=== PATIENT | female | born 1945 | race Caucasian/White ===

== ENCOUNTER 2023-01-14 14:18 | Emergency (ER) | payer MEDICARE, SELFPAY ==
[2023-01-14 14:32] VITALS: BP 134/74; PULSE 81; RESP 18; TEMP 36.4; O2SAT 96; BMI 26.6
--- NOTE | 2023-01-14 14:46 | CRLHL7_ITS ---
For Patients: As a result of the Century Cures Act, medical imaging exams and procedure reports are released immediately into your electronic medical record. You may view this report before your referring provider. If you have questions, please contact your health care provider. Indication: Chest pain Technique: Chest 1 view Comparison: Chest x-ray 05/15/2022 Findings/Impression: Cardiovascular and mediastinum: Normal heart size with mild aortic tortuosity. Lungs and pleural space: No pleural effusion or pneumothorax. No focal pulmonary consolidation. Bones and soft tissues: No acute findings. Dictated by Harjeet Lozada MD @ 01/14/2023 3:18:50 PM (Electronically Signed)
[2023-01-14 15:13] LABS: Basophils Absolute Auto 0.03 K/uL (0.00-0.30); Basophils Percent Auto 0.4 % (0.0-3.0); Eosinophils Absolute Auto 0.07 K/uL (0.00-0.50); Hematocrit 40.8 % (33.0-51.0); Hemoglobin* 13.4 gm/dL (12.0-16.0); Immature Granulocytes Abs Auto 0.07 K/uL (0.00-0.30); Lymphocytes Absolute Auto 2.05 K/uL (0.90-2.90); Lymphocytes Percent Auto 28.1 % (20-44); Mean Corpuscular HGB Conc 33 gm/dL (32-36); Mean Corpuscular Hemoglobin 30 pg (26-34); Mean Corpuscular Volume 90 fL (80-100); Monocytes Percent Auto 6.3 % (0.0-11.0); Neutrophils Absolute Auto 4.62 K/uL (1.7-7.0); Neutrophils Percent Auto 63.2 % (42.0-72.0); Platelet Count* 246 K/uL (140-440); RDW Coefficient of Variation % 13.2 % (11.5-15.5); Red Blood Count 4.53 m/uL (4.00-5.20)
[2023-01-14 15:20] LABS: Slide Review Reflex No
[2023-01-14 15:25] LABS: Chloride* 108 mmol/L (96-114)
[2023-01-14 15:26] LABS: Potassium* 3.8 mmol/L (3.6-5.1); Sodium* 137 mmol/L (135-149)
[2023-01-14 15:28] LABS: Creatinine* 0.8 mg/dL (0.5-1.5); Est. Creatinine Clearance* 50.02; Estimated Glomerular Filt Rate 76 ml/min
[2023-01-14 15:29] LABS: Blood Urea Nitrogen* 18 mg/dL (7-30); Calcium* 9.2 mg/dL (8.4-10.6); Carbon Dioxide* 22 mmol/L (20-32); Glucose* 101 mg/dL (60-115)
[2023-01-14 15:42] LABS: NT Pro B Type NatriureticPept* 4330 pg/mL; Troponin I* 0.47 ng/mL (0.01-0.04)
--- NOTE | 2023-01-14 15:59 | ED_ITS ---
HPI - Chest Pain General Chief Complaint: Chest Pain Stated Complaint: Shoulder/head/teeth pain--heart attack concern Time Seen by Provider: 01/14/23 14:28 History of Present Illness HPI narrative: Patient is a 77-year-old woman who developed chest pain with radiation to her jaw 2 days ago wall walking in the heat. Patient went home and rested and felt better. Today she developed shortness of breath with minimal chest pain upon ambulating in her house. She has had shortness of breath with activity as well. She has had no nausea no vomiting no fevers no chills no change in her bowel or bladder. Patient has history of takotsubo cardiomyopathy after stressful event states she has been under stress currently. She states she has been compliant with her medications which include atorvastatin losartan for a cardiovascular reasons. No other complaints patient otherwise feels like she has been in her usual state of health. Related Data Home Medications Medication Instructions Recorded Confirmed albuterol sulfate 90 mcg/actuation inhalation 05/15/22 05/15/22 aerosol inhaler atorvastatin 40 mg tablet 40 mg PO 05/15/22 05/15/22 levothyroxine 100 mcg tablet 100 mcg PO 05/15/22 05/15/22 losartan 50 mg tablet 50 mg PO 05/15/22 05/15/22 mometasone-formoterol HFA 200 inhalation 05/15/22 05/15/22 mcg-5 mcg/actuation aerosol inhaler (Dulera) pantoprazole 20 mg tablet,delayed mg PO 05/15/22 05/15/22 release Allergies Allergy/AdvReac Type Severity Reaction Status Date / Time Penicillins Allergy Verified 01/14/23 14:36 Sulfa (Sulfonamide Allergy Verified 01/14/23 14:36 Antibiotics) Review of Systems Status of ROS Reports: 10 or more systems reviewed and unremarkable except as noted in History and below [facility] Medical History (Updated 01/14/23 @ 16:19 by Dallas Edward MD) Hyperlipidemia ?E78.5 - Hyperlipidemia, unspecified (ICD-10) Hypertension ?I10 - Essential (primary) hypertension (ICD-10) Takotsubo cardiomyopathy ?I51.81 - Takotsubo syndrome (ICD-10) Flu ?J11.1 - Influenza due to unidentified influenza virus with other respiratory manifestations (ICD-10) Wheeze ?R06.2 - Wheezing (ICD-10) Cough ?R05.9 - Cough, unspecified (ICD-10) Social History Smoking Status: Never smoker Non-prescribed substance use: denies use Exam Narrative Exam Narrative: EXAM GENERAL: Patient appears comfortable and well. EYES: No scleral icterus. ENT: Tympanic membranes and oropharynx normal. THYROID: no thyroid nodules or thyromegaly. LYMPH: No supraclavicular or cervical lymphadenopathy. SKIN: Visible skin seen during exam normal or with benign process only. EXT: No dependent lower extremity pedal edema. HEART: Regular rate and rhythm with no murmurs, rubs, or gallops. LUNGS: Clear to auscultation bilaterally with no crackles or wheezes. ABD: Soft, non tender, non distended. PSYCH: Good eye contact, speech is not pressured. Const Vital Signs, click to edit/add: Vital Signs - 24 hr 01/14/23 14:32 01/14/23 16:05 01/14/23 16:06 Temperature 97.6 F Pulse Rate 74 73 Pulse Rate [Right Pulse Oximeter] 81 Respiratory Rate 18 Blood Pressure 144/87 H 144/87 H Blood Pressure [Right Upper Arm] 134/74 Pulse Oximetry 96 91 97 Oxygen Delivery Method Room Air Course Course Hospital Course: Patient seen examined. EKG troponin electrolytes blood count proBNP chest x-ray pending. Vital Signs Vital signs: Initial Vital Signs Temperature 97.6 F 01/14/23 14:32 Temperature Source Temporal Artery Scan 01/14/23 14:32 Pulse Rate 81 01/14/23 14:32 Respiratory Rate 18 01/14/23 14:32 Blood Pressure 134/74 01/14/23 14:32 Blood Pressure Mean 94 01/14/23 14:32 Blood Pressure Position Sitting 01/14/23 14:32 Pulse Oximetry 96 01/14/23 14:32 Oxygen Delivery Method Room Air 01/14/23 14:32 Vital Signs Temperature 97.6 F 01/14/23 14:32 Pulse Rate 81 01/14/23 14:32 Respiratory Rate 18 01/14/23 14:32 Blood Pressure 134/74 01/14/23 14:32 Pulse Oximetry 96 01/14/23 14:32 Oxygen Delivery Method Room Air 01/14/23 14:32 Temperature 97.6 F 01/14/23 14:32 Pulse Rate 73 01/14/23 16:06 Respiratory Rate 18 01/14/23 14:32 Blood Pressure 144/87 H 01/14/23 16:06 Pulse Oximetry 97 01/14/23 16:06 Oxygen Delivery Method Room Air 01/14/23 14:32 MDM - Chest Pain MDM Narrative Medical decision making narrative: Patient is 77-year-old woman with history of takotsubo cardiomyopathy approximately 7-8 years ago who presents with chest pain occurring 48 hours ago with a mild recurrence earlier today. EKG upon my review shows lateral and inferior flipped T-waves. Her troponin does come back at 0.47. At this time I did speak with Cardiology and they do recommend aspirin 325 as well as metoprolol 25 mg orally. They do accept the patient is a transfer with a less than 4 hour delay. She will remain on telemetry. Monitor for return of symptoms. Patient is known to the [facility] due to her history of takotsubo cardiomyopathy. Differential Diagnosis Differential diagnosis: Likely fracture of rib, pneumothorax, stable angina, unstable angina pectoris, atypical chest pain, st elevation myocardial infarction, costochondritis and chest pain Lab Data Labs: Lab Results 01/14/23 Range/Units 15:05 WBC 7.30 (4.50-11.00) K/uL RBC 4.53 (4.00-5.20) m/uL Hgb 13.4 (12.0-16.0) gm/dL Hct 40.8 (33.0-51.0) % MCV 90 (80-100) fL MCH 30 (26-34) pg MCHC 33 (32-36) gm/dL RDW Coeff of Rosa 13.2 (11.5-15.5) % Plt Count 246 (140-440) K/uL Neut % (Auto) 63.2 (42.0-72.0) % Lymph % (Auto) 28.1 (20-44) % O'Brien % (Auto) 6.3 (0.0-11.0) % Eos % (Auto) 1.0 (0.0-7.0) % Baso % (Auto) 0.4 (0.0-3.0) % Neut # (Auto) 4.62 (1.7-7.0) K/uL Lymph # (Auto) 2.05 (0.90-2.90) K/uL O'Brien # (Auto) 0.50 (0.00-0.90) K/UL Eos # (Auto) 0.07 (0.00-0.50) K/uL Baso # (Auto) 0.03 (0.00-0.30) K/uL Abs Immat Gran (auto) 0.07 (0.00-0.30) K/uL Imm/Tot Granulo (auto) 1.0 % Sodium 137 (135-149) mmol/L Potassium 3.8 (3.6-5.1) mmol/L Chloride 108 (96-114) mmol/L Carbon Dioxide 22 (20-32) mmol/L BUN 18 (7-30) mg/dL Creatinine 0.8 (0.5-1.5) mg/dL Estimated Creat Clear 50.02 Estimated GFR 76 ml/min Glucose 101 (60-115) mg/dL Calcium 9.2 (8.4-10.6) mg/dL Troponin I 0.47 H* (0.01-0.04) ng/mL NT-Pro-B Natriuret Pep 4330 pg/mL Discharge Plan Discharge Clinical Impression: Non-ST elevated myocardial infarction (non-STEMI) Patient Disposition: Xfer [facility] Discharge Location: [facility] Condition: Stable Instructions: High Troponin Levels (ED) Activity Level: Other Discharge Diet: Other Prescriptions: No Action losartan 50 mg tablet 50 mg PO Patient Comments: TAKE ONE TABLET BY MOUTH ONE TIME DAILY levothyroxine 100 mcg tablet 100 mcg PO Patient Comments: TAKE ONE TABLET BY MOUTH ONE TIME DAILY atorvastatin 40 mg tablet 40 mg PO Patient Comments: TAKE ONE TABLET BY MOUTH ONE TIME DAILY AT BEDTIME pantoprazole 20 mg tablet,delayed release (DR/EC) PO Patient Comments: TAKE ONE TABLET BY MOUTH ONE TIME DAILY Dulera 200-5 mcg/actuation HFA aerosol inhaler inhalation Patient Comments: INHALE TWO PUFFS BY MOUTH TWICE DAILY albuterol sulfate 90 mcg/actuation HFA aerosol inhaler inhalation Patient Comments: Inhale 1-2 Puffs by mouth every 4 hours if needed for Shortness of Breath or Wheezing Follow Up/Referrals: Niall Long MD [Primary Care Provider] - Stand Alone Forms: P[employer] Info Instructions
[2023-01-14 16:05] VITALS: BP 144/87; PULSE 74; O2SAT 91
[2023-01-14 16:06] VITALS: BP 144/87; PULSE 73; O2SAT 97
[2023-01-14] MEDS: ASPIRIN 81 MG TAB.CHEW 324 MG PO (16:42)
[2023-01-14] MEDS: METOPROLOL TARTRATE 25 MG TABLET PO (16:42)
--- NOTE | 2023-01-14 17:17 | ED.NURSE ---
report given to Andres at [facility]
[2023-01-14 17:22] VITALS: PULSE 66; O2SAT 97
[2023-01-14 17:23] VITALS: BP 152/89; PULSE 68; O2SAT 96
[2023-01-14 17:36] VITALS: BP 152/89; PULSE 67; RESP 16
== END 2023-01-14 17:39 | disposition short-term general hospital (02) ==
PROVIDERS: Emergency Provider Internal Medicine; PCP Family Medicine
DX: I21.4 Non-ST elevation (NSTEMI) myocardial infarction (principal)
CPT/HCPCS: 36415; 71045; 80048; 83880; 84484; 85025; 93005; 99284; 99285; A9270

== ENCOUNTER 2023-01-14 17:33 | Outpatient (CLI) | payer MEDICARE, SELFPAY | END 2023-01-14 17:34 | disposition home or self-care (01) | LOC: AMB 01-19 10:35 | PROVIDERS: PCP Family Medicine; Visit Provider Emergency Medicine Emergency Medical Services | DX: I21.4 Non-ST elevation (NSTEMI) myocardial infarction (principal) | CPT/HCPCS: A0425; A0427 ==

== ENCOUNTER 2023-01-17 18:05 | Inpatient (IN) | payer MEDICARE, SELFPAY ==
[2023-01-17] VITALS (14 sets, daily range): BP systolic 118–173; BP diastolic 61–88; PULSE 59–75; RESP 18–20; TEMP 36.2–36.7; O2SAT 95–98; BMI 27.0; BMI 27.5
--- NOTE | 2023-01-17 18:23 | CRLHL7_ITS ---
For Patients: As a result of the Century Cures Act, medical imaging exams and procedure reports are released immediately into your electronic medical record. You may view this report before your referring provider. If you have questions, please contact your health care provider. INDICATION: Chest pain TECHNIQUE: Chest 2 views COMPARISON: 05/15/2022, 01/14/2023 FINDINGS: Lung volumes are mildly increased. Cardiomegaly. Tortuosity of the aorta. Mild areas of scarring. No infiltrate. No effusion. No edema or pneumothorax. No fracture. IMPRESSION: No acute findings. Dictated by Juan C Reyes MD @ 01/17/2023 8:05:21 PM (Electronically Signed)
--- NOTE | 2023-01-17 18:30 | ED.CHESTPAIN ---
HPI - Chest Pain General Date Seen: 01/17/23 Chief Complaint: Chest Pain Stated Complaint: chest feels off, heart attack on Wednesday Time Seen by Provider: 01/17/23 18:05 Source: patient and family Mode of arrival: ambulatory Limitations: no limitations History of Present Illness HPI narrative: This very nice 77-year-old female presents with chest pain, she says she just feels feels just is sick, he says he was recently at [facility] on Wednesday. Injury was diagnosed with an NSTEMI, ended up having Takosabu cardiomyopathy, she tells me she had a CT angiogram that was entirely negative, and also negative angiogram in 2019. She feels hot with some chills, she does not have any chest pain, just feeling across her chest. His she denies any pleuritic issues associated with this week, think leg swelling, coughing, wheezing, syncope, palpitations, associated with this. She is in with her , admits that she thinks her anxiety is going to best of her. She is taking her medications as directed, MD complaint: chest discomfort Pertinent past history: other (takotsubo cardiomyopathy) Prior episodes: Yes Onset: during rest Pain location: substernal and parasternal Pain radiation: none Severity: moderate Quality: heaviness Relieving factors: other (Acetaminophen) Exacerbating factors: nothing Treatment prior to arrival: other ( acetaminophen) Risk Factors Thoracic aortic dissection risk factors: none Related Data On Oral Contraceptives: No Home Medications Medication Instructions Recorded Confirmed albuterol sulfate 90 mcg/actuation inhalation 05/15/22 05/15/22 aerosol inhaler atorvastatin 40 mg tablet 40 mg PO 05/15/22 05/15/22 levothyroxine 100 mcg tablet 100 mcg PO 05/15/22 05/15/22 losartan 50 mg tablet 50 mg PO 05/15/22 05/15/22 mometasone-formoterol HFA 200 inhalation 05/15/22 05/15/22 mcg-5 mcg/actuation aerosol inhaler (Dulera) pantoprazole 20 mg tablet,delayed mg PO 05/15/22 05/15/22 release Allergies Allergy/AdvReac Type Severity Reaction Status Date / Time Penicillins Allergy Verified 01/14/23 14:36 Sulfa (Sulfonamide Allergy Verified 01/14/23 14:36 Antibiotics) Review of Systems Status of ROS Reports: 10 or more systems reviewed and unremarkable except as noted in History and below [facility] Medical History Hyperlipidemia ?E78.5 - Hyperlipidemia, unspecified (ICD-10) Hypertension ?I10 - Essential (primary) hypertension (ICD-10) Takotsubo cardiomyopathy ?I51.81 - Takotsubo syndrome (ICD-10) Flu ?J11.1 - Influenza due to unidentified influenza virus with other respiratory manifestations (ICD-10) Wheeze ?R06.2 - Wheezing (ICD-10) Cough ?R05.9 - Cough, unspecified (ICD-10) Social History Smoking Status: Never smoker Non-prescribed substance use: denies use Exam Narrative Exam Narrative: Patient is seen and stabilization room 2, she is teary, she is otherwise nontoxic, with vital signs as listed. Pupils are equal round reactive to light, there is no scleral icterus redness, carotid upstrokes are equal, JVP is flat, her chest is good air entry bilateral with no wheezing crackles noted there is no pleuritic pain, or splinting. Heart sounds no clicks murmurs or gallops, and no rubs are noted. Abdomen is soft and obese there is no guarding, no organomegaly, she moves all extremities independently well, with absence of pitting edema. Symmetrical strength bilaterally, both excellent distal and proximal. Skin reveals no petechiae rashes Const Vital Signs, click to edit/add: Vital Signs - 24 hr 01/17/23 18:13 01/17/23 18:27 01/17/23 18:30 Temperature 98.1 F Pulse Rate 67 70 Pulse Rate [Pulse Oximeter] 75 Respiratory Rate 20 Blood Pressure Blood Pressure [Right Upper Arm] 173/88 H Pulse Oximetry 97 96 97 Oxygen Delivery Method Room Air 01/17/23 18:32 01/17/23 18:45 01/17/23 18:47 Temperature Pulse Rate 68 71 70 Pulse Rate [Pulse Oximeter] Respiratory Rate 18 18 Blood Pressure 143/80 H 135/78 Blood Pressure [Right Upper Arm] Pulse Oximetry 96 96 96 Oxygen Delivery Method Room Air Room Air 01/17/23 19:00 01/17/23 19:02 01/17/23 19:15 Temperature Pulse Rate 67 67 62 Pulse Rate [Pulse Oximeter] Respiratory Rate Blood Pressure 137/78 Blood Pressure [Right Upper Arm] Pulse Oximetry 96 96 97 Oxygen Delivery Method 01/17/23 19:30 01/17/23 19:32 01/17/23 19:45 Temperature Pulse Rate 59 L 62 61 Pulse Rate [Pulse Oximeter] Respiratory Rate Blood Pressure 138/74 Blood Pressure [Right Upper Arm] Pulse Oximetry 96 96 95 Oxygen Delivery Method Documenting provider has reviewed patient's vital signs: yes Course Reevaluation(s) Time of Reevaluation #1: 19:32 Reevaluation #1: Patient reports feeling better, less if not no pain at all. Her troponin came back at 0.16 this is less than the 0.27 elevation, I was able to read through the [employer] literature, she had a non occlusive CT angiogram done. It showed less than 50% occlusion of the LAD. They recommended medical management, and pain control at this time. I will talk to the manager financial services after the 2nd troponin EKG is done. But I would anticipate being able to send this nice lady home. She was reassured by this conversation. Time of Reevaluation #2: 21:40 Reevaluation #2: I spoke to the manager financial services Dr.Nick garcia he recommended watching Jill overnight, given her low slight the arise. I asked him when we should call him back, he did really give me a firm answer on this, but if we worried about with ongoing chest pain elevated troponins, then fall back would be appropriate. Beta-corinna and pain control is suggested, and also treatment for anxiety. I spoke to our hospitalist about admission and she accepted her Vital Signs Vital signs: Initial Vital Signs Temperature 98.1 F 01/17/23 18:13 Temperature Source Temporal Artery Scan 01/17/23 18:13 Pulse Rate 75 01/17/23 18:13 Pulse Rhythm Regular 01/17/23 18:13 Respiratory Rate 20 01/17/23 18:13 Blood Pressure 173/88 H 01/17/23 18:13 Blood Pressure Mean 116 H 01/17/23 18:13 Blood Pressure Position Supine 01/17/23 18:13 Pulse Oximetry 97 01/17/23 18:13 Oxygen Delivery Method Room Air 01/17/23 18:13 Vital Signs Temperature 98.1 F 01/17/23 18:13 Pulse Rate 75 01/17/23 18:13 Respiratory Rate 20 01/17/23 18:13 Blood Pressure 173/88 H 01/17/23 18:13 Pulse Oximetry 97 01/17/23 18:13 Oxygen Delivery Method Room Air 01/17/23 18:13 Temperature 98.1 F 01/17/23 18:13 Pulse Rate 61 01/17/23 19:45 Respiratory Rate 18 01/17/23 18:47 Blood Pressure 138/74 01/17/23 19:32 Pulse Oximetry 95 01/17/23 19:45 Oxygen Delivery Method Room Air 01/17/23 18:47 MDM - Chest Pain MDM Narrative Medical decision making narrative: During the evaluation of this patient I considered multiple differential diagnosis is. The life-threatening differential diagnosis include coronary disease/GA, pulmonary embolism, pneumothorax, pneumonia, and aortic dissection. Other differential diagnosis included but were not limited to pericarditis, myocarditis, chest wall pain, GERD, esophageal rupture, rib fracture contusion, pleurisy, as well as other etiologies. Medical Records Data Attestation: I reviewed the patient's medical records. Lab Data Attestation: I reviewed the patient's lab results. Labs: Lab Results 01/17/23 01/17/23 01/17/23 Range/Units 18:35 18:55 20:26 WBC 7.51 (4.50-11.00) K/uL RBC 4.57 (4.00-5.20) m/uL Hgb 13.5 (12.0-16.0) gm/dL Hct 41.0 (33.0-51.0) % MCV 90 (80-100) fL MCH 30 (26-34) pg MCHC 33 (32-36) gm/dL RDW Coeff of Rosa 13.3 (11.5-15.5) % Plt Count 258 (140-440) K/uL Neut % (Auto) 68.2 (42.0-72.0) % Lymph % (Auto) 25.2 (20-44) % Dickinson % (Auto) 5.3 (0.0-11.0) % Eos % (Auto) 0.8 (0.0-7.0) % Baso % (Auto) 0.4 (0.0-3.0) % Neut # (Auto) 5.12 (1.7-7.0) K/uL Lymph # (Auto) 1.89 (0.90-2.90) K/uL Dickinson # (Auto) 0.40 (0.00-0.90) K/UL Eos # (Auto) 0.06 (0.00-0.50) K/uL Baso # (Auto) 0.03 (0.00-0.30) K/uL Abs Immat Gran (auto) 0.01 (0.00-0.30) K/uL Imm/Tot Granulo (auto) 0.1 % INR 0.96 (0.91-1.10) APTT 30 (23-33) Seconds D-Dimer Quant (PE/DVT) 0.49 (0.00-0.50) ug/ml Sodium 138 (135-149) mmol/L Potassium 3.6 (3.6-5.1) mmol/L Chloride 110 (96-114) mmol/L Carbon Dioxide 22 (20-32) mmol/L BUN 14 (7-30) mg/dL Creatinine 0.8 (0.5-1.5) mg/dL Estimated Creat Clear 50.02 Estimated GFR 76 ml/min Glucose 113 (60-115) mg/dL Calcium 9.3 (8.4-10.6) mg/dL NT-Pro-B Natriuret Pep 2070 pg/mL SARS-CoV-2 (PCR) Negative SARS-CoV-2 (Negative) Influenza Type A (PCR) Negative PCR FLU A (Negative) Influenza Type B (PCR) Negative PCR FLU B (Negative) RSV (PCR) Negative PCR RSV (Negative) POC Troponin I 0.16 H 0.21 H (0.01-0.04) ng/ml Imaging Data Chest x-ray: Attestation: I have reviewed the pertinent imaging results. My impression: No acute chest Radiologist's impression: Patient: [facility] Facility: [facility] Site . Site : 1945 Study: XRay Chest 2V-01/17/2023 6:46:25 PM Ordering Physician: Seper Seamus Final Report: INDICATION: Chest pain TECHNIQUE: Chest 2 views COMPARISON: 05/15/2022, 01/14/2023 FINDINGS: Lung volumes are mildly increased. Cardiomegaly. Tortuosity of the aorta. Mild areas of scarring. No infiltrate. No effusion. No edema or pneumothorax. No fracture. IMPRESSION: No acute findings. Dictated by Juan C Reyes MD @ 01/17/2023 8:05:21 PM (Electronic Signature) ECG Data Attestation: I personally reviewed and interpreted this ECG as follows: Prior ECG tracings: available for review Interpretation: EKG shows normal sinus rhythm, no acute changes noted. Discharge Plan Discharge Clinical Impression: Elevated troponin I level, Takotsubo syndrome, Chest pain Patient Disposition: Admitted As Observation
[2023-01-17 18:47] LABS: Basophils Absolute Auto 0.03 K/uL (0.00-0.30); Basophils Percent Auto 0.4 % (0.0-3.0); Eosinophils Absolute Auto 0.06 K/uL (0.00-0.50); Eosinophils Percent Auto 0.8 % (0.0-7.0); Hemoglobin* 13.5 gm/dL (12.0-16.0); Immature Granulocytes Abs Auto 0.01 K/uL (0.00-0.30); Immature Granulocytes Pct Auto 0.1 %; Lymphocytes Absolute Auto 1.89 K/uL (0.90-2.90); Lymphocytes Percent Auto 25.2 % (20-44); Mean Corpuscular HGB Conc 33 gm/dL (32-36); Mean Corpuscular Hemoglobin 30 pg (26-34); Mean Corpuscular Volume 90 fL (80-100); Monocytes Percent Auto 5.3 % (0.0-11.0); Neutrophils Absolute Auto 5.12 K/uL (1.7-7.0); Neutrophils Percent Auto 68.2 % (42.0-72.0); Platelet Count* 258 K/uL (140-440); RDW Coefficient of Variation % 13.3 % (11.5-15.5); Red Blood Count 4.57 m/uL (4.00-5.20); White Blood Count* 7.51 K/uL (4.50-11.00)
[2023-01-17] MEDS: ASPIRIN 81 MG TAB.CHEW 324 MG PO (18:50)
[2023-01-17 18:51] LABS: Slide Review Reflex No
[2023-01-17] MEDS: LORazepam 0.5 MG TABLET PO (18:51)
[2023-01-17] MEDS: 0.9 % SODIUM CHLORIDE 1000 ml 1,000 ML IV (18:51)
[2023-01-17 18:59] LABS: Chloride* 110 mmol/L (96-114); Sodium* 138 mmol/L (135-149)
[2023-01-17 19:00] LABS: Potassium* 3.6 mmol/L (3.6-5.1)
[2023-01-17 19:02] LABS: Carbon Dioxide* 22 mmol/L (20-32); Creatinine* 0.8 mg/dL (0.5-1.5); Est. Creatinine Clearance* 50.02; Estimated Glomerular Filt Rate 76 ml/min
[2023-01-17 19:03] LABS: Blood Urea Nitrogen* 14 mg/dL (7-30); Calcium* 9.3 mg/dL (8.4-10.6); Glucose* 113 mg/dL (60-115); INR 0.96 (0.91-1.10); Prothrombin Time 13.4 Seconds
[2023-01-17 19:04] LABS: Partial Thromboplastin Time* 30 Seconds (23-33)
[2023-01-17 19:06] LABS: D Dimer Quantitative* 0.49 ug/ml (0.00-0.50)
[2023-01-17 19:13] LABS: NT Pro B Type NatriureticPept* 2070 pg/mL
[2023-01-17 19:38] LABS: PCR FLU A Negative PCR FLU A (Negative); PCR FLU B Negative PCR FLU B (Negative); PCR RSV Negative PCR RSV (Negative)
[2023-01-17 19:40] LABS: SARS PCR* Negative SARS-CoV-2 (Negative)
[2023-01-17 19:44] LABS: Troponin, Point-of-Care* 0.16 ng/ml (0.01-0.04)
[2023-01-17 20:46] LABS: Troponin, Point-of-Care* 0.21 ng/ml (0.01-0.04)
--- NOTE | 2023-01-17 22:25 | P.IMHP_ITS ---
Hospitalist- H&P: HPI History of Present Illness Time Seen by Provider: 22:20 Date Seen: 01/18/23 Chief complaint: chest pains, heart attack on Wednesday Narrative: Carissa Bradley is a 77 year old female with a h/o her second takotsubo's heart attack this past week for which she was at [place], discharged Wednesday. She has been resting in bed quite a bit since getting home from hospital and had a slight frontal headache this morning. Around 2 or 3:00 p.m. she laid down for a nap and then noticed a pulsating pain in her back and lower ribcage. She felt like she was having heart attack all over again. She denies any shortness of breath, but did notice palpitations and felt like her heart was flipping around. She had to go up the stairs and noticed that her heart lb every time she exerted herself even a little bit, so she had to take it step by step very slowly. She felt sick and this made her anxious. She got Ativan in the emergency department and is now feeling back to her baseline. 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 It was hot and stressful. She notes that there has also been quite a bit of stress with her sister lately was in a mental health facility at present and has been calling Carissa several times a day to ask why she is there and what is going on. It has been very bothersome to Carissa and she finally had to block her sister. She was similar with her father and this is bringing up a lot of emotions from that time as well. She was sent to [place] [facility] for what was thought to be an NSTEMI, but turned out to be a takotsubo on ECHO and she had a reduced EF around 35%, whereas it had been 55-60% earlier this year. She was started on baby aspirin and metoprolol and her losartan dose was decreased. Review of Systems Status of ROS: Reports: 10 or more systems reviewed and unremarkable except as noted in History and below [facility] Medical History (Updated 01/18/23 @ 00:53 by Harmony Jose MD) Non-ST elevated myocardial infarction (non-STEMI) (~01/14/23) ?I21.4 - Non-ST elevation (NSTEMI) myocardial infarction (ICD-10) Hypothyroidism ?E03.9 - Hypothyroidism, unspecified (ICD-10) GERD (gastroesophageal reflux disease) ?K21.9 - Gastro-esophageal reflux disease without esophagitis (ICD-10) Asthma ?J45.909 - Unspecified asthma, uncomplicated (ICD-10) Hyperlipidemia ?E78.5 - Hyperlipidemia, unspecified (ICD-10) Hypertension ?I10 - Essential (primary) hypertension (ICD-10) Takotsubo cardiomyopathy (~2019) ?I51.81 - Takotsubo syndrome (ICD-10) Surgical History (Updated 01/17/23 @ 22:04 by Harmony Jose MD) Hx of colonoscopy ?Z98.890 - Other specified postprocedural states (ICD-10) Family History (Updated 01/17/23 @ 22:04 by Harmony Jose MD) Sister Alzheimer's dementia Breast cancer Aunt Breast cancer Family/Other Breast cancer Mother Cardiovascular disease Father COPD (chronic obstructive pulmonary disease) Social History (Updated 01/17/23 @ 23:55 by Harmony Jose MD) Narrative: . Lives in a house with her . Denies tobacco, EtOH, recreational drug use. What is your current living situation?: I presently have a place to live Problems where you live: no known problems Problems where you live details: NA In the past 12 months, utilities in danger of being shut off: no In the past 12 mos, have been you worried that your food would run out before you had money to buy more?: never true In the past 12 mos, the food you bought just didn't last and you didn't have money to buy more?: never true Smoking Status: Never smoker How often do you have a drink containing alcohol: never AUDIT-C Alcohol total score: 0 Non-prescribed substance use: denies use Caffeine: Yes (coffee) How often does anyone, including family, friends and others, physically hurt you : never How often does anyone, including family, friends and others, insult or talk down to you: never How often does anyone, including family, friends and others, threaten you with harm: never How often does anyone, including family, friends and others, scream or curse at you: never service: No Meds Home Medications and Allergies Home Medications Medication Instructions Recorded Confirmed Type albuterol sulfate 90 mcg/actuation 2 inh inhalation Q4H PRN 05/15/22 01/17/23 History aerosol inhaler atorvastatin 40 mg tablet 40 mg PO HS 05/15/22 01/17/23 History levothyroxine 100 mcg tablet 100 mcg PO DAILY 05/15/22 01/17/23 History losartan 50 mg tablet 25 mg PO DAILY 05/15/22 01/17/23 History mometasone-formoterol HFA 200 1 puff inhalation DAILY 05/15/22 01/17/23 History mcg-5 mcg/actuation aerosol inhaler (Dulera) pantoprazole 20 mg tablet,delayed 20 mg PO DAILY 05/15/22 01/17/23 History release aspirin 81 mg capsule 81 mg PO DAILY 01/17/23 01/17/23 History metoprolol succinate 25 mg 25 mg PO DAILY 01/17/23 01/17/23 History tablet,extended release 24 hr Allergies Allergy/AdvReac Type Severity Reaction Status Date / Time Penicillins Allergy Verified 01/14/23 14:36 Sulfa (Sulfonamide Allergy Verified 01/14/23 14:36 Antibiotics) Exam Narrative: Exam Narrative: General: No acute distress. Awake alert oriented x3. HEENT: Normocephalic atraumatic, pupils equally round and reactive to light and accommodation. Oropharynx clear. Mucous membranes are moist. No cervical lymphadenopathy, thyromegaly or carotid bruits. No JVD. Cardiovascular: Regular rate and rhythm. No murmurs, gallops, or rubs. Chest: No increased work of breathing. Clear to auscultation bilaterally. No crackles or wheezes. Abdomen: Bowel sounds present. Soft, nondistended, nontender. No hepatosplenomegaly or masses. Extremities: No edema, no cyanosis or clubbing. Skin: No jaundice, no pallor, no rashes. Const: Vital Signs, click to edit/add: Vital Signs - 24 hr 01/17/23 18:13 01/17/23 18:27 01/17/23 18:30 Temperature 98.1 F Pulse Rate 67 70 Pulse Rate [Pulse Oximeter] 75 Respiratory Rate 20 Blood Pressure Blood Pressure [Le ft Arm] Blood Pressure [Ri ght Upper Arm] 173/88 H Pulse Oximetry 97 96 97 Oxygen Delivery Me thod Room Air 01/17/23 18:32 08/06/23 18:45 01/17/23 18:47 Temperature Pulse Rate 68 71 70 Pulse Rate [Pulse Oximeter] Respiratory Rate 18 18 Blood Pressure 143/80 H 135/78 Blood Pressure [Le ft Arm] Blood Pressure [Ri ght Upper Arm] Pulse Oximetry 96 96 96 Oxygen Delivery Me thod Room Air Room Air 01/17/23 19:00 01/17/23 19:02 01/17/23 19:15 Temperature Pulse Rate 67 67 62 Pulse Rate [Pulse Oximeter] Respiratory Rate Blood Pressure 137/78 Blood Pressure [Le ft Arm] Blood Pressure [Ri ght Upper Arm] Pulse Oximetry 96 96 97 Oxygen Delivery Me thod 01/17/23 19:30 01/17/23 19:32 01/17/23 19:45 Temperature Pulse Rate 59 L 62 61 Pulse Rate [Pulse Oximeter] Respiratory Rate Blood Pressure 138/74 Blood Pressure [Le ft Arm] Blood Pressure [Ri ght Upper Arm] Pulse Oximetry 96 96 95 Oxygen Delivery Me thod 01/17/23 21:58 Temperature 97.2 F L Pulse Rate Pulse Rate [Pulse Oximeter] 62 Respiratory Rate 18 Blood Pressure Blood Pressure [Le ft Arm] 118/71 Blood Pressure [Ri ght Upper Arm] Pulse Oximetry 98 Oxygen Delivery Me thod Room Air Hospitalist - H&P: Result Labs Labs: Short CBC 01/17/23 Range/Units 18:35 WBC 7.51 (4.50-11.00) K/uL Hgb 13.5 (12.0-16.0) gm/dL Hct 41.0 (33.0-51.0) % Plt Count 258 (140-440) K/uL [facility] 01/17/23 18:35 Sodium 138 Potassium 3.6 Chloride 110 Carbon Dioxide 22 BUN 14 Creatinine 0.8 Glucose 113 Calcium 9.3 01/17/2023 EKG: Normal sinus rhythm, 61 beats per minute. Normal EKG. 01/17/2023 EKG: Normal sinus rhythm, 76 beats per minute. Normal EKG. Ordering Physician: Seamus Escobedo M.D. Date of Service: 01/17/23 Procedure(s): XR chest 2V Accession Number(s): [id number] cc: Seamus Escobedo M.D.; Niall Long M.D.~ For Patients: As a result of the Century Cures Act, medical imaging exams and procedure reports are released immediately into your electronic medical record. You may view this report before your referring provider. If you have questions, please contact your health care provider. INDICATION: Chest pain TECHNIQUE: Chest 2 views COMPARISON: 05/15/2022, 01/14/2023 FINDINGS: Lung volumes are mildly increased. Cardiomegaly. Tortuosity of the aorta. Mild areas of scarring. No infiltrate. No effusion. No edema or pneumothorax. No fracture. IMPRESSION: No acute findings. Dictated by Juan C Reyes MD @ 01/17/2023 8:05:21 PM (Electronically Signed) Assessment and Plan Assessment and plan (1) Non-ST elevated myocardial infarction (non-STEMI): Problem comment: - Per [facility] record: Presented to [facility] on 01/14/23 with bilateral jaw/neck/shoulder/chest pain. First appreciated pain on Wednesday afternoon while working in her garden. Improved with rest & cooling down inside, so she did not seek medical care. Symptoms returned when working in her yard again. Pain similar to when she had cardiac issues with Takotsubo cardiomyopathy a few years ago. Also appreciates increased SOB for the past 2-3 days with using stairs at home. In the OSH ED, vital signs were normal. Labs remarkable for troponin 0.47, pro-BNP 4330. BMP & CBC wnl. EKG with reported lateral & inferior inverted T waves. Case discussed with Dr. Taylor of Cardiology who recommended ASA load, metoprolol 25mg, & transfer to [facility] for further workup/mgmt. Upon admission, Cardiology evaluated, ECHO showed new cardiomyopathy EF 35-40%-favor stress/Takotsubo (EF 55-60% on ECHO 08/17/22). CT angiogram showed non-obstructive CAD, no flow limiting disease. She was started on metoprolol XL 25mg qday and will have close follow up with cardiology in clinic. - CP today with rising troponin. Dr. Escobedo in ER discussed with food and drug inspector operator weapon locating radar at [place] [facility] who recommended admission, follow trop and give lorazepam. She had good results with lorazepam given in the emergency department. Check another troponin this evening and if it is trending downward, recheck in the morning. Keep on telemetry overnight. Check an EKG in the morning as well. Call Pierre if there are any EKG changes or if she is not improving. Status: Acute (2) Takotsubo syndrome: Problem comment: - 2019 and 01/14/2023 Status: Acute (3) Chest pain: Status: Acute (4) Elevated troponin I level: Status: Acute (5) Hypothyroidism: Problem comment: - check TSH and continue levothyroxine Status: Chronic Plan Discussed anxiety. I recommended that she see her primary care provider to discuss starting an SSRI for anxiety as well as to establish with a counselor to talk about the stress she is currently under because of her sister. She may need some p.r.n. lorazepam for home to bridge her until she can see her primary or start an SSRI. We also talked about recognizing heightened emotional situations, meditation and breathing exercises.
--- NOTE | 2023-01-17 23:04 | PC.NURSE ---
Admit 2144- Patient arrives to floor on stretcher, is ambulatory and steady. She denies chest pain, pain, or other feelings of illness. She is up ad zain, states understanding to call for help if she is lightheaded, weak, or dizzy.
[2023-01-17 23:11] LABS: Troponin I* 0.19 ng/mL (0.01-0.04)
[2023-01-18 03:00] VITALS: BP 112/67; PULSE 64; RESP 16; TEMP 36.4; O2SAT 97
[2023-01-18 06:43] LABS: Troponin I* 0.11 ng/mL (0.01-0.04)
--- NOTE | 2023-01-18 06:48 | PC.NURSE ---
Shift note: No c/o chest pain/tightness/heaviness, no nausea, no lightheadedness or dizziness, NSR per telemetry. Pt is independent in the room
[2023-01-18 07:00] VITALS: BP 134/74; PULSE 64; PULSE 68; RESP 16; TEMP 36.6; O2SAT 96
--- NOTE | 2023-01-18 09:19 | NUTR.NU ---
RDN with nutrition screen for low fat/low cholesterol diet. Heart healthy diet education provided. Discussed following a Mediterranean-style diet using the plate method that includes ? plate non-starchy vegetables and fruit, ? plate whole grains/starch, ? plate healthy protein (fish, poultry, legumes, nuts/seeds), and healthy fats. Discussed limiting saturated fat and sodium intake. Handouts provided to support discussion. RDN contact information provided and encouraged patient to call with questions. RDN to follow up as needed.
[2023-01-18] MEDS: LOSARTAN POTASSIUM 50 MG TABLET 25 MG PO (09:58)
[2023-01-18] MEDS: ASPIRIN 81 MG TAB.CHEW PO (09:58)
[2023-01-18] MEDS: OMEPRAZOLE 20 MG CAPSULE DR PO (09:59)
[2023-01-18] MEDS: LEVOTHYROXINE 100 MCG TABLET PO (09:59)
[2023-01-18] MEDS: METOPROLOL SUCCINATE (XL) 25 MG TAB PO (09:59)
[2023-01-18] MEDS: LORazepam 0.5 MG TABLET PO (10:10)
--- NOTE | 2023-01-18 12:25 | PC.NURSE ---
Dr. Clark in the room to visit with the patient. Pt was pleased with her conversation and stated that she felt comfortable discharging to home. All discharge instructions were given to patient. All forms were signed. All belongings were sent. Pt escorted to front entrance via dental office assistant.
--- NOTE | 2023-01-19 16:06 | PM.DS1 ---
DS: Providers Provider Date Seen: 01/19/23 Date of admission: 01/17/23 22:05 Primary care physician: Niall Long MD Admitting Clinician: Harmony Jose MD Attending Physician on discharge: Iliana Clark MD [facility] Date of Discharge: 01/18/23 DS: Diagnosis Discharge Diagnosis (1) Non-ST elevated myocardial infarction (non-STEMI): Status: Acute Problem details: -had just seen cards with admission last week. new chest pain with anxiety. patient presented with slightly elevated troponin. this down trended overnight and her meds were continued as outlined below. she was d/c with small amount of ativan. Her vitals were stable thoroughout. Her pain resolved with one dose of ativan in our ED on the day of admission. cards was consulted from [place] they were supportive of our admission and no need to transfer unless something changed. Per [facility] record: Presented to [facility] on 01/14/23 with bilateral jaw/neck/shoulder/chest pain. First appreciated pain on Wednesday afternoon while working in her garden. Improved with rest & cooling down inside, so she did not seek medical care. Symptoms returned when working in her yard again. Pain similar to when she had cardiac issues with Takotsubo cardiomyopathy a few years ago. Also appreciates increased SOB for the past 2-3 days with using stairs at home. In the OSH ED, vital signs were normal. Labs remarkable for troponin 0.47, pro-BNP 4330. BMP & CBC wnl. EKG with reported lateral & inferior inverted T waves. Case discussed with Dr. Taylor of Cardiology who recommended ASA load, metoprolol 25mg, & transfer to [facility] for further workup/mgmt. Upon admission, Cardiology evaluated, ECHO showed new cardiomyopathy EF 35-40%-favor stress/Takotsubo (EF 55-60% on ECHO 08/17/22). CT angiogram showed non-obstructive CAD, no flow limiting disease. She was started on metoprolol XL 25mg qday and will have close follow up with cardiology in clinic. (2) Takotsubo syndrome: Status: Acute Problem details: - 2018 and 01/14/2023 and 01/17/23 (3) Hypothyroidism: Status: Chronic Problem details: - check TSH and continue levothyroxine DS: Summary Hospital Course Hospital Course: HOSPITALIST DISCHARGE SUMMARY ATTENDING PHYSICIAN: Iliana Clark MD FINAL DIAGNOSIS: Takotsubo cardiomyopathy Non ST-elevation MT Anxiety HOSPITAL FOLLOWUP ISSUES: 1. Cardiology outpatient cardiology to follow decreased EF and symptoms previously arranged 2. Counseling for ongoing anxiety REFERRALS WHILE ADMITTED: Phone discussion with Cardiology REFERRALS AFTER DISCHARGE: Psychotherapy BRIEF HOSPITAL COURSE: Patient is a 77-year-old who presented with chest pain in a mildly elevated troponin. This is in light of a previous presentation and transfer to [facility] earlier in the week. Ultimately she was diagnosed with Takotsubo cardiomyopathy. Further details of that hospital stay were reviewed and are in the [facility] care record. On her subsequent presentation which was only 2 days after her discharge from [facility], she felt anxious and similar chest pain as she had had the week prior. She was treated with Ativan initially in the ED which resolved all of her symptoms. When her troponin was mildly elevated we discussed the case with [facility]. They felt comfortable continuing her medications and observing her on telemetry. She had no more chest pain and was able to ambulate without any shortness of breath or chest pain on the morning after admission. She was discharged in stable condition. SUBSTANTIVE NOTATIONS ON IMAGING, LAB, MICROBIOLOGY/PATHOLOGY STUDIES: See record DISCHARGE MEDICATIONS: See Reconciled list - SIGNIFICANT CHANGES: Ativan 0.25-0.5 mg b.i.d. p.r.n. REVIEW OF SYSTEMS No new chest pain or dyspnea Pain controlled No voiding difficulties Tolerating diet challenge PHYSICAL EXAM: CONSTITUTIONAL: Alert. cooperative. Insightful. VITAL SIGNS: see record. HEENT: Normocephalic, atraumatic. PERRL, EOMI, conjunctivae pink, no scleral icterus. Ears and nose externally normal. Pharynx normal. NECK: No JVD. No carotid bruit, no thyromegaly, no adenopathy. CHEST: Clear to auscultation bilaterally. HEART: S1 and S2 normal. Edema none ABDOMEN: Soft, nontender. Normal bowel sounds. MUSCULOSKELETAL: No gross joint deformity or swelling. NEURO: Cranial nerves intact. Grossly intact. No asymmetric findings. SKIN: No rashes, petechiae, concerning changes PSYCHIATRIC: Mood euthymic. DISPOSITION: Home with spouse Time spent on discharge 37 minutes. Status at Discharge Functional status at discharge: independent ambulation Overall status at discharge: patient is progressing back to baseline Time Spent with Patient Time attestation: Total time spent providing and/or coordinating discharge services: Time spent: Greater than 30 minutes Discharge Plan Discharge Disposition: Home, Self-Care Date of Admission: 01/17/23 22:05 Primary Care Provider: Niall Long Condition: Improved Anticipated Discharge Date/Time: 01/18/23 10:19 Discharge Medications: New lorazepam 0.5 mg Tablet 0.5 - 1 mg PO Q6H PRN (Reason: Anxiety) Qty: 30 0RF Continued losartan 50 mg tablet 25 mg PO DAILY levothyroxine 100 mcg tablet 100 mcg PO DAILY atorvastatin 40 mg tablet 40 mg PO HS pantoprazole 20 mg tablet,delayed release (DR/EC) 20 mg PO DAILY Dulera 200-5 mcg/actuation HFA aerosol inhaler 2 puff inhalation BID Patient Comments: albuterol sulfate 90 mcg/actuation HFA aerosol inhaler 2 inh inhalation Q4H PRN metoprolol succinate 25 mg tablet extended release 24 hr 25 mg PO DAILY aspirin 81 mg capsule 81 mg PO DAILY multivitamin [Daily Multi-Vitamin] Tablet 1 tab PO DAILY cyanocobalamin (vitamin B-12) 500 mcg tablet 500 mcg PO DAILY cholecalciferol (vitamin D3) 25 mcg (1,000 unit) capsule 25 mcg PO DAILY vitamin B complex [B Complex-Vitamin B12] Tablet 1 tab PO DAILY Discharge Orders: Discharge Order (Routine); Ordered 01/18/23 Ordered By: Iliana Clark Patient Education: Lorazepam (By mouth) Additional Instructions: 1. I agree with seeking out counseling for stress management and PTSD diagnosis. Consider: [facility] Prashant Gabriel DNP, APRN, [email or web address] [email or web address] [facility] [id number] 2. Use of lorazepam: 1 to 2 times a week, half to full tab as needed. Caution as we discussed. Activity Level: Activity as Tolerated Discharge Diet: Regular Follow Up Appointments: Prashant Gabriel [Other] (Please fax discharge summary and face sheet to Prashant Gabriel at [facility]. We will be having Prashant reach out to the patient to set up an outpatient/consult. 1-2 weeks We recommend an appt in the next: week month [facility] Prashant Gabriel DNP, APRN, [email or web address] [facility] [id number] ) Vidal Talley MD [Referring] - 01/25/23 11:45 am ([facility] ([address]) follow-up.) Niall Long MD [Primary Care Provider] - 01/25/23 (Dr. Long not available.) Forms: [employer] Info Instructions
== END 2023-01-18 10:58 | disposition home or self-care (01) | DRG 281 ==
LOC: ED 18:59 → MEDSURG 21:31
PROVIDERS: Admitting Provider Family Medicine; Emergency Provider Family Medicine; PCP Family Medicine; Visit Provider Family Medicine
DX: I21.4 Non-ST elevation (NSTEMI) myocardial infarction (principal); I51.81 Takotsubo syndrome; R07.9 Chest pain, unspecified; E03.9 Hypothyroidism, unspecified; F41.9 Anxiety disorder, unspecified; I10 Essential (primary) hypertension; E78.5 Hyperlipidemia, unspecified
CPT/HCPCS: 36415; 71046; 80048; 83880; 84443; 84484; 85025; 85379; 85610; 85730; 87631; 93005; 94761; 99285; A9270; J7030

== ENCOUNTER 2023-03-24 08:01 | Day surgery (SDC) | payer MEDICARE, SELFPAY ==
[2023-03-24] MEDS: TETRACAINE 0.5% OPHTH 1 DROP EYE-LEFT ×2 (08:15→08:20)
[2023-03-24] MEDS: KETOROLAC OPHTH 0.5% 1 DROP EYE-LEFT ×2 (08:15→08:20)
[2023-03-24 08:20] VITALS: BP 145/70; PULSE 58; RESP 16; TEMP 36.6; O2SAT 96; BMI 29.2
[2023-03-24] MEDS: SODIUM CHLORIDE 0.9 % (FLUSH) 10 ML SYRINGE IVF (08:50)
--- NOTE | 2023-03-24 08:50 | SUR.PREOP ---
The eye drops brought by the patient (Ketorolac, Oflaxacin and Prednisolone) are examined and I have determined they are labeled by the patient's pharmacy for this patient as prescribed by the surgeon. The bottles are intact, recently obtained and appear to be correct.
--- NOTE | 2023-03-24 09:16 | W.ANESCHARGE ---
Anesthesia Charges Start Date/Time Anesthesia Start Date: 03/24/23 Anesthesia Start Time: 09:44 Stop Date/Time Anesthesia Stop Date: 03/24/23 Anesthesia Stop Time: 10:15 Summary Extremes of Age - Over 70 or under 1: MDA
[2023-03-24] MEDS: TETRACAINE 0.5% OPHTH 2 DROP EYE-LEFT (09:47)
[2023-03-24] MEDS: BALANCED SALT IRRIG SOLN 15 ML EYE-LEFT (09:51)
--- NOTE | 2023-03-24 09:53 | P.ANES_ITS ---
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
[2023-03-24 10:21] VITALS: BP 163/77; PULSE 51; RESP 16; TEMP 36.3; O2SAT 96
--- NOTE | 2023-03-24 11:49 | W.PM.OPTPROC ---
Procedure Note Date of procedure: 03/24/23 Will [facility] bill your pro fee for this procedure?: Yes Procedure Description: SURGEON: Shannen Santos MD PREOPERATIVE DIAGNOSIS: Nuclear sclerotic cataract, left eye. POSTOPERATIVE DIAGNOSIS: Nuclear sclerotic cataract, left eye. NAME OF OPERATION: Phacoemulsification of cataract with posterior chamber intraocular lens implantation in the left eye. ANESTHESIA: Topical. ESTIMATED BLOOD LOSS: Less than 2 cc. COMPLICATIONS: None. PATHOLOGY SPECIMEN: None. INDICATIONS: See consult note for details. The risks, benefits and alternatives of the procedure were explained to the patient, who elected to proceed and signed informed consent to do so. PROCEDURE: The patient was brought to the pre-holding area where the left eye was identified as the operative eye. I placed my initials above this eye. The patient received eye drops consisting of 0.5% tetracaine, 1% tropicamide, 10% phenylephrine, and 0.5% ketorolac. The patient was then brought to the operating room where the left eye was again identified as the operative eye. The eye was prepped with Betadine and draped in the usual sterile ophthalmic fashion. A #15 super-sharp blade was used to create a paracentesis site. 1% non-preserved intracameral lidocaine was injected into the anterior chamber. Endocoat was injected into the anterior chamber. A 2.4 mm keratome was used to create a three-plane self-sealing incision 1 mm anterior to the temporal limbus. A cystotome was used to create an anterior capsular leaflet. The Utrata forceps were used to extend this to form a continuous curvilinear capsulorrhexis. Hydrodissection was performed. The cataract was removed with phacoemulsification using the [id number] technique. The irrigation and aspiration tip was used to remove the remaining cortex. Healon was injected into the capsular bag. An ORVILLE ZCB00 intraocular lens of 16.5 diopters was injected into the capsular bag. The irrigation and aspiration tip was used to remove the remaining viscoelastic. Balanced salt solution on a cannula was used to hydrate the wound, and the wound was found to be watertight. The pupil was noted to be round. DISPOSITION: The patient was taken to the recovery room and discharged to home in stable condition. The patient was instructed to call me or go to the emergency department with any sudden change, including dramatic loss of vision, severe pain in the eye or eyebrow region, nausea, or vomiting. The patient will follow up in the clinic tomorrow morning.
== END 2023-03-24 11:03 | disposition home or self-care (01) ==
PROVIDERS: PCP Family Medicine; Visit Provider Ophthalmology
PROC: (CPT 66984; principal; 2023-03-24 08:15)
DX: H25.12 Age-related nuclear cataract, left eye (principal)
CPT/HCPCS: 66984; 00142; 99100; A9270; J2250; J3010; V2632

== ENCOUNTER 2023-06-30 11:00 | Day surgery (SDC) | payer MEDICARE, SELFPAY ==
--- OUTSIDE RECORDS SUMMARY | 2023-06-30 11:03 | XMS_ITS | Clinical Summary ---
Author Name Unknown Organization [facility] [facility] Address [place], [place] [address] Care Team Providers Care Signal Intelligence Analyst Name Role Phone VotelNiall MD Primary Care Provider + Allergies Active Allergy Reactions Criticality Noted Date Comments Murray Inhibitors Cough Low 07/12/2019 Dry cough The cough caused her to stop lisinopril Sulfamethoxazole-Trimethop rim Rash Medium 12/13/2019 Doxycycline Diarrhea Medium 03/29/2019 Penicillins Anaphylaxis High 12/01/2015 Sulfa (Sulfonamide Antibiotics) *Unknown 11/14/2020 Medications Medication Sig Dispensed Refills Start Date End Date Status aspirin (ECOTRIN) 81 mg enteric coated tablet Take 1 Tablet (81 mg) by mouth once daily with a meal. 0 04/01/2021 Active b complex vitamins (VITAMIN B COMPLEX) capsule Take 1 Capsule by mouth once daily. 0 04/01/2021 Active albuterol HFA (PRO-AIR; VENTOLIN; PROVENTIL) 90 mcg/actuation inhalerIndications:Mil d persistent asthma without complication Inhale 1-2 Puffs by mouth every 4 hours if needed for Shortness of Breath 1st choice or Wheezing 2nd choice. 1 Each 2 07/07/2021 Active atorvastatin (LIPITOR) 40 mg tabletIndications:Athe rosclerosis of cata[place] coronary artery of [place]ata[place] heart with angina pectoris (HC) Take 1 Tablet (40 mg) by mouth at bedtime. 90 Tablet 3 11/18/2022 Active mometasone-formoterol (DULERA) 200-5 mcg/actuation inhalerIndications:Mod erate persistent asthma, unspecified whether complicated Inhale 2 Puffs by mouth two times daily. 39 g 3 11/18/2022 Active pantoprazole (PROTONIX) 20 mg tabletIndications:Ingot Weigher garima GERD Take 1 Tablet (20 mg) by mouth once daily. 90 Tablet 3 11/18/2022 Active levothyroxine (SYNTHROID) 100 mcg tabletIndications:Hypo thyroidism, unspecified type Take 1 Tablet (100 mcg) by mouth once daily. 90 Tablet 3 11/18/2022 Active fluticasone (50 mcg per actuation) nasal solution (FLONASE) Inhale 1 [place] into affected nostril(s) once daily if needed for Rhinitis. 0 Active escitalopram oxalate (LEXAPRO) 10 mg tablet Take 10 mg by mouth once daily. 0 02/11/2023 Active losartan (COZAAR) 25 mg tabletIndications:Tako tsubo cardiomyopathy Take 1 Tablet (25 mg) by mouth once daily. 90 Tablet 3 02/25/2023 Active metoprolol succinate (Toprol XL) 25 mg Sustained-Release tabletIndications:HTN (hypertension) Take 1 Tablet (25 mg) by mouth once daily. 90 Tablet 3 02/25/2023 Active cholecalciferol, Vitamin D3, 2,000 unit tabletIndications:[facility] care Take 1 Tablet (2,000 units) by mouth once daily. 0 03/08/2023 Active Active Problems Problem Noted Date Diagnosed Date Myocardial infarction 01/29/2023 NSTEMI (non-ST elevated myocardial infarction) 0 01/14/2023 Takotsubo cardiomyopathy 01/14/2023 HTN (hypertension) 01/14/2023 Onychomycosis 01/14/2023 Asthma 01/14/2023 GERD (gastroesophageal reflux disease) Nonischemic cardiomyopathy 07/18/2020 Last Assessment & Plan: Sress Cardiomyopathy and this has resolved. Atherosclerosis of cata[place]ba co ronary artery of cata[place] heart with angina pectoris 07/18/2020 Encounters Date Type Department Care Team Description 06/15/2023 9:35 AM MANAGER BANKING Preop Visit [facility] [address] [place] [address] Votel, Niall Solis MD Preoperative Exam (06/30/23, [place], rt eye cataract) 06/15/2023 Travel 04/05/2023 10:30 AM CDT Office Visit [facility] [address] [place] [address] Rebecca Velázquez, PhD, Mental Health Intake 04/05/2023 Travel from Last 3 Months Immunizations Name Administration Dates Next Due Amb Influenza, Inactivated A IIV4 (Age 65+ Years) Preserv Free 03/19/2020 COVID-19 vaccine (Moderna 100mcg/0.5mL) PF, MDV 05/20/2021,08/27/2020,07/30/2020 Influenza Virus, Unspecified 04/26/2013,03/15/20 12,02/23/2011 Influenza, High-dose Inactivated 019,03/17/2018,03/19/2017,2015,04/08/2015,02/27/2014 Influenza, High-dose Quadriv alent Inactivated 04/27/2022 Influenza, IIV3 (Age 6-35 mos) 05/02/2008,2006 Influenza, IIV3 (Age >=3 years) 04/26/2013,03/15,02/23/2011 Influenza, Inactivated AIIV4 (Age 65+ Years) Preserv Free 03/01/2023,04/09/2021 Pneumococcal Poly,23-Valent (Pneumovax) 07/13/2013,04/20/2005 Pneumococcal conj 13-Valent (Prevnar 13) 05/02/2015 TD, UNSPECIFIED 08/16/2002 Td (Age >=7 Years) 04/20/2005,08/16/2002 Td, Preservative Free (age > = 7 Years) 04/20/2005 Tdap 07/13/2013 Zoster (Shingrix-RZV, recombinant) 12/29/2018 Zoster (Zostavax-ZVL, live) 09/22/2011 Family History Medical History Relation Name Comments Other Father COPD Cancer-breast Maternal Aunt Heart Disease Mother Cancer-breast Other Maternal 1st C ousin Alzheimer's disease Sister Jolene Cancer-breast Sister Jolene Cancer-ovarian No Family History Relation Name Status Comments Brother Aleksandar Alive Father Maternal Aunt Mother Other Sister Jolene Alive Social History Tobacco Use Types Packs/Day Years Used Date Smoking Tobacco: Never Passive Smoke Exposure: Never Smokeless Tobacco: Never Tobacco Cessation:Counseling Given: Yes Alcohol Use Standard Drinks/Week Comments Yes 0 (1 standard drink = 0.6 oz pur e alcohol) occ PHQ-2 Answer Date Recorded PHQ-2 TOTAL SCORE 0 11/18/2022 Social Connections Answer Date Recorded Frequency of Communication with Friends and Fami ly 0 01/29/2023 Financial Resource Strain Answer Date R ecorded Difficulty of Paying Living Expenses 3 01/29/2023 Difficulty of Paying Living Expenses Not on file 01/29/2023 Food Insecurity Answer Date Recorded Worried About Running Out of Food in the Last Ye ar 1 01/29/2023 Transportation Needs Answer Date Record ed Lack of Transportation (Medical) 1 01/29/2023 Housing Stability Answer Date Recorded Unable to Pay for Housing in the Last Year 1 01/29/2023 Sex and Gender Information Value Date Recorded Sex Assigned at Not on file Gender Identity Not on file Sexual Orientation Not on file Obstetrics History Last Filed Vital Signs Vital Sign Reading Time Taken Comments Blood Pressure 124/74 06/15/2023 9:38 AM MANAGER BANKING Pulse 54 06/15/2023 9:38 AM MANAGER BANKING Temperature 36.8 ??C (98.3 ??F) 06/15/2023 9:38 AM CS T Respiratory Rate 16 02/28/2023 1:34 PM CDT Oxygen Saturation 95% 06/15/2023 9:38 AM MANAGER BANKING Inhaled Oxygen Concentration - - Weight 86.2 kg (190 lb) 06/15/2023 9:38 AM MANAGER BANKING Height 173 cm (5' 8.1) 06/15/2023 9:38 AM MANAGER BANKING Body Mass Index 28.8 06/15/2023 9:38 AM MANAGER BANKING Plan of Treatment Health Maintenance Due Date Last Done Comments Hepatitis C screening for ag e 18-79 1963 Zoster (shingles) series for age 50+ (3 of 3) 02/23/2019 12/29/2018, 09/22/2011 COVID-19 vaccine series ( season) 2023 05/20/2021, 08/27/2020, 07/30/2020 Tetanus booster 07/13/2023 07/13/2013, 1112/2004, 04/20/2005, Additional history exists Medicare Wellness for age 65+ 11/18/2023, 09/09/2021, 07/18/2020 Depression screening for age 12+ 11/21/2023 11/20/2022, 11/18/2022, 09/09/2021, Additional history exists BMI (ht and wt on same day) for age 18+ 06/15/2024 06/15/2023, 03/10/2023, 01/29/2023, Additional history exists Tdap Completed 07/13/2013 Pneumococcal series for age 65+ Completed 05/02/2015, 07/13/2013, 04/20/2005 DEXA/DXA scan for age 65+ Completed 07/25/2020 Influenza for age 65+ Completed 03/01/2023 , 04/27/2022, 04/09/2021, Additional history exists Advance Directives Latest Code Status on File Code Status Date Activated Date Inactivated Comments Full Code 01/14/2023 6:47 PM 01/15/2023 8:00 PM Question Answer Comments Code Status Discussion: Reviewed Preferences Care Teams Signal Intelligence Analyst Relationship Specialty Start Date End Date Votel, Niall Solis MD [address] [place] [address] PCP - General Family Practice 04/01/21
[2023-06-30] MEDS: TETRACAINE 0.5% OPHTH 1 DROP EYE-RIGHT ×2 (11:12→11:20)
[2023-06-30 11:22] VITALS: BMI 28.8
[2023-06-30 11:27] VITALS: BP 137/69; PULSE 51; RESP 20; TEMP 36.4; O2SAT 96
[2023-06-30] MEDS: KETOROLAC OPHTH 0.5% 1 DROP EYE-RIGHT ×2 (11:27→11:28)
[2023-06-30] MEDS: SODIUM CHLORIDE 0.9 % (FLUSH) 10 ML SYRINGE IVF (11:30)
--- NOTE | 2023-06-30 11:44 | SUR.PREOP ---
The eye drops brought by the patient (Ketorolac and Prednisolone) are examined and I have determined they are labeled by the patient's pharmacy for this patient as prescribed by the surgeon. The bottles are intact, recently obtained and appear to be correct.
[2023-06-30] MEDS: TETRACAINE 0.5% OPHTH 2 DROP EYE-RIGHT (12:27)
[2023-06-30] MEDS: BALANCED SALT IRRIG SOLN 15 ML EYE-RIGHT (12:31)
--- NOTE | 2023-06-30 12:34 | W.ANESCHARGE ---
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
--- NOTE | 2023-06-30 12:51 | P.OPTPRC_ITS ---
Procedure Note Date of procedure: 06/30/23 Will [facility] bill your pro fee for this procedure?: Yes Procedure Description: SURGEON: Shannen Santos MD PREOPERATIVE DIAGNOSIS: Nuclear sclerotic cataract, right eye. POSTOPERATIVE DIAGNOSIS: Nuclear sclerotic cataract, right eye. NAME OF OPERATION: Phacoemulsification of cataract with posterior chamber intraocular lens implantation in the right eye. ANESTHESIA: Topical. ESTIMATED BLOOD LOSS: Less than 2 cc. COMPLICATIONS: None. PATHOLOGY SPECIMEN: None. INDICATIONS: See consult note for details. The risks, benefits and alternatives of the procedure were explained to the patient, who elected to proceed and signed informed consent to do so. PROCEDURE: The patient was brought to the pre-holding area where the right eye was identified as the operative eye. I placed my initials above this eye. The patient received eye drops consisting of 0.5% tetracaine, 1% tropicamide, 10% phenylephrine, and 0.5% ketorolac. The patient was then brought to the operating room where the right eye was again identified as the operative eye. The eye was prepped with Betadine and draped in the usual sterile ophthalmic fashion. A #15 super-sharp blade was used to create a paracentesis site. 1% non-preserved intracameral lidocaine was injected into the anterior chamber. Endocoat was injected into the anterior chamber. A 2.4 mm keratome was used to create a three-plane self-sealing incision 1 mm anterior to the temporal limbus. A cystotome was used to create an anterior capsular leaflet. The Utrata forceps were used to extend this to form a continuous curvilinear capsulorrhexis. Hydrodissection was performed. The cataract was removed with phacoemulsification using the [id number] technique. The irrigation and aspiration tip was used to remove the remaining cortex. Healon was injected into the capsular bag. An [place] ZCB00 intraocular lens of 17.5 diopters was injected into the capsular bag. The irrigation and aspiration tip was used to remove the remaining viscoelastic. Balanced salt solution on a cannula was used to hydrate the wound, and the wound was found to be watertight. The pupil was noted to be round. DISPOSITION: The patient was taken to the recovery room and discharged to home in stable condition. The patient was instructed to call me or go to the emergency department with any sudden change, including dramatic loss of vision, severe pain in the eye or eyebrow region, nausea, or vomiting. The patient will follow up in the clinic tomorrow morning.
[2023-06-30 12:52] VITALS: BP 155/78; PULSE 51; RESP 16; TEMP 36.4; O2SAT 97
--- NOTE | 2023-06-30 13:33 | W.ANESCHARGE ---
Anesthesia Charges Start Date/Time Anesthesia Start Date: 06/30/23 Anesthesia Start Time: 12:23 Stop Date/Time Anesthesia Stop Date: 06/30/23 Anesthesia Stop Time: 12:55 Summary Extremes of Age - Over 70 or under 1: MDA
== END 2023-06-30 13:24 | disposition home or self-care (01) ==
LOC: OR 11:01
PROVIDERS: PCP Family Medicine; Visit Provider Ophthalmology
PROC: (CPT 66984; principal; 2023-06-30 11:15)
DX: H25.11 Age-related nuclear cataract, right eye (principal)
CPT/HCPCS: 66984; 00142; 99100; A9270; J2250; J3010; V2632

== ENCOUNTER 2023-10-13 07:36 | Emergency (ER) | payer MEDICARE, SELFPAY ==
[2023-10-13 07:40] VITALS: BP 177/80; PULSE 60; RESP 18; TEMP 36.6; O2SAT 95; BMI 27.3
--- OUTSIDE RECORDS SUMMARY | 2023-10-13 07:42 | XMS_ITS | Clinical Summary ---
Author Name Unknown Organization [facility] Address [place], [place] [address] Care Team Providers Care Last Puller Name Role Phone Votel, Niall Solis MD Primary Care Provider + Allergies Active [...] by mouth once daily. 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 90 Tablet 3 11/18/2022 Active mometasone-formoterol (DULERA) 200-5 mcg/actuation inhalerIndications:Mo derate persistent asthma, unspecified whether complicated Inhale 2 Puffs by mouth two times daily. 39 g 3 11/18/2022 Active pantoprazole (PROTONIX) 20 mg tabletIndications:Chr onic GERD Take 1 Tablet (20 mg) by mouth once daily. 90 Tablet 3 11/18/2022 Active levothyroxine (SYNTHROID) 100 mcg tabletIndications:Hyp othyroidism, unspecified type Take 1 Tablet (100 mcg) by mouth once daily. 90 Tablet 3 11/18/2022 Active fluticasone (50 mcg per actuation) nasal solution (FLONASE) Inhale 1 Francis into affected nostril(s) once daily if needed for Rhinitis. Active escitalopram oxalate (LEXAPRO) 10 mg tablet Take 10 mg by mouth once daily. 02/11/2023 Active losartan (COZAAR) 25 mg tabletIndications:Bertin otsubo cardiomyopathy Take 1 Tablet (25 mg) by mouth once daily. 90 Tablet 3 02/25/2023 Active metoprolol succinate (Toprol XL) 25 mg Sustained-Release tabletIndications:HTN (hypertension) Take 1 Tablet (25 mg) by mouth once daily. 90 Tablet 3 02/25/2023 Active cholecalciferol, Vitamin D3, 2,000 unit tabletIndications:[facility] Take 1 Tablet (2,000 units) by mouth once daily. 0 03/08/2023 Active albuterol HFA (ProAir HFA) 90 mcg/actuation inhalerIndications:Mi ld persistent asthma without complication Inhale 1-2 puffs by mouth every 4 hours if needed for Shortness of Breath 1st choice or Wheezing 2nd choice 1 Each 09/11/2023 Active nitrofurantoin macrocrystals/monohyd rate (MACROBID) 100 mg capsuleIndications:Co mplicated UTI (urinary tract infection) Take 1 Capsule (100 mg) by mouth two times daily for 7 days. 14 Capsule 10/11/2023 10/18/2023 Active Active Problems Problem Noted Date Diagnosed Date Myocardial infarction 01/29/2023 NSTEMI (non-ST elevated myocardial infarction) 0 01/14/2023 Takotsubo cardiomyopathy 01/14/2023 HTN (hypertension) 01/14/2023 Onychomycosis 01/14/2023 Asthma 01/14/2023 GERD (gastroesophageal reflux disease) 3 Nonischemic cardiomyopathy 07/18/2020 Last Assessment & Plan: Sress Cardiomyopathy and this has resolved. 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 [place] [address] Heidy Ruano PA Urinary Problem 10/11/2023 Travel 10/10/2023 Nurse Triage [facility] [address] [place] [address] Niall Long MD Urinary Problem 09/10/2023 Refill [facility] [address] [place] [address] Niall Long MD Refill Request (Proair Hfa) from Last 3 Months Immunizations Name Administration Dates Next Due Amb Influenza, Inactivated A IIV4 (Age 65+ Years) Preserv Free 03/19/2020 COVID-19 vaccine (Moderna 100mcg/0.5mL) SANYA MIRANDA 05/20/2021,08/27/2020,07/30/2020 Influenza Virus, Unspecified 04/26/2013,03/15/20 12,02/23/2011 Influenza, [...] Sign Reading Time Taken Comments Blood Pressure 137/78 10/11/2023 10:29 AM CDT Pulse 58 10/11/2023 10:29 AM CDT Temperature 36.4 ??C (97.6 ??F) 10/11/2023 10:29 AM C DT Respiratory Rate 16 02/28/2023 1:34 PM CDT Oxygen Saturation 95% 10/11/2023 10:29 AM CDT Inhaled Oxygen Concentration - - Weight 88.7 kg (195 lb 9.6 oz) 10/11/2023 10:29 AM CDT Height 173 cm (5' 8.1) 06/15/2023 9:38 AM GRINDER SETUP OPERATOR Body Mass Index 29.65 06/15/2023 9:38 AM GRINDER SETUP OPERATOR Plan of Treatment Upcoming Encounters Date Type Department Care Team (Late st Contact Info) Description 11/09/2023 3:20 PM CDT Office Visit [facility] [address] [place] [address] Niall Long MD [address] [place] [address] Health Maintenance Due Date Last Done Comments Hepatitis C screening for ag e 18-79 1963 Zoster (shingles) series for age 50+ (3 of 3) 02/23/2019 12/29/2018, 09/22/2011 COVID-19 vaccine series (2022- season) 2023 05/20/2021, 08/27/2020, 07/30/2020 Tetanus booster 07/13/2023 07/13/2013, 12/2004, 04/20/2005, Additional history exists Medicare Wellness for age 65+ 11/19/2023, 09/09/2021, 07/18/2020 Depression screening for age 12+ 11/21/2023 11/20/2022, 11/18/2022, 09/09/2021, Additional history exists Influenza for age 65+ 02/13/2024 03/01/2023 , 04/27/2022, 04/09/2021, Additional history exists BMI (ht and wt on same day) for age 18+ 06/15/2024 06/15/2023, 03/10/2023, 01/29/2023, Additional history exists Tdap Completed 07/13/2013 Pneumococcal series for age 65+ Completed 05/02/2015, 07/13/2013, 04/20/2005 DEXA/DXA scan for age 65+ Completed 07/25/2020 Procedures Procedure Name Priority Date/Time Associated Diagnosis Comments URINE CULTURE Add On 10/11/2023 11:02 AM CDT Lower urinary tract symptoms (LUTS) URINALYSIS MICROSCOPIC Routine 10/11/2023 11:02 AM CDT Lower urinary tract symptoms (LUTS) UA W/ SEDIMENT EXAM REFLEXED PER CRITERIA Routine 10/11/2023 11:02 AM CDT Lower urinary tract symptoms (LUTS) XR DXA BONE DENSITY 2 SITES AXIAL Routine 07/25/2020 10:35 AM GRINDER SETUP OPERATOR Menopause from Last 3 Months or Most Recently Relevant to Health Maintenance Results * (ABNORMAL) URINALYSIS MICROSCOPIC (10/11/2023 11:02 AM CDT) RBC 6-10(A) 0-2, None Seen /HPF 10/11/2023 11:09 AM CDT [facility] WBC >100(A) 0-2, 3-5, None Seen /HPF 10/11/2023 11:09 AM CDT [facility] BACTERIA Many(A) None Seen, Rare, Few Bacteria/ HPF 10/11/2023 11:09 AM CDT [facility] EPITHELIAL CELLS Moderate(A ) None Seen, Few Epi/HPF 10/11/2023 11:09 AM CDT [facility] Urine URINE SPECIMEN / Unknown Non-Blood / Unknown 10/11/2023 11:02 AM CDT 10/11/2023 11:02 AM CDT Heidy ELIZONDO URINE [facility] [address] [place] [address], * (ABNORMAL) URINE CULTURE (10/11/2023 11:02 AM CDT) CULTURE RESULT(A) 10/13/2023 6:48 AM CDT [facility] CULTURE >100,000 CFU/mL Citrobacter koseri 10/13/2023 6:48 AM CDT [facility] Urine URINE SPECIMEN / Unknown Non-Blood / Unknown 10/11/2023 11:02 AM CDT 10/11/2023 11:02 AM CDT Narrative Organism Antibiotic Method Susceptibility Citrobacter koseri TRIMETHOPRIM/SULF <=1/19: S Citrobacter koseri GENTAMICIN <=1: S Citrobacter koseri CEFTRIAXONE <=1: S Citrobacter koseri CEFTAZIDIME <=1: S Citrobacter koseri LEVOFLOXACIN <=0.12: S Citrobacter koseri CIPROFLOXACIN <=0.25: S Citrobacter koseri PIPERACILLIN/TAZO <=4: S Citrobacter koseri CEFEPIME <=1: S Citrobacter koseri TOBRAMYCIN <=1: S Citrobacter koseri MEROPENEM <=0.25: S Citrobacter koseri NITROFURANTOIN <=16: S Heidy ELIZONDO MICROBIOLOGY [facility] [address] [place] [id number], * (ABNORMAL) UA W/ SEDIMENT EXAM REFLEXED PER CRITERIA (10/11/2023 11:02 AM CDT) COLOR Yellow Yellow Color 10/11/2023 11:09 AM CDT [facility] CLARITY Clear Clear Clarity 10/11/2023 11:09 AM CDT [facility] SPECIFIC GRAVITY,URINE 1.010 1.010, 1.015, 1.020, 1.025 10/11/2023 11:09 AM CDT [facility] PH,URINE 6.0 6.0, 7.0, 8.0, 5.5, 6.5, 7.5, 8.5 10/11/2023 11:09 AM CDT [facility] UROBILINOGEN, QUALITATIVE Normal Normal EU/dl 10/11/2023 11:09 AM CDT [facility] PROTEIN, URINE Negative Negative mg/dL 10/11/2023 11:09 AM CDT [facility] GLUCOSE, URINE Negative Negative mg/dL 10/11/2023 11:09 AM CDT [facility] KETONES,URINE Negative Negative mg/dL 10/11/2023 11:09 AM CDT [facility] BILIRUBIN,URI NE Negative Negative 10/11/2023 11:09 AM CDT [facility] OCCULT BLOOD,URINE Moderate(A) Negative 10/11/2023 11:09 AM CDT [facility] NITRITE Negative Negative 10/11/2023 11:09 AM CDT [facility] LEUKOCYTE ESTERASE Moderate(A) Negative 10/11/2023 11:09 AM CDT [facility] Urine URINE SPECIMEN / Unknown Non-Blood / Unknown 10/11/2023 11:02 AM CDT 10/11/2023 11:02 AM CDT Heidy ELIZONDO URINE [facility] [address] [place] [address], * XR DXA BONE DENSITY 2 SITES AXIAL (07/25/2020 10:35 AM GRINDER SETUP OPERATOR) Anatomical Region Laterality Modality Spine, HIPS, HIPL, HIPR Other Impressions 07/31/2020 8:57 AM GRINDER SETUP OPERATOR Normal bone density. RECOMMENDATIONS: - The National Osteoporosis Foundation recommends pharmacologic treatment for patients with T-scores of -2.5 or less, patients with prior history of fragility fractures, or patients with 10-year probability of greater than 3% at hips or greater than 20% of suffering major osteoporotic fractures. - Recommend continued optimization of calcium and vitamin D intake through dietary means and/or supplementation and regular exercise. Repeat scan recommended in 5-7 years. Janie Bryant PA-C Narrative 07/31/2020 8:57 AM GRINDER SETUP OPERATOR XR DXA Bone Mineral Density (BMD) EXAM LOCATION: [address] [address] PATIENT NAME: Carissa Bradley DATE OF : 1945 EXAM DATE: 07/25/2020 REQUESTING PROVIDER: Niall Long MD GENDER AT : female HEIGHT: 5' 8.31 (07/18/2020) WEIGHT: ??189 lb 12.8 oz (07/18/2020) MENOPAUSAL STATUS: Postmenopausal RACE/ETHNICITY: White RISK FACTORS: RACE CURRENT MEDICATION FOR BONE LOSS: NONE INDICATION: SCREENING FOR OSTEOPOROSIS COMPARISON DATE(S): None DXA scans are compared to prior studies for a patient only when the two (or more) studies were performed on the same scanner. It is not possible to compare data generated on one scanner to data from another because there are not standards in DXA equipment. This applies even if the two scanners are made by the same professional driver. PROCEDURE: Dual-energy x-ray absorptiometry performed with routine technique. Reporting is completed in the form of a T-score. The T-score represents the standard deviation from peak bone mass based on young healthy adult. A Z-score is used for diagnosis in premenopausal women, and for men under the age of 50. FINDINGS: RESULT LUMBAR SPINE L1-L2 BMD: 1.127 g/cm2 T-Score: -0.4 Z-Score: 0.7 Comparison to baseline scan: ??None Comparison to most recent scan: ??None RESULT FEMORAL NECK Bilateral Total Femoral Neck BMD: 1.015 g/cm2 T-Score: -0.2 Z-Score: 1.3 Comparison to baseline scan: ??None Comparison to most recent scan: ??None RESULT TOTAL HIP Bilateral Total Hip BMD: 1.002 g/cm2 T-Score: 0.0 Z-Score: 1.2 Comparison to baseline scan: ??None Comparison to most recent scan: ??None WHO criteria: Normal: T-score at or above -1 SD Osteopenia: T-score between -1.1 and -2.4 SD Osteoporosis: T-score at or below -2.5 SD FRAX RISK CALCULATION: N/A given normal BMD Niall Long MD DEXA from Last 3 Months or Most Recently Relevant to Health Maintenance Advance Directives * Full Code (Latest Code Status on File) Date Activated Date Inactivated Comments 01/14/2023 6:47 PM 01/15/2023 8:00 PM Question Answer Comments Code Status Discussion: Reviewed Preferences Care Teams Last Puller Relationship Specialty Start Date End Date Votel, Niall Solis MD [address] [place] [address] PCP - General Family Practice 04/01/21
--- NOTE | 2023-10-13 07:55 | XR_ITS ---
Patient: SANA HERNANDEZ Facility:?[facility] Patient ID:?[id number] Site Patient ID:?[id number]. Site :?1945 Study:?XRay-Knee Right 3 view-10/13/2023 8:53:40 AM Ordering Physician:Nikia Mendoza Final Report: Indication: Knee pain Technique: A total of three-view of the right knee were acquired. Comparison: None Findings: Bones: Bone mineral density is decreased. No lytic or blastic lesion. Joint spaces: Significant osteoarthritis most affecting the medial compartment where there is near bone to bone contact. No dislocation. Probable small joint effusion. Soft tissues: Unremarkable. Impression: Significant osteoarthritis most affecting the medial compartment. Small joint effusion. No acute fracture, dislocation or destructive process. Dictated by Yasir Patterson MD @ 10/13/2023 8:56:31 AM ----- ADDENDUM ----- Correction: Osteoarthritis most affects the lateral compartment. Dictated by Yasir Patterson MD @ Oct 13 2023 8:59AM Signed by:?Yasir Patterson MD @10/13/2023 8:56:31 AM (Electronic Signature)
--- NOTE | 2023-10-13 07:55 | XR_ITS ---
Patient: SANA HERNANDEZ Facility:?[facility] Patient ID:?[id number] Site Patient ID:?[id number]. Site :?1945 Study:?XRay-Extremity Right tib/fib 2 view-10/13/2023 8:53:39 AM Ordering Physician:Nikia Mendoza Final Report: Indication: Pain Technique: A total of two views of the right tibia and fibula were acquired. Comparison: None Findings: Bones: Alignment is normal. No fractures or bone lesions. Joint spaces: Significant arthritic changes at the incidentally visualized knee joint. Soft tissues: Unremarkable. Impression: Osteoarthritis about the knee joint. No acute fracture, dislocation or destructive process. Dictated by Yasir Patterson MD @ 10/13/2023 8:58:12 AM Signed by:?Yasir Patterson MD @10/13/2023 8:58:12 AM (Electronic Signature)
--- NOTE | 2023-10-13 07:56 | ED.GENADULT ---
HPI - General Adult General Chief complaint: Extremity Pain/Injury, Lower Stated complaint: pain in R leg Time Seen by Provider: 10/13/23 07:38 History of Present Illness HPI narrative: Patient is a 78-year-old female that fell a couple weeks ago but injured her left leg, last night into today she has had some pain in her lateral calf on the right in into her knee. It is definitely worse when she bends her knee or flexes her knee she is able to walk. But she has trouble with bending or flexing as mention. Is simply motion related. She has no swelling in the leg or knee. She has had no history of bleeding or clotting problems. 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 She is allergic to penicillin, Bactrim, RIAN-inhibitor doxycycline and sulfa. No shortness of breath or chest pain Related Data Home Medications Medication Instructions Recorded Confirmed albuterol sulfate 90 mcg/actuation 2 inh inhalation Q4H PRN 05/15/22 03/24/23 aerosol inhaler atorvastatin 40 mg tablet 40 mg PO HS 05/15/22 03/24/23 levothyroxine 100 mcg tablet 100 mcg PO DAILY 05/15/22 03/24/23 losartan 50 mg tablet 25 mg PO DAILY 05/15/22 03/24/23 mometasone-formoterol HFA 200 2 puff inhalation BID 05/15/22 03/24/23 mcg-5 mcg/actuation aerosol inhaler (Dulera) pantoprazole 20 mg tablet,delayed 20 mg PO DAILY 05/15/22 03/24/23 release aspirin 81 mg capsule 81 mg PO DAILY 01/17/23 03/24/23 metoprolol succinate 25 mg 25 mg PO DAILY 01/17/23 03/24/23 tablet,extended release 24 hr cholecalciferol (vitamin D3) 25 25 mcg PO DAILY 01/18/23 03/24/23 mcg (1,000 unit) capsule cyanocobalamin (vitamin B-12) 500 500 mcg PO DAILY 01/18/23 03/24/23 mcg tablet multivitamin (Daily Multi-Vitamin 1 tab PO DAILY 01/18/23 03/24/23 tablet) vitamin B complex (B 1 tab PO DAILY 01/18/23 03/24/23 Complex-Vitamin B12 tablet) escitalopram oxalate 10 mg tablet 10 mg PO DAILY 03/23/23 03/24/23 fluticasone propionate 50 1 spray intranasal DAILY PRN 03/23/23 03/24/23 mcg/actuation nasal spray,suspension (Flonase Allergy Relief) Macrobid 10/13/23 Previous Rx's Medication Instructions Recorded lorazepam 0.5 mg tablet 0.5 - 1 mg (1 - 2 x 0.5 mg) PO Q6H 01/18/23 PRN Anxiety #30 tabs hydrocodone 5 mg-acetaminophen 325 1 tab PO Q8H PRN pain #10 tabs 10/13/23 mg tablet prednisone 20 mg tablet 20 mg PO BID #6 tabs 10/13/23 Allergies Allergy/AdvReac Type Severity Reaction Status Date / Time sulfamethoxazole Allergy Severe Rash Verified 03/24/23 08:13 [From Bactrim] trimethoprim [From Bactrim] Allergy Severe Rash Verified 03/24/23 08:13 Sulfa (Sulfonamide Allergy Unknown Verified 03/24/23 08:13 Antibiotics) Penicillins Allergy Anaphylaxis Verified 03/24/23 08:13 RIAN Inhibitors AdvReac Cough Verified 03/24/23 08:13 doxycycline AdvReac Diarrhea Verified 03/24/23 08:13 Review of Systems Status of ROS: Reports: 6 or more systems reviewed and unremarkable except as noted in History and below [facility] Medical History Onychomycosis ?B35.1 - Tinea unguium (ICD-10) Non-ST elevated myocardial infarction (non-STEMI) (~01/14/23) ?I21.4 - Non-ST elevation (NSTEMI) myocardial infarction (ICD-10) Hypothyroidism ?E03.9 - Hypothyroidism, unspecified (ICD-10) GERD (gastroesophageal reflux disease) ?K21.9 - Gastro-esophageal reflux disease without esophagitis (ICD-10) Asthma ?J45.909 - Unspecified asthma, uncomplicated (ICD-10) Hyperlipidemia ?E78.5 - Hyperlipidemia, unspecified (ICD-10) Hypertension ?I10 - Essential (primary) hypertension (ICD-10) Takotsubo cardiomyopathy (~2019) ?I51.81 - Takotsubo syndrome (ICD-10) Surgical History Hx of colonoscopy ?Z98.890 - Other specified postprocedural states (ICD-10) Family History Sister Alzheimer's dementia Breast cancer Aunt Breast cancer Family/Other Breast cancer Mother Cardiovascular disease Father COPD (chronic obstructive pulmonary disease) Social History Narrative: . Lives in a house with her . Denies tobacco, EtOH, recreational drug use. What is your current living situation?: I presently have a place to live Problems where you live: no known problems Problems where you live details: NA In the past 12 months, utilities in danger of being shut off: no In past 12 months, lack of transportation kept you from medical appts, meetings, work, or getting things needed for daily living: no In the past 12 mos, have been you worried that your food would run out before you had money to buy more?: never true In the past 12 mos, the food you bought just didn't last and you didn't have money to buy more?: never true Smoking Status: Never smoker How often do you have a drink containing alcohol: never AUDIT-C Alcohol total score: 0 Non-prescribed substance use: denies use Caffeine: Yes (coffee) How often does anyone, including family, friends and others, physically hurt you: never How often does anyone, including family, friends and others, insult or talk down to you: never How often does anyone, including family, friends and others, threaten you with harm: never How often does anyone, including family, friends and others, scream or curse at you: never Are you using contraception or practicing any form of control: No service: No Exam Narrative: Exam Narrative: Objective: Vital signs show slightly elevated blood pressure, afebrile The patient is alert and oriented no distress Right knee shows no effusion, limited range of motion of flexion extension secondary to discomfort about the knee in the posterior lateral component of the knee negative anterior posterior drawer, she also has pain and complaint in the right lateral calf, there is no swelling no palpable cords, seems more related to her knee motion the causes the pain in her lateral calf. No palpable bony step-off or crepitus. Neurologic is nonfocal upper extremities, the patient has no back pain. Const: Vital Signs, click to edit/add: Vital Signs - 24 hr 10/13/23 07:40 Temperature 97.8 F Pulse Rate [Pulse Oximeter] 60 Respiratory Rate 18 Blood Pressure [Ri ght Upper Arm] 177/80 H Pulse Oximetry 95 Oxygen Delivery Me thod Room Air Course Vital Signs Vital signs: Initial Vital Signs Temperature 97.8 F 10/13/23 07:40 Temperature Source Temporal Artery Scan 10/13/23 07:40 Pulse Rate 60 10/13/23 07:40 Respiratory Rate 18 10/13/23 07:40 Blood Pressure 177/80 H 10/13/23 07:40 Blood Pressure Mean 112 H 10/13/23 07:40 Blood Pressure Position Supine 10/13/23 07:40 Pulse Oximetry 95 10/13/23 07:40 Oxygen Delivery Method Room Air 10/13/23 07:40 Vital Signs Temperature 97.8 F 10/13/23 07:40 Pulse Rate 60 10/13/23 07:40 Respiratory Rate 18 10/13/23 07:40 Blood Pressure 177/80 H 10/13/23 07:40 Pulse Oximetry 95 10/13/23 07:40 Oxygen Delivery Method Room Air 10/13/23 07:40 Temperature 97.8 F 10/13/23 07:40 Pulse Rate 60 10/13/23 07:40 Respiratory Rate 18 10/13/23 07:40 Blood Pressure 177/80 H 10/13/23 07:40 Pulse Oximetry 95 10/13/23 07:40 Oxygen Delivery Method Room Air 10/13/23 07:40 Medical Decision Making [facility] Narrative Medical decision making narrative: 78-year-old female with right knee pain and upper leg pain laterally, this does seem to be motion related consistent with more of a primary knee problem. She denies any radicular component to her symptoms and has no back pain. She did fall couple of weeks ago and certainly could have injured a meniscus in her right knee. I think at this time would be matta take an x-ray of her knee and the tib-fib on the right. She has no swelling or clot like symptoms. She is ambulatory I think a knee immobilizer be helpful perhaps some pain medicine for a couple of days and even some prednisone for a couple of days depending on her findings on x-ray please see addendum. Addendum 9:11 a.m. the patient's x-rays of her knee and leg show no fracture, she does have significant degenerative joint disease in her knee. She does have motion pain with her knee in flexion extension I think she might have a little meniscal tear or just inflammation of her arthritic joint. She does not have any swelling or lower extremity no calf pain posteriorly no palpable venous cords negative Homans sign. I do not think she has a blood clot at this time but needs to watch her leg for any swelling or changes. I would recommend recheck within the next 5-7 days with her regular doctor, would use the knee immobilizer, continue her aspirin daily will give her 3 days of prednisone and some [place] as well as have her continue the ibuprofen she is using. She can use ice on the knee as well as using the knee immobilizer. Recheck with regular doctor in 5-7 days. Return to ED sooner changes or concerns. Discharge Plan Discharge Clinical Impression: Acute pain of right knee Patient Disposition: Home w/ Parent or Adult Condition: Stable Additional Instructions: Knee immobilizer, ice recommended on a regular basis, continue ibuprofen, will give you a pain medicine as well as some prednisone for a few days. Follow up with regular doctor in 5-7 days. Return to the ED sooner if problems or concerns, swelling in the leg, any changes. Activity Level: Light activity Discharge Diet: Regular Prescriptions: New prednisone 20 mg tablet 20 mg PO BID Qty: 6 0RF hydrocodone-acetaminophen 5-325 mg tablet 1 tab PO Q8H PRN (Reason: pain) Qty: 10 0RF No Action losartan 50 mg tablet 25 mg PO DAILY levothyroxine 100 mcg tablet 100 mcg PO DAILY atorvastatin 40 mg tablet 40 mg PO HS pantoprazole 20 mg tablet,delayed release (DR/EC) 20 mg PO DAILY Dulera 200-5 mcg/actuation HFA aerosol inhaler 2 puff inhalation BID Patient Comments: albuterol sulfate 90 mcg/actuation HFA aerosol inhaler 2 inh inhalation Q4H PRN metoprolol succinate 25 mg tablet extended release 24 hr 25 mg PO DAILY aspirin 81 mg capsule 81 mg PO DAILY multivitamin [Daily Multi-Vitamin] Tablet 1 tab PO DAILY cyanocobalamin (vitamin B-12) 500 mcg tablet 500 mcg PO DAILY cholecalciferol (vitamin D3) 25 mcg (1,000 unit) capsule 25 mcg PO DAILY vitamin B complex [B Complex-Vitamin B12] Tablet 1 tab PO DAILY lorazepam 0.5 mg Tablet 0.5 - 1 mg PO Q6H PRN (Reason: Anxiety) Qty: 30 0RF Macrobid escitalopram oxalate 10 mg tablet 10 mg PO DAILY fluticasone propionate [Flonase Allergy Relief] 50 mcg/actuation spray,suspension 1 spray intranasal DAILY PRN Rx Instructions: administer into each nostril Follow Up/Referrals: Niall Long MD [Primary Care Provider] - Stand Alone Forms: [facility] Info Instructions
--- NOTE | 2023-10-13 09:15 | ED.GENADULT ---
HPI - General Adult General Chief complaint: Extremity Pain/Injury, Lower Stated complaint: pain in R leg Time Seen by Provider: 10/13/23 07:38 Related Data Home Medications Medication Instructions Recorded Confirmed albuterol sulfate 90 mcg/actuation 2 inh inhalation Q4H PRN 05/15/22 03/24/23 aerosol inhaler atorvastatin 40 mg tablet 40 mg PO HS 05/15/22 03/24/23 levothyroxine 100 mcg tablet 100 mcg PO DAILY 05/15/22 03/24/23 losartan 50 mg tablet 25 mg PO DAILY 05/15/22 03/24/23 mometasone-formoterol HFA 200 2 puff inhalation BID 05/15/22 03/24/23 mcg-5 mcg/actuation aerosol inhaler (Dulera) pantoprazole 20 mg tablet,delayed 20 mg PO DAILY 05/15/22 03/24/23 release aspirin 81 mg capsule 81 mg PO DAILY 01/17/23 03/24/23 metoprolol succinate 25 mg 25 mg PO DAILY 01/17/23 03/24/23 tablet,extended release 24 hr cholecalciferol (vitamin D3) 25 25 mcg PO DAILY 01/18/23 03/24/23 mcg (1,000 unit) capsule cyanocobalamin (vitamin B-12) 500 500 mcg PO DAILY 01/18/23 03/24/23 mcg tablet multivitamin (Daily Multi-Vitamin 1 tab PO DAILY 01/18/23 03/24/23 tablet) vitamin B complex (B 1 tab PO DAILY 01/18/23 03/24/23 Complex-Vitamin B12 tablet) escitalopram oxalate 10 mg tablet 10 mg PO DAILY 03/23/23 03/24/23 fluticasone propionate 50 1 spray intranasal DAILY PRN 03/23/23 03/24/23 mcg/actuation nasal spray,suspension (Flonase Allergy Relief) Macrobid 10/13/23 Previous Rx's Medication Instructions Recorded lorazepam 0.5 mg tablet 0.5 - 1 mg (1 - 2 x 0.5 mg) PO Q6H 01/18/23 PRN Anxiety #30 tabs hydrocodone 5 mg-acetaminophen 325 1 tab PO Q8H PRN pain #10 tabs 10/13/23 mg tablet prednisone 20 mg tablet 20 mg PO BID #6 tabs 10/13/23 Allergies Allergy/AdvReac Type Severity Reaction Status Date / Time sulfamethoxazole Allergy Severe Rash Verified 03/24/23 08:13 [From Bactrim] trimethoprim [From Bactrim] Allergy Severe Rash Verified 03/24/23 08:13 Sulfa (Sulfonamide Allergy Unknown Verified 03/24/23 08:13 Antibiotics) Penicillins Allergy Anaphylaxis Verified 03/24/23 08:13 RIAN Inhibitors AdvReac Cough Verified 03/24/23 08:13 doxycycline AdvReac Diarrhea Verified 03/24/23 08:13 PFSH PFSH Medical History Onychomycosis ?B35.1 - Tinea unguium (ICD-10) Non-ST elevated myocardial infarction (non-STEMI) (~01/14/23) ?I21.4 - Non-ST elevation (NSTEMI) myocardial infarction (ICD-10) Hypothyroidism ?E03.9 - Hypothyroidism, unspecified (ICD-10) GERD (gastroesophageal reflux disease) ?K21.9 - Gastro-esophageal reflux disease without esophagitis (ICD-10) Asthma ?J45.909 - Unspecified asthma, uncomplicated (ICD-10) Hyperlipidemia ?E78.5 - Hyperlipidemia, unspecified (ICD-10) Hypertension ?I10 - Essential (primary) hypertension (ICD-10) Takotsubo cardiomyopathy (~2018) ?I51.81 - Takotsubo syndrome (ICD-10) Surgical History Hx of colonoscopy ?Z98.890 - Other specified postprocedural states (ICD-10) Family History Sister Alzheimer's dementia Breast cancer Aunt Breast cancer Family/Other Breast cancer Mother Cardiovascular disease Father COPD (chronic obstructive pulmonary disease) Social History Narrative: . Lives in a house with her . Denies tobacco, EtOH, recreational drug use. What is your current living situation?: I presently have a place to live Problems where you live: no known problems Problems where you live details: NA In the past 12 months, utilities in danger of being shut off: no In past 12 months, lack of transportation kept you from medical appts, meetings, work, or getting things needed for daily living: no In the past 12 mos, have been you worried that your food would run out before you had money to buy more?: never true In the past 12 mos, the food you bought just didn't last and you didn't have money to buy more?: never true Smoking Status: Never smoker How often do you have a drink containing alcohol: never AUDIT-C Alcohol total score: 0 Non-prescribed substance use: denies use Caffeine: Yes (coffee) How often does anyone, including family, friends and others, physically hurt you: never How often does anyone, including family, friends and others, insult or talk down to you: never How often does anyone, including family, friends and others, threaten you with harm: never How often does anyone, including family, friends and others, scream or curse at you: never Are you using contraception or practicing any form of control: No service: No Exam Const: Vital Signs, click to edit/add: Vital Signs - 24 hr 10/13/23 07:40 Temperature 97.8 F Pulse Rate [Pulse Oximeter] 60 Respiratory Rate 18 Blood Pressure [Ri ght Upper Arm] 177/80 H Pulse Oximetry 95 Oxygen Delivery Me thod Room Air Course Vital Signs Vital signs: Initial Vital Signs Temperature 97.8 F 10/13/23 07:40 Temperature Source Temporal Artery Scan 10/13/23 07:40 Pulse Rate 60 10/13/23 07:40 Respiratory Rate 18 10/13/23 07:40 Blood Pressure 177/80 H 10/13/23 07:40 Blood Pressure Mean 112 H 10/13/23 07:40 Blood Pressure Position Supine 10/13/23 07:40 Pulse Oximetry 95 10/13/23 07:40 Oxygen Delivery Method Room Air 10/13/23 07:40 Vital Signs Temperature 97.8 F 10/13/23 07:40 Pulse Rate 60 10/13/23 07:40 Respiratory Rate 18 10/13/23 07:40 Blood Pressure 177/80 H 10/13/23 07:40 Pulse Oximetry 95 10/13/23 07:40 Oxygen Delivery Method Room Air 10/13/23 07:40 Temperature 97.8 F 10/13/23 07:40 Pulse Rate 60 10/13/23 07:40 Respiratory Rate 18 10/13/23 07:40 Blood Pressure 177/80 H 10/13/23 07:40 Pulse Oximetry 95 10/13/23 07:40 Oxygen Delivery Method Room Air 10/13/23 07:40 Medical Decision Making MDM Narrative Medical decision making narrative: Of note is we also discussed doing a Doppler scan of her leg, but given its more mechanical in related to her knee and she has no swelling in her leg or no calf swelling, was felt that this is more likely knee related. With mutual decision making we elected to simply follow up and I did discuss with her directly that I cannot 100% exclude a blood clot but clinically this does not seem like it would be the case, and she could certainly follow up with her changes or concerns she we elected to defer ultrasound at this time. Discharge Plan Discharge Clinical Impression: Acute pain of right knee Patient Disposition: Home w/ Parent or Adult Condition: Stable Additional Instructions: Knee immobilizer, ice recommended on a regular basis, continue ibuprofen, will give you a pain medicine as well as some prednisone for a few days. Follow up with regular doctor in 5-7 days. Return to the ED sooner if problems or concerns, swelling in the leg, any changes. Activity Level: Light activity Discharge Diet: Regular Prescriptions: New prednisone 20 mg tablet 20 mg PO BID Qty: 6 0RF hydrocodone-acetaminophen 5-325 mg tablet 1 tab PO Q8H PRN (Reason: pain) Qty: 10 0RF No Action losartan 50 mg tablet 25 mg PO DAILY levothyroxine 100 mcg tablet 100 mcg PO DAILY atorvastatin 40 mg tablet 40 mg PO HS pantoprazole 20 mg tablet,delayed release (DR/EC) 20 mg PO DAILY Dulera 200-5 mcg/actuation HFA aerosol inhaler 2 puff inhalation BID Patient Comments: albuterol sulfate 90 mcg/actuation HFA aerosol inhaler 2 inh inhalation Q4H PRN metoprolol succinate 25 mg tablet extended release 24 hr 25 mg PO DAILY aspirin 81 mg capsule 81 mg PO DAILY multivitamin [Daily Multi-Vitamin] Tablet 1 tab PO DAILY cyanocobalamin (vitamin B-12) 500 mcg tablet 500 mcg PO DAILY cholecalciferol (vitamin D3) 25 mcg (1,000 unit) capsule 25 mcg PO DAILY vitamin B complex [B Complex-Vitamin B12] Tablet 1 tab PO DAILY lorazepam 0.5 mg Tablet 0.5 - 1 mg PO Q6H PRN (Reason: Anxiety) Qty: 30 0RF Macrobid escitalopram oxalate 10 mg tablet 10 mg PO DAILY fluticasone propionate [Flonase Allergy Relief] 50 mcg/actuation spray,suspension 1 spray intranasal DAILY PRN Rx Instructions: administer into each nostril Follow Up/Referrals: Niall Long MD [Primary Care Provider] - Stand Alone Forms: [employer] Info Instructions
== END 2023-10-13 09:21 | disposition home or self-care (01) ==
PROVIDERS: Emergency Provider Family Medicine; PCP Family Medicine
DX: M25.561 Pain in right knee (principal)
CPT/HCPCS: 73562; 73590; 99283; 99284

== ENCOUNTER 2024-03-28 06:01 | Day surgery (SDC) | payer MEDICARE, SELFPAY ==
[2024-03-28] VITALS (26 sets, daily range): BP systolic 103–167; BP diastolic 51–86; PULSE 46–64; RESP 16–18; TEMP 36–37.1; O2SAT 93–98; BMI 28.5
--- OUTSIDE RECORDS SUMMARY | 2024-03-28 06:04 | XMS_ITS | Clinical Summary ---
Author Organization [facility] [facility] [employer] [facility] Address [place], [place] [address] Care Team Providers Care X Ray Consultant Name Role Phone Votel, Niall Solis MD [...] by mouth once daily. 0 04/01/2021 Active fluticasone (50 mcg per actuation) nasal solution (FLONASE) Inhale 1 [place] into affected nostril(s) once daily if needed for Rhinitis. Active escitalopram oxalate (LEXAPRO) 10 mg tablet Take 10 mg by mouth once daily. 02/11/2023 Active cholecalciferol, Vitamin D3, 2,000 unit tabletIndications:[facility] Take 1 Tablet (2,000 units) by mouth once daily. 0 03/08/2023 Active albuterol HFA (ProAir HFA) 90 mcg/actuation inhalerIndications:M ild persistent asthma without complication Inhale 1-2 puffs by mouth every 4 hours if needed for Shortness of Breath 1st choice or Wheezing 2nd choice 1 Each 09/11/2023 Active pantoprazole (PROTONIX) 20 mg tabletIndications:Ch ronic GERD Take 1 Tablet (20 mg) by mouth once daily. 90 Tablet 3 11/16/2023 Active mometasone-formotero l (DULERA) 200-5 mcg/actuation inhalerIndications:M oderate persistent asthma, unspecified whether complicated Inhale 2 Puffs by mouth two times daily. 39 g 3 11/16/2023 Active levothyroxine (SYNTHROID) 100 mcg tabletIndications:Hy pothyroidism, unspecified type Take 1 Tablet (100 mcg) by mouth once daily. 90 Tablet 3 11/16/2023 Active meclizine (ANTIVERT) 12.5 mg tabletIndications:Na usea and vomiting, unspecified vomiting type,Dizziness Take 1 Tablet (12.5 mg) by mouth 3 times daily if needed for Nausea/Vomiting (take 12.5 mg - 25 mg). 30 Tablet 02/04/2024 Active ascorbic acid, vitamin C, (Vitamin C) 1,000 mg tablet Take 1,000 mg by mouth once daily. 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 90 Tablet 3 02/29/2024 Active losartan (COZAAR) 25 mg tabletIndications:Ta kotsubo cardiomyopathy Take 1 Tablet (25 mg) by mouth once daily. 90 Tablet 3 02/29/2024 Active metoprolol succinate (Toprol XL) 25 mg Sustained-Release tabletIndications:HT N (hypertension) Take 1 Tablet (25 mg) by mouth once daily. 90 Tablet 3 02/29/2024 Active losartan (COZAAR) 25 mg tabletIndications:Ta kotsubo cardiomyopathy Take 1 Tablet (25 mg) by mouth once daily. 90 Tablet 3 02/25/2023 4 Discontinue d(Reorder (E-cancel not sent)) metoprolol succinate (Toprol XL) 25 mg Sustained-Release tabletIndications:HT N (hypertension) Take 1 Tablet (25 mg) by mouth once daily. 90 Tablet 3 02/25/2023 4 Discontinue d(Reorder (E-cancel not sent)) atorvastatin (LIPITOR) 40 mg tabletIndications:At herosclerosis of [place] coronary artery of [place] heart with angina pectoris (HC) Take 1 Tablet (40 mg) by mouth at bedtime. 90 Tablet 3 11/16/2023 4 Discontinue d(Reorder (E-cancel not sent)) ondansetron (ZOFRAN ODT) 4 mg disintegrating tabletIndications:Na usea and vomiting, unspecified vomiting type Place 1 Tablet (4 mg) on the tongue every 8 hours if needed for Nausea/Vomiting . 30 Tablet 02/04/2024 4 Discontinue d(*Patient states no longer taking) Active Problems Problem Noted Date Diagnosed Date Myocardial infarction 01/29/2023 NSTEMI (non-ST elevated myocardial infarction) 0 01/14/2023 Takotsubo cardiomyopathy 01/14/2023 HTN (hypertension) 01/14/2023 Onychomycosis 01/14/2023 Asthma 01/14/2023 GERD (gastroesophageal reflux disease) 3 Nonischemic cardiomyopathy 07/18/2020 Assessment & Plan (11/18/2022 1:47 PM CDT): Sress Cardiomyopathy and this has resolved. Atherosclerosis of [place] co ronary artery of [place] heart with angina pectoris 07/18/2020 Encounters Date Type Department Care Team Description 03/14/2024 10:50 AM CDT Office Visit [facility] [address] [place] [address] Votel, Niall Solis MD Preoperative Exam (03/28/24, Dr. Santos, ld , rt knee) 03/14/2024 Travel 03/01/2024 Orders Only [facility] Scanner 1 scan: (1-Ord) [facility], INCISION WAS MADE FOLLOWING THE MOHS APPROACH THROUGH THE SKIN, 03/01/2024 02/29/2024 11:30 AM CDT [facility] [address] [place] [address] Adrianne Ma MD Follow Up (ANNUAL GEN CARD FOLLOW UP PT DX:Takotsubo cardiomyopathy /Pt states feeling well today, no current cardiac symptoms at this time. Would like to discuss if she can d/c the aspirin. ) 02/29/2024 Travel 02/04/2024 1:25 PM CDT Office Visit [facility] [address] [place] [phone] Maggi Ozuna Q, [employer] Lightheaded 02/04/2024 Travel from Last 3 Months Immunizations Name [...] Communication with Friends and Fami ly 0 02/04/2024 Financial Resource Strain Answer Date R ecorded Difficulty of Paying Living Expenses 3 02/04/2024 Difficulty of Paying Living Expenses Not on file 02/04/2024 Food Insecurity Answer Date Recorded Worried About Running Out of Food in the Last Ye ar 1 02/04/2024 Transportation Needs Answer Date Record ed Lack of Transportation (Medical) 1 02/04/2024 Housing Stability Answer Date Recorded Unable to Pay for Housing in the Last Year 1 02/04/2024 Sex and Gender Information Value Date Recorded Sex Assigned at Not on file Gender Identity Not on file Sexual Orientation Not on file Obstetrics History Last Filed Vital Signs Vital Sign Reading Time Taken Comments Blood Pressure 132/83 03/14/2024 11:01 AM CDT Pulse 56 03/14/2024 11:01 AM CDT Temperature 36.4 ??C (97.6 ??F) 03/14/2024 11:01 AM C DT Respiratory Rate 19 02/04/2024 1:28 PM CDT Oxygen Saturation 96% 03/14/2024 11:01 AM CDT Inhaled Oxygen Concentration - - Weight 86.3 kg (190 lb 4.8 oz) 03/14/2024 11:01 AM CDT Height 173 cm (5' 8.1) 03/14/2024 11:01 AM CDT Body Mass Index 28.85 03/14/2024 11:01 AM CDT Plan of Treatment Health Maintenance Due Date Last Done Comments Hepatitis C screening for ag e 18-04/10/1963 Zoster (shingles) series for age 50+ (3 of 3) 02/23/2019 12/29/2018, 09/22/2011 RSV vaccine for adults or (1 - 1-dose 75+ series) 2021 Tetanus booster 07/13/2023 07/13/2013, 12/2004, 04/20/2005, Additional history exists Medicare Wellness for age 65+ 11/19/2023, 09/09/2021, 07/18/2020 Depression screening for age 12+ 11/21/2023 11/20/2022, 11/18/2022, 09/09/2021, Additional history exists COVID-19 vaccine series ( season) 2024 05/20/2021, 08/27/2020, 07/30/2020 Influenza for age 65+ 02/13/2024 03/01/2023 , 04/27/2022, 04/09/2021, Additional history exists BMI (ht and wt on same day) for age 18+ 03/14/2025 03/14/2024, 02/29/2024, 11/16/2023, Additional history exists Tdap Completed 07/13/2013 Pneumococcal series for age 65+ Completed 05/02/2015, 07/13/2013, 04/20/2005 DEXA/DXA scan for age 65+ Completed 07/25/2020 Procedures Procedure Name Priority Date/Time Associated Diagnosis Comments CBC WITH AUTO DIFFERENTIAL Routine 03/14/2024 12:05 PM CDT BASIC METABOLIC PANEL Routine 03/14/2024 12:05 PM CDT HTN (hypertension) SCAN-OPERATIVE/PROCED URE REPORT 03/01/2024 12:00 AM CDT XR DXA BONE DENSITY 2 SITES AXIAL Routine 07/25/2020 10:35 AM STRETCHING PRESS OPERATOR Menopause from Last 3 Months or Most Recently Relevant to Health Maintenance Results * CBC WITH AUTO DIFFERENTIAL (03/14/2024 12:05 PM CDT) WHITE BLOOD CELL COUNT 6.2 3.8 - 10.8 Thousand/u L [facility] RED BLOOD CELL COUNT 4.42 3.80 - 5.10 Million/uL [facility] HEMOGLOBIN 13.2 11.7 - 15.5 g/dL [facility] HEMATOCRIT 40.8 35.0 - 45.0 % [facility] MCV 92.3 80.0 - 100.0 fL [facility] MCH 29.9 27.0 - 33.0 pg [facility] MCHC 32.4 32.0 - 36.0 g/dL [facility] Comment: For adults, a slight decrease in the calculated MCHC value (in the range of 30 to 32 g/dL) is most likely not clinically significant; however, it should be interpreted with caution in correlation with other red cell parameters and the patient's clinical condition. RDW 12.7 11.0 - 15.0 % [facility] PLATELET COUNT 242 140 - 400 Thousand/u L [facility] MPV 9.8 7.5 - 12.5 fL [facility] ABSOLUTE NEUTROPHILS 3,528 1,500 - 7,800 cells/uL [facility] ABSOLUTE LYMPHOCYTES 2,083 850 - 3,900 cells/uL [facility] ABSOLUTE MONOCYTES 484 200 - 950 cells/uL [facility] ABSOLUTE EOSINOPHILS 93 15 - 500 cells/uL [facility] ABSOLUTE BASOPHILS 12 0 - 200 cells/uL [facility] NEUTROPHILS 56.9 % [facility] LYMPHOCYTES 33.6 % [facility] MONOCYTES 7.8 % [facility] EOSINOPHILS 1.5 % [facility] BASOPHILS 0.2 % [facility] 03/14/2024 12:0 5 PM CDT 03/14/2024 12:05 PM CDT Niall Long MD HEMATOLOGY [facility] [address] [place] [address], [facility] [address] [place] [address] * BASIC METABOLIC PANEL (03/14/2024 12:05 PM CDT) GLUCOSE 94 65 - 99 mg/dL [facility] Comment: ? Fasting reference interval UREA NITROGEN (BUN) 18 7 - 25 mg/dL [facility] CREATININE 0.86 0.60 - 1.00 mg/dL [facility] EGFR 70 > OR = 60 mL/min/1. 73m2 [facility] BUN/CREATININE RATIO SEE NOTE: 6 - 22 (calc) [facility] Comment: ?? Not Reported: BUN and Creatinine are within ?? reference range. ? SODIUM 141 135 - 146 mmol/L [facility] POTASSIUM 4.9 3.5 - 5.3 mmol/L [facility] CHLORIDE 106 98 - 110 mmol/L [facility] CARBON DIOXIDE 27 20 - 32 mmol/L [facility] ELECTROLYTE BALANCE 8 7 - 17 mmol/L (calc) [facility] CALCIUM 9.5 8.6 - 10.4 mg/dL [facility] Blood BLOOD SPECIMEN / Unknown 03/14/2024 12:05 PM CDT 03/14/2024 12:05 PM CDT Niall Long MD CHEMISTRY [employer] [facility] [address] [place] [address], [facility] [address] [place] [address] * SCAN-OPERATIVE/PROCEDURE REPORT (03/01/2024 12:00 AM CDT) Scanner OTHER * XR DXA BONE DENSITY 2 SITES AXIAL (07/25/2020 10:35 AM STRETCHING PRESS OPERATOR) Anatomical Region Laterality Modality Spine, HIPS, HIPL, HIPR Other Impressions 07/31/2020 8:57 AM STRETCHING PRESS OPERATOR Normal bone density. RECOMMENDATIONS: - The [...] Janie Bryant PA-C Narrative 07/31/2020 8:57 AM STRETCHING PRESS OPERATOR XR DXA Bone Mineral Density (BMD) EXAM LOCATION: [facility] [address] [address] [facility] [address] PATIENT NAME: Carissa Bradley DATE OF : [...] two scanners are made by the same shuttler car. PROCEDURE: Dual-energy x-ray absorptiometry performed with routine [...] Code Status Discussion: Reviewed Preferences Care Teams X Ray Consultant Relationship Specialty Start Date End Date Niall Long MD [address] [place] [address] PCP - General Family Practice 04/01/21
[2024-03-28] MEDS: OXYCODONE (CR) 10 MG TAB.ER.12H PO (06:15)
[2024-03-28] MEDS: ACETAMINOPHEN 500 MG TABLET 1000 MG PO ×4 (06:15→23:45)
[2024-03-28] MEDS: CELECOXIB 200 MG CAPSULE PO (06:15)
[2024-03-28] MEDS: SODIUM CHLORIDE 0.9 % (FLUSH) 10 ML SYRINGE IVF (06:55)
[2024-03-28] MEDS: LACTATED RINGERS 1000 ML 1,000 ML 100 ML IV (07:08)
[2024-03-28] MEDS: fentaNYL 100 MCG/2 ML inj IVP (07:18)
[2024-03-28] MEDS: MIDAZOLAM HCL 1 MG/ML inj IVP (07:18)
--- NOTE | 2024-03-28 07:27 | SUR.PREOP ---
TIME?OUT:?0717 PT/RN/MDA?VERIFICATION?OF?SURGICAL?SITE,?PROCEDURE,?AND?CONSENT OBTAINED?PRIOR?TO?INVASIVE?PROCEDURE.
--- NOTE | 2024-03-28 08:06 | W.ANESCHARGE ---
Anesthesia Charges Start Date/Time Anesthesia Start Date: 03/28/24 Anesthesia Start Time: 08:09 Stop Date/Time Anesthesia Stop Date: 03/28/24 Anesthesia Stop Time: :24 Summary Extremes of Age - Over 70 or under 1: MDA
--- NOTE | 2024-03-28 08:07 | W.PM.NB ---
Nerve Block Nerve Block Time Seen by Provider: 07:20 Date Seen: 03/28/24 Type of block requested by surgeon for post-operative analgesia: femoral Side: right Time out performed: Yes Verification of patient name: Yes Verification of date of : Yes Site marking: site marked Name of person performing procedure: Zhou Continuous monitoring Was continuous monitoring of O2 sat, B/P, satellite project site monitor, recorded every 15 minutes?: Yes Procedure Checklist: sterile prep, needles and gloves Ultrasound guided. Images saved: Yes Medications given in 5ml increments after negative aspiration: Marcaine %: 0.25 mL: 15 Needle gauge: 20 Precedex (mcg): 25 Patient tolerated procedure well: Yes Block Charges Block Charge (with Pro Fee): Femoral Nerve Use of Ultrasound Machine for Block: Yes- US Guidance/pain block
--- NOTE | 2024-03-28 08:08 | W.PM.NB ---
Nerve Block Nerve Block Time Seen by Provider: 07:20 Date Seen: 03/28/24 Type of block requested by surgeon for post-operative analgesia: geniculars Side: right Time out performed: Yes Verification of patient name: Yes Verification of date of : Yes Site marking: site marked Name of person performing procedure: Zhou Continuous monitoring Was continuous monitoring of O2 sat, B/P, monitoring manager, recorded every 15 minutes?: Yes Procedure Checklist: sterile prep, needles and gloves Medications given in 5ml increments after negative aspiration: Ropivicaine %: 0.5 mL: 9 Needle gauge: 25 Patient tolerated procedure well: Yes Block Charges Block Charge (with Pro Fee): Genicular Nerve Block Use of Ultrasound Machine for Block: No
[2024-03-28] MEDS: TRANEXAMIC ACID 100 MG/ML INJ 1000 MG IV (08:35)
[2024-03-28] MEDS: CEFAZOLIN 2 GM INJ IVP (08:37)
--- NOTE | 2024-03-28 09:29 | CRLHL7_ITS ---
For Patients: As a result of the Century Cures Act, medical imaging exams and procedure reports are released immediately into your electronic medical record. You may view this report before your referring provider. If you have questions, please contact your health care provider. INDICATION: Postop TKA. TECHNIQUE: Two views of the right knee. FINDINGS: New right TKA. Components appear well seated. Adjacent postop soft tissue air. Dictated by Elie Rolle MD @ 03/29/2024 4:00:02 PM (Electronically Signed)
--- NOTE | 2024-03-28 09:31 | PM.ORPRC ---
Procedure Note Date of procedure: 03/28/24 Procedure: PREOPERATIVE DIAGNOSIS: Right knee osteoarthritis POSTOPERATIVE DIAGNOSIS: Right knee osteoarthritis NAME OF OPERATION: Right total knee arthroplasty SURGEON: Jamaal Santos MD DEVELOPMENTAL MATHEMATICS INSTRUCTOR: Brionna Anand PA-C ANESTHESIA: Spinal ESTIMATED BLOOD LOSS: 0 mL COMPLICATIONS: None SPECIMENS: None DRAINS: None PREOPERATIVE ANTIBIOTICS: Ancef 2 grams IMPLANTS: 1. J&J Attune #6 posterior stabilized femur 2. #6 fixed-bearing tibia 3. #6 posterior stabilized, 5 mm fixed-bearing polyethylene 4. 35 patella INDICATIONS: The patient is a 78-year-old with a longstanding history of severe, unrelenting right knee pain secondary to end-stage (grade IV) right knee osteoarthritis. Despite appropriate nonoperative management, including activity modification, anti-inflammatories, bavt-[id number] pain medication, bracing, physical therapy, and injections they continue to have pain and disability. Operative intervention was offered. The risks, benefits and expected outcomes were discussed in detail. These included but were not limited to: Infection, bleeding, injury to blood vessel or nerve, venous thromboembolism. All questions were answered to their satisfaction. Use of an assistant professor sculpture was necessary throughout the case for patient positioning and safety, soft tissue retraction, and closure. PROCEDURE: Spinal anesthesia was administered. The patient was placed supine on the operating table. The assistant professor sculpture made sure the patient was positioned appropriately. The lower extremity was prepped and draped in the usual sterile fashion. The limb was exsanguinated with the Lee bandage. The pneumatic tourniquet was inflated to 300 mmHg. A standard anterior incision was made with the knee in flexion. Subcutaneous dissection was sharply taken through fascial layer #1. Full-thickness medial and lateral flaps were elevated. The assistant professor sculpture retracted the soft tissues and protected them throughout the case. A standard subvastus approach was made. The patella was subluxed. The infrapatellar fat pad was preserved. The menisci and cruciate ligaments were sharply d?brided. Marginal osteophytes were d?brided with the rongeur. The drill was used to penetrate the femoral canal. The canal was aspirated and irrigated with pulse lavage. The intramedullary femoral guide was placed for a 5-degree valgus cut, removing 10 mm off the distal femur. The saw was used to make the cut. [place] line and the trans epicondylar axis were marked. The femoral sizing guide was pinned onto the distal femur. The degrees of external rotation nicely parallels the transepicondylar axis. Pins were placed for posterior referencing. The four-in-one cutting guide was pinned onto the distal femur. The anterior, posterior, and chamfer cuts were made. The assistant professor sculpture protected the collateral ligaments. The box cutting guide was pinned. The box cuts were made. The boxed trial was placed and was an excellent fit. Drill holes for the lugs were made. Attention was then turned to the proximal tibia. The extramedullary tibial guide was placed for a neutral varus/valgus cut with 5 degrees of posterior slope, removing 2 mm based off the medial tibial surface. The assistant professor sculpture protected the collateral ligaments and the neurovascular bundle. The saw was used to make the cut. Trial components were placed. The knee was nicely balanced in both flexion and extension. The trial components were removed. The tray was placed in appropriate rotation, parallel to our tibial cutting pins. It was pinned by the assistant professor sculpture and the drill and the punch were used. The tray was removed. The punch was used again. We placed a bone plug in the femoral canal. Attention was then turned to the patella. [place] patellar thickness was 21.5 mm. The lobster claw resection guide was used with the 7.5 mm fabiano. The saw was used to make the cut. Drill holes were made by the assistant professor sculpture. The trial was placed and was an excellent fit. Cancellous surfaces were irrigated with pulse lavage and thoroughly dried by the assistant professor sculpture. We cemented the tibial component, then the femoral component. We impacted the 5 mm polyethylene onto the tibial tray. The knee was brought into full extension. We then cemented the patellar component. Excessive cement was removed. The cement was allowed to harden. The knee was taken through a range of motion and was found to be nicely balanced in both flexion and extension. The patella tracks centrally. The assistant professor sculpture did a three minute dilute Betadine solution soak. The assistant professor sculpture irrigated the wound with 3 liters of normal saline via pulse lavage. The assistant professor sculpture reapproximated the extensor mechanism with #1 Vicryl in an interrupted [id number] fashion. The assistant professor sculpture then ran the extensor mechanism with a #1 PDO Stratafix. The assistant professor sculpture closed the subcutaneous tissues with a 3-0 Stratafix and the skin with a running 3-0 Stratafix in a subcuticular fashion. Glue was used to seal the skin. The assistant professor sculpture placed a dry dressing. Sponge and needle counts were correct x2. The patient tolerated the procedure well. There were no apparent complications. They were carefully transferred to the hospital bed and taken to the postanesthesia care unit in satisfactory condition. PLAN: The patient will be mobilized with physical therapy. Aspirin will be used for DVT prophylaxis. They will be discharged to home once medically appropriate.
--- NOTE | 2024-03-28 10:27 | P.ANES_ITS ---
Anesthesia Charges Start Date/Time Anesthesia Start Date: 03/28/24 Anesthesia Start Time: 08:09 Stop Date/Time Anesthesia Stop Date: 03/28/24 Anesthesia Stop Time: :24 Summary Extremes of Age - Over 70 or under 1: RECORDS MANAGEMENT COORDINATOR
[2024-03-28] MEDS: CEFAZOLIN 2 GM in 0.9 % SODIUM CHLORIDE Mini-bag 100 ML IVPB ×2 (15:37→23:36)
--- NOTE | 2024-03-28 17:31 | P.IMCN_ITS ---
Date of Consult Patient: Lissa Patient Consult date: 03/28/24 Requesting Physician: Orthopedics Primary Care Provider: Niall Long MD Consult Narrative Reason for consult: h/o asthma, takostubo, HTN, hyperlipidemia Narrative: Carissa Bradley is a 78 year old female Review of Systems Status of ROS: Reports: 6 or more systems reviewed and unremarkable except as noted in History and below [facility] Medical History (Updated 03/28/24 @ 17:42 by Harmony Jose MD) Takotsubo syndrome (~01/14/23) ?I51.81 - Takotsubo syndrome (ICD-10) Uterine endometriosis ?N80.00 - Endometriosis of the uterus, unspecified (ICD-10) Onychomycosis ?B35.1 - Tinea unguium (ICD-10) Non-ST elevated myocardial infarction (non-STEMI) (~01/14/23) ?I21.4 - Non-ST elevation (NSTEMI) myocardial infarction (ICD-10) Hypothyroidism ?E03.9 - Hypothyroidism, unspecified (ICD-10) GERD (gastroesophageal reflux disease) ?K21.9 - Gastro-esophageal reflux disease without esophagitis (ICD-10) Asthma ?J45.909 - Unspecified asthma, uncomplicated (ICD-10) Hyperlipidemia ?E78.5 - Hyperlipidemia, unspecified (ICD-10) Hypertension ?I10 - Essential (primary) hypertension (ICD-10) Surgical History (Updated 03/28/24 @ 17:41 by Harmony Jose MD) Status post total right knee replacement ?Z96.651 - Presence of right artificial knee joint (ICD-10) History of cataract extraction ?Z98.49 - Cataract extraction status, unspecified eye (ICD-10) Hx of colonoscopy ?Z98.890 - Other specified postprocedural states (ICD-10) Family History (Updated 12/20/23 @ 10:21 by Soni Riggins ~ [facility], [facility]) Sister Alzheimer's dementia Breast cancer Aunt Breast cancer Family/Other Breast cancer Mother Cardiovascular disease Osteoarthritis Father COPD (chronic obstructive pulmonary disease) Osteoarthritis Brother Osteoarthritis Social History (Reviewed 12/20/23 @ 10:20 by Soni Riggins ~ [facility], [facility]) Narrative: . Lives in a house with her . Denies tobacco, EtOH, recreational drug use. What is your current living situation?: I presently have a place to live Problems where you live: no known problems Problems where you live details: NA In the past 12 months, utilities in danger of being shut off: no In past 12 months, lack of transportation kept you from medical appts, meetings, work, or getting things needed for daily living: no In the past 12 mos, have been you worried that your food would run out before you had money to buy more?: never true In the past 12 mos, the food you bought just didn't last and you didn't have money to buy more?: never true Highest level of school completed/degree received: Bachelor's degree Smoking Status: Never smoker Do you use any of these nicotine containing products: None Second hand tobacco smoke exposure: No How often do you have a drink containing alcohol: never How often do you have six or more drinks on one occasion: Never AUDIT-C Alcohol total score: 0 Non-prescribed substance use: denies use Caffeine: Yes How often does anyone, including family, friends and others, physically hurt you : never How often does anyone, including family, friends and others, insult or talk down to you: never How often does anyone, including family, friends and others, threaten you with harm: never How often does anyone, including family, friends and others, scream or curse at you: never Are you using contraception or practicing any form of control: No service: No Meds Home Medications and Allergies Home Medications ?Medication ?Instructions ?Recorded ?Confirmed ?Type albuterol sulfate 90 mcg/actuation 2 inh inhalation Q4H PRN 05/15/22 03/28/24 History aerosol inhaler atorvastatin 40 mg tablet 40 mg PO HS 05/15/22 03/28/24 History levothyroxine 100 mcg tablet 100 mcg PO DAILY 05/15/22 03/28/24 History mometasone-formoterol HFA 200 2 puff inhalation BID 05/15/22 03/28/24 History mcg-5 mcg/actuation aerosol inhaler (Dulera) pantoprazole 20 mg tablet,delayed 20 mg PO DAILY 05/15/22 03/28/24 History release aspirin 81 mg capsule 81 mg PO DAILY 01/17/23 03/28/24 History metoprolol succinate 25 mg 25 mg PO DAILY 01/17/23 03/28/24 History tablet,extended release 24 hr cholecalciferol (vitamin D3) 25 50 mcg PO DAILY 01/18/23 03/28/24 History mcg (1,000 unit) capsule vitamin B complex (B 1 tab PO DAILY 01/18/23 03/28/24 History Complex-Vitamin B12 tablet) escitalopram oxalate 10 mg tablet 10 mg PO DAILY 03/23/23 03/28/24 History fluticasone propionate 50 1 spray intranasal DAILY PRN 03/23/23 03/28/24 History mcg/actuation nasal spray,suspension (Flonase Allergy Relief) losartan 25 mg tablet 25 mg PO DAILY 12/20/23 03/28/24 History meclizine 12.5 mg tablet 12.5 mg PO TID PRN nausea/vomiting 03/27/24 03/28/24 History Allergies Allergy/AdvReac Type Severity Reaction Status Date / Time doxycycline Allergy Diarrhea Verified 03/27/24 08:21 Penicillins Allergy Anaphylaxis Verified 12/20/23 10:14 Sulfa (Sulfonamide Allergy Verified 03/27/24 08:21 Antibiotics) sulfamethoxazole Allergy Rash Verified 03/27/24 08:21 [From Bactrim] trimethoprim [From Bactrim] Allergy Rash Verified 03/27/24 08:21 RIAN Inhibitors AdvReac Cough Verified 12/20/23 10:14 Exam Narrative: Exam Narrative: General: No acute distress. Awake alert oriented x3. Pleasant. HEENT: Normocephalic atraumatic, pupils equally round and reactive to light and accommodation. Oropharynx clear. Mucous membranes are moist. No cervical lymphadenopathy, thyromegaly or carotid bruits. No JVD. Cardiovascular: Regular rate and rhythm. No murmurs, gallops, or rubs. Chest: No increased work of breathing. Clear to auscultation bilaterally. No crackles or wheezes. Abdomen: Bowel sounds present. Soft, nondistended, nontender. No hepatosplenomegaly or masses. Extremities: Right knee bandage is clean, dry, and intact. Trace bilateral lower extremity edema, no cyanosis or clubbing. Skin: No jaundice, no pallor, no rashes. Const: Vital Signs, click to edit/add: Vital Signs - 24 hr 03/28/24 06:39 03/28/24 07:18 03/28/24 07:25 Temperature 98.7 F Pulse Rate 64 56 L 50 L Pulse Rate [Left P ulse Oximeter] Respiratory Rate 16 16 16 Blood Pressure 139/71 157/73 H 128/57 L Blood Pressure [Ri ght Arm] Pulse Oximetry 96 97 98 Oxygen Delivery Me thod Room Air Nasal Cannula Nasal Cannula Oxygen Flow Rate 2 2 03/28/24 07:30 03/28/24 10:19 03/28/24 10:25 Temperature 97.8 F Pulse Rate 48 L 52 L 49 L Pulse Rate [Left P ulse Oximeter] Respiratory Rate 16 16 18 Blood Pressure 123/58 L 104/52 L 103/51 L Blood Pressure [Ri ght Arm] Pulse Oximetry 97 95 94 Oxygen Delivery Me thod Nasal Cannula Room Air Room Air Oxygen Flow Rate 2 03/28/24 10:30 03/28/24 10:35 03/28/24 10:40 Temperature 97.5 F L Pulse Rate 46 L 46 L 47 L Pulse Rate [Left P ulse Oximeter] Respiratory Rate 18 16 16 Blood Pressure 103/54 L 105/56 L 118/59 L Blood Pressure [Ri ght Arm] Pulse Oximetry 93 93 93 Oxygen Delivery Me thod Room Air Room Air Room Air Oxygen Flow Rate 03/28/24 10:45 03/28/24 10:50 03/28/24 11:00 Temperature 97.4 F L 97.0 F L Pulse Rate 51 L 50 L 47 L Pulse Rate [Left P ulse Oximeter] Respiratory Rate 18 18 16 Blood Pressure 116/64 114/62 153/78 H Blood Pressure [Ri ght Arm] Pulse Oximetry 95 96 96 Oxygen Delivery Me thod Room Air Room Air Room Air Oxygen Flow Rate 03/28/24 11:00 03/28/24 11:05 03/28/24 11:15 Temperature 97.0 F L 96.9 F L 97.1 F L Pulse Rate 47 L 47 L Pulse Rate [Left P ulse Oximeter] 47 L Respiratory Rate 16 18 18 Blood Pressure 153/78 H 151/79 H Blood Pressure [Ri ght Arm] 153/78 H Pulse Oximetry 96 95 96 Oxygen Delivery Me thod Room Air Room Air Room Air Oxygen Flow Rate 0 0 03/28/24 11:30 03/28/24 11:45 03/28/24 12:00 Temperature 97.2 F L 96.8 F L 96.9 F L Pulse Rate 47 L 46 L 46 L Pulse Rate [Left P ulse Oximeter] Respiratory Rate 18 18 18 Blood Pressure 164/70 H 162/70 H 154/73 H Blood Pressure [Ri ght Arm] Pulse Oximetry 97 95 95 Oxygen Delivery Me thod Room Air Room Air Room Air Oxygen Flow Rate 0 0 0 03/28/24 12:30 03/28/24 13:00 03/28/24 14:00 Temperature 97.0 F L 97.0 F L 97.0 F L Pulse Rate 53 L 48 L 48 L Pulse Rate [Left P ulse Oximeter] Respiratory Rate 18 18 18 Blood Pressure 147/79 H 163/81 H 159/68 H Blood Pressure [Ri ght Arm] Pulse Oximetry 94 97 97 Oxygen Delivery Me thod Room Air Room Air Room Air Oxygen Flow Rate 0 0 0 03/28/24 15:00 Temperature 97.0 F L Pulse Rate 48 L Pulse Rate [Left P ulse Oximeter] Respiratory Rate 18 Blood Pressure 165/76 H Blood Pressure [Ri ght Arm] Pulse Oximetry 95 Oxygen Delivery Me thod Room Air Oxygen Flow Rate 0 Assessment and Plan Assessment and plan (1) Status post total right knee replacement: Problem comment: - 03/28/24 Dr. Santos - routine post op cares - VTE prophylaxis with BID baby aspirin for 4 weeks Status: Acute (2) Hypertension: Problem comment: - Continue metoprolol due to h/o Takotsubo - Hold losartan tomorrow morning Status: Chronic (3) Asthma: Problem comment: - continue Dulera and prn albuterol Status: Chronic (4) Hyperlipidemia: Problem comment: - continue statin Status: Chronic (5) Osteoarthritis of right knee: Status: Acute (6) Hypothyroidism: Problem comment: - Continue levothyroxine Status: Chronic (7) Bradycardia: Problem comment: - asymptomatic, takes metoprolol at home, likely also due to recent surgery/anesthesia - Monitor on tele - Hold metoprolol for HR <55 Status: Acute
[2024-03-28] MEDS: OXYCODONE 5 MG TABLET PO ×4 (18:01→23:45)
--- NOTE | 2024-03-28 20:10 | PC.NURSE ---
Pt arrived to floor at 1100. Alert oriented and vitally stable. Pt up to chair and to bathroom via 1 a walker and gait belt, tolerates well. Pt advanced to regular diet and tolerates well, denies nausea. Pt pain rated 8/10, prn oxy given, pt stated improvement. Wound dressing clean dry and intact.
[2024-03-28] MEDS: HYDROmorphone 0.5 mg/0.5 ml inj IVP (20:14)
[2024-03-28] MEDS: SENNOSIDES 1 TAB TABLET 2 TAB PO (20:14)
[2024-03-28] MEDS: MOMETASONE FORMOTEROL IH (20:15)
[2024-03-28] MEDS: ASPIRIN 81 MG TABLET EC PO (20:15)
[2024-03-28] MEDS: ATORVASTATIN CALCIUM 40 MG TABLET PO (20:15)
[2024-03-29 03:00] VITALS: BP 143/66; PULSE 57; RESP 18; TEMP 36.1; O2SAT 97
[2024-03-29] MEDS: LEVOTHYROXINE 100 MCG TABLET PO (06:13)
[2024-03-29] MEDS: OMEPRAZOLE 20 MG CAPSULE DR PO (06:13)
[2024-03-29] MEDS: ACETAMINOPHEN 500 MG TABLET 1000 MG PO (06:16)
[2024-03-29 06:32] LABS: Hematocrit 38.1 % (33.0-51.0); Hemoglobin* 12.1 gm/dL (12.0-16.0); Immature Granulocytes Pct Auto 0.2 %; Lymphocytes Percent Auto 10.5 % (20-44); Mean Corpuscular HGB Conc 32 gm/dL (32-36); Mean Corpuscular Hemoglobin 30 pg (26-34); Mean Corpuscular Volume 93 fL (80-100); Monocytes Percent Auto 5.6 % (0.0-11.0); Neutrophils Percent Auto 83.7 % (42.0-72.0); Platelet Count* 211 K/uL (140-440); RDW Coefficient of Variation % 13.1 % (11.5-15.5); Red Blood Count 4.08 m/uL (4.00-5.20); White Blood Count* 11.84 K/uL (4.50-11.00)
[2024-03-29 06:35] LABS: Slide Review Reflex No
[2024-03-29 06:43] LABS: Potassium* 4.9 mmol/L (3.6-5.1); Sodium* 135 mmol/L (135-149)
[2024-03-29 06:46] LABS: Creatinine* 0.7 mg/dL (0.5-1.5); Est. Creatinine Clearance* 47.53; Estimated Glomerular Filt Rate 89 ml/min
[2024-03-29 06:47] LABS: Blood Urea Nitrogen* 21 mg/dL (7-30)
[2024-03-29 06:53] LABS: INR 0.98 (0.91-1.10); Prothrombin Time 13.6 Seconds
[2024-03-29 07:00] VITALS: PULSE 51
--- NOTE | 2024-03-29 07:00 | PC.NURSE ---
End of shift [id number]: Pleasant and cooperative with cares. Pain well managed with current regimen. Dressing to right knee clean, dry and intact. CMS intact to RLE, cap refill <3 seconds, non pitting edema to knee. Transfers and ambulates with SBA with gait belt and walker. Denies any nausea or vomiting. Continent of bladder and bowel.
[2024-03-29 07:45] VITALS: BP 135/79; PULSE 52; RESP 18; TEMP 36.4; O2SAT 95
[2024-03-29] MEDS: OXYCODONE 5 MG TABLET PO ×2 (08:20→11:30)
[2024-03-29] MEDS: SENNOSIDES 1 TAB TABLET 2 TAB PO (08:21)
[2024-03-29] MEDS: ESCITALOPRAM 10 MG TABLET PO (08:21)
[2024-03-29] MEDS: MOMETASONE FORMOTEROL IH (08:21)
[2024-03-29] MEDS: ASPIRIN 81 MG TABLET EC PO (08:22)
--- NOTE | 2024-03-29 08:31 | PM.ORPN ---
Subjective Subjective Time Seen by Provider: 07:10 Date Seen: 03/29/24 Principal diagnosis: Status post right knee replacement Interval history: Hemalatha is currently comfortable at rest. She has edema of her lower extremities. She requests compression stockings. She will discharge to home today. Ortho Exam Narrative Exam Narrative: Alert and oriented x3. Patient is in no acute distress. Converses without labored breathing. Hearing is grossly intact. Ambulates with a walker. Examination of the right knee shows very minimal edema about the knee. Pitting edema bilateral lower extremities. Good quad control, able to straight leg raise. CMS intact right lower extremity. Calves are soft and nontender padded Const Vital Signs, click to edit/add: Vital Signs - 24 hr 03/28/24 10:19 03/28/24 10:25 03/28/24 10:30 Temperature 97.8 F Pulse Rate 52 L 49 L 46 L Pulse Rate [Left Pulse Oximeter] Respiratory Rate 16 18 18 Blood Pressure 104/52 L 103/51 L 103/54 L Blood Pressure [Right Arm] Pulse Oximetry 95 94 93 Oxygen Delivery Method Room Air Room Air Room Air Oxygen Flow Rate 03/28/24 10:35 03/28/24 10:40 03/28/24 10:45 Temperature 97.5 F L Pulse Rate 46 L 47 L 51 L Pulse Rate [Left Pulse Oximeter] Respiratory Rate 16 16 18 Blood Pressure 105/56 L 118/59 L 116/64 Blood Pressure [Right Arm] Pulse Oximetry 93 93 95 Oxygen Delivery Method Room Air Room Air Room Air Oxygen Flow Rate 03/28/24 10:50 03/28/24 11:00 03/28/24 11:00 Temperature 97.4 F L 97.0 F L 97.0 F L Pulse Rate 50 L 47 L 47 L Pulse Rate [Left Pulse Oximeter] Respiratory Rate 18 16 16 Blood Pressure 114/62 153/78 H 153/78 H Blood Pressure [Right Arm] Pulse Oximetry 96 96 96 Oxygen Delivery Method Room Air Room Air Room Air Oxygen Flow Rate 03/28/24 11:05 03/28/24 11:15 03/28/24 11:30 Temperature 96.9 F L 97.1 F L 97.2 F L Pulse Rate 47 L 47 L Pulse Rate [Left Pulse Oximeter] 47 L Respiratory Rate 18 18 18 Blood Pressure 151/79 H 164/70 H Blood Pressure [Right Arm] 153/78 H Pulse Oximetry 95 96 97 Oxygen Delivery Method Room Air Room Air Room Air Oxygen Flow Rate 0 0 0 03/28/24 11:45 03/28/24 12:00 03/28/24 12:30 Temperature 96.8 F L 96.9 F L 97.0 F L Pulse Rate 46 L 46 L 53 L Pulse Rate [Left Pulse Oximeter] Respiratory Rate 18 18 18 Blood Pressure 162/70 H 154/73 H 147/79 H Blood Pressure [Right Arm] Pulse Oximetry 95 95 94 Oxygen Delivery Method Room Air Room Air Room Air Oxygen Flow Rate 0 0 0 03/28/24 13:00 03/28/24 14:00 03/28/24 15:00 Temperature 97.0 F L 97.0 F L 97.0 F L Pulse Rate 48 L 48 L 48 L Pulse Rate [Left Pulse Oximeter] Respiratory Rate 18 18 18 Blood Pressure 163/81 H 159/68 H 165/76 H Blood Pressure [Right Arm] Pulse Oximetry 97 97 95 Oxygen Delivery Method Room Air Room Air Room Air Oxygen Flow Rate 0 0 0 03/28/24 15:00 03/28/24 15:00 03/28/24 15:00 Temperature 97.6 F Pulse Rate Pulse Rate [Left Pulse Oximeter] 54 L 48 L Respiratory Rate 18 18 18 Blood Pressure Blood Pressure [Right Arm] 165/76 H Pulse Oximetry 95 95 Oxygen Delivery Method Room Air Room Air Oxygen Flow Rate 0 03/28/24 16:00 03/28/24 17:00 03/28/24 19:00 Temperature 97.6 F 98.2 F 97.7 F Pulse Rate 48 L 54 L Pulse Rate [Left Pulse Oximeter] 56 L Respiratory Rate 18 18 18 Blood Pressure 152/86 H 157/78 H Blood Pressure [Right Arm] 163/80 H Pulse Oximetry 95 96 96 Oxygen Delivery Method Room Air Room Air Room Air Oxygen Flow Rate 0 0 03/28/24 19:06 03/28/24 23:00 03/28/24 23:00 Temperature Pulse Rate 53 L 47 L Pulse Rate [Left Pulse Oximeter] 54 L Respiratory Rate 16 Blood Pressure Blood Pressure [Right Arm] Pulse Oximetry Oxygen Delivery Method Oxygen Flow Rate 03/28/24 23:00 03/28/24 23:00 03/29/24 03:00 Temperature 97.1 F L 96.9 F L Pulse Rate Pulse Rate [Left Pulse Oximeter] 54 L 57 L Respiratory Rate 18 16 18 Blood Pressure Blood Pressure [Right Arm] 167/78 H 143/66 H Pulse Oximetry 94 95 97 Oxygen Delivery Method Room Air Room Air Room Air Oxygen Flow Rate 03/29/24 07:00 Temperature Pulse Rate 51 L Pulse Rate [Left Pulse Oximeter] Respiratory Rate Blood Pressure Blood Pressure [Right Arm] Pulse Oximetry Oxygen Delivery Method Oxygen Flow Rate Assessment and Plan Assessment and plan (1) Status post total right knee replacement: Problem details: - 03/28/24 Dr. Santos Status: Acute Assessment and Plan: Plan for discharge is today to home if they meet discharge criteria. DVT prophylaxis includes aspirin 81 mg twice daily x1 month, Compression stockings as needed for swelling. Frequent ambulation, every hour throughout the day. Remove dressing in 1 week. Observe wound and phone Orthopedics with any questions or concerns Return to clinic in 1 week for a wound check Return to clinic in 6 weeks with surgeon Minimize narcotic use. Wean off and discontinue soon as possible. Activities as tolerated. No strenuous activity. Outpatient physical therapy as scheduled. Ice and elevate the operative extremity. No restriction on ice. Patient would like compression stockings to take home. I will put an order in for these . She can wear them as needed for comfort and swelling.
--- NOTE | 2024-03-29 12:37 | PC.NURSE ---
AFEBRILE. DRESSING CDI. UP WITH SBA, WALKER AND GAIT BELT. REPORTS PAIN CONTROLLED WITH OXYCODONE AND TYLENOL. REVIEWED DC INSTRUCTIONS WITH PATIENT AND HER . SALINE LOCK DC'D. PATIENT DISCHARGED VIA WITH 2 ACTIVE ICE PACKS.
== END 2024-03-29 11:37 | disposition home or self-care (01) ==
LOC: OR 06:02 → MEDSURG 06:19
PROVIDERS: PCP Family Medicine; Visit Provider Orthopaedic Surgery
PROC: (CPT 27447; principal; 2024-03-28 07:30)
DX: M17.11 Unilateral primary osteoarthritis, right knee (principal); G89.18 Other acute postprocedural pain; R00.1 Bradycardia, unspecified; R60.0 Localized edema; I10 Essential (primary) hypertension; I51.81 Takotsubo syndrome; E03.9 Hypothyroidism, unspecified; K21.9 Gastro-esophageal reflux disease without esophagitis; J45.909 Unspecified asthma, uncomplicated; E78.5 Hyperlipidemia, unspecified
CPT/HCPCS: 27447; 01402; 36415; 64447; 64454; 73560; 76942; 82565; 84132; 84295; 84520; 85025; 85610; 97110; 97116; 97161; 97165; 97530; 97535; 99100; A9270; C1776; J0690; J1100; J1171; J2250; J2405; J2704; J3010; J7120

== ENCOUNTER 2024-04-03 03:33 | Emergency (ER) | payer MEDICARE, SELFPAY ==
[2024-04-03 03:37] VITALS: BP 125/76; PULSE 86; RESP 16; TEMP 36.3; O2SAT 97; BMI 27.3
--- NOTE | 2024-04-03 03:47 | ED_ITS ---
HPI - General Adult General Time Seen by Provider: 03:47 Date Seen: 04/03/24 Chief complaint: Extremity Pain/Injury, Lower Stated complaint: right leg possible clot Time Seen by Provider: 04/03/24 03:47 Source: patient, RN notes reviewed and old records reviewed Mode of arrival: ambulatory Limitations: no limitations History of Present Illness HPI narrative: 78-year-old female who is postop day 6 status post right knee replacement who presents today with pain and swelling of the leg. Patient had increased leg pain tonight, woke up and found that the leg was swollen and more bruised than previously. No new injury or increased activity that she can think of. Denies chest pain or shortness of breath. She is on aspirin only. Denies fever, chills, nausea, vomiting. Related Data Home Medications ?Medication ?Instructions ?Recorded ?Confirmed albuterol sulfate 90 mcg/actuation 2 inh inhalation Q4H PRN 05/15/22 03/28/24 aerosol inhaler atorvastatin 40 mg tablet 40 mg PO HS 05/15/22 03/28/24 levothyroxine 100 mcg tablet 100 mcg PO DAILY 05/15/22 03/28/24 mometasone-formoterol HFA 200 2 puff inhalation BID 05/15/22 03/28/24 mcg-5 mcg/actuation aerosol inhaler (Dulera) pantoprazole 20 mg tablet,delayed 20 mg PO DAILY 05/15/22 03/28/24 release aspirin 81 mg capsule 81 mg PO DAILY 01/17/23 03/28/24 metoprolol succinate 25 mg 25 mg PO DAILY 01/17/23 03/28/24 tablet,extended release 24 hr cholecalciferol (vitamin D3) 25 50 mcg PO DAILY 01/18/23 03/28/24 mcg (1,000 unit) capsule vitamin B complex (B 1 tab PO DAILY 01/18/23 03/28/24 Complex-Vitamin B12 tablet) escitalopram oxalate 10 mg tablet 10 mg PO DAILY 03/23/23 03/28/24 fluticasone propionate 50 1 spray intranasal DAILY PRN 03/23/23 03/28/24 mcg/actuation nasal spray,suspension (Flonase Allergy Relief) losartan 25 mg tablet 25 mg PO DAILY 12/20/23 03/28/24 meclizine 12.5 mg tablet 12.5 mg PO TID PRN nausea/vomiting 03/27/24 03/28/24 Previous Rx's ?Medication ?Instructions ?Recorded lorazepam 0.5 mg tablet 0.5 - 1 mg (1 - 2 x 0.5 mg) PO Q6H 01/18/23 PRN Anxiety #30 tabs acetaminophen 500 mg capsule 500 - 1,000 mg (1 - 2 x 500 mg) PO 03/28/24 Q6H PRN pain #100 caps aspirin 81 mg chewable tablet 81 mg PO BID for DVT prophylaxis 03/28/24 (Aspirin Childrens) 30 days #60 tabs oxycodone 5 mg tablet 2.5 - 5 mg (0.5 - 1 x 5 mg) PO 03/28/24 Q4-6H PRN Pain #42 tabs sennosides 8.6 mg tablet (Senna 17.2 mg (2 x 8.6 mg) PO BID PRN 03/28/24 Lax) constipation #100 tabs rivaroxaban 15 mg (42)-20 mg (9) See Rx Instructions PO .COMPLEX 04/03/24 tablets in a starter pack (Xarelto #51 ea DVT-PE Treatment 30-Day Starter) Allergies Allergy/AdvReac Type Severity Reaction Status Date / Time doxycycline Allergy Diarrhea Verified 03/27/24 08:21 Penicillins Allergy Anaphylaxis Verified 12/20/23 10:14 Sulfa (Sulfonamide Allergy Verified 03/27/24 08:21 Antibiotics) sulfamethoxazole Allergy Rash Verified 03/27/24 08:21 [From Bactrim] trimethoprim [From Bactrim] Allergy Rash Verified 03/27/24 08:21 RIAN Inhibitors AdvReac Cough Verified 12/20/23 10:14 PFSH PFS Medical History (Updated 04/03/24 @ 05:28 by Winston Lua MD) Takotsubo syndrome (~01/14/23) ?I51.81 - Takotsubo syndrome (ICD-10) Uterine endometriosis ?N80.00 - Endometriosis of the uterus, unspecified (ICD-10) Onychomycosis ?B35.1 - Tinea unguium (ICD-10) Non-ST elevated myocardial infarction (non-STEMI) (~01/14/23) ?I21.4 - Non-ST elevation (NSTEMI) myocardial infarction (ICD-10) Hypothyroidism ?E03.9 - Hypothyroidism, unspecified (ICD-10) GERD (gastroesophageal reflux disease) ?K21.9 - Gastro-esophageal reflux disease without esophagitis (ICD-10) Asthma ?J45.909 - Unspecified asthma, uncomplicated (ICD-10) Hyperlipidemia ?E78.5 - Hyperlipidemia, unspecified (ICD-10) Hypertension ?I10 - Essential (primary) hypertension (ICD-10) Surgical History (Updated 04/03/24 @ 05:28 by Winston Lua MD) 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/24) ?Z96.651 - Presence of right artificial knee joint (ICD-10) History of cataract extraction ?Z98.49 - Cataract extraction status, unspecified eye (ICD-10) Hx of colonoscopy ?Z98.890 - Other specified postprocedural states (ICD-10) Family History (Updated 12/20/23 @ 10:21 by Soni Riggins ~ [facility], [facility]) Sister Alzheimer's dementia Breast cancer Aunt Breast cancer Family/Other Breast cancer Mother Cardiovascular disease Osteoarthritis Father COPD (chronic obstructive pulmonary disease) Osteoarthritis Brother Osteoarthritis Social History (Reviewed 12/20/23 @ 10:20 by Soni Riggins ~ [facility], [facility]) Narrative: . Lives in a house with her . Denies tobacco, EtOH, recreational drug use. What is your current living situation?: I presently have a place to live Problems where you live: no known problems Problems where you live details: NA In the past 12 months, utilities in danger of being shut off: no In past 12 months, lack of transportation kept you from medical appts, meetings, work, or getting things needed for daily living: no In the past 12 mos, have been you worried that your food would run out before you had money to buy more?: never true In the past 12 mos, the food you bought just didn't last and you didn't have money to buy more?: never true Highest level of school completed/degree received: Bachelor's degree Smoking Status: Never smoker Do you use any of these nicotine containing products: None Second hand tobacco smoke exposure: No How often do you have a drink containing alcohol: never How often do you have six or more drinks on one occasion: Never AUDIT-C Alcohol total score: 0 Non-prescribed substance use: denies use Caffeine: Yes How often does anyone, including family, friends and others, physically hurt you : never How often does anyone, including family, friends and others, insult or talk down to you: never How often does anyone, including family, friends and others, threaten you with harm: never How often does anyone, including family, friends and others, scream or curse at you: never Are you using contraception or practicing any form of control: No service: No Exam Narrative: Exam Narrative: General: Well-developed and well-nourished, no acute distress Head: Atraumatic and normocephalic Eyes: Pupils are equal reactive, extraocular motions intact, conjunctiva clear ENT: External nose and ears are normal, posterior pharynx without erythema or exudate Neck: No midline cervical tenderness, full spontaneous range of motion the neck, trachea midline, no adenopathy Heart: Regular rate and rhythm no murmurs or thrills Lungs: Clear to auscultation bilaterally without wheezes or crackles Abdomen: Soft, nontender, nondistended with active bowel sounds Musculoskeletal: Marked bruising of the right anterior medial thigh, knee, and lower leg. Dressing is intact, no redness or warmth around the incision. No joint effusion. No swelling of the right thigh and lower leg. Neurologic: Awake, alert, and oriented x3, no gross focal neurologic deficits, cranial nerves intact as tested Psych: Mood and affect are appropriate Skin: No rashes Const: Vital Signs, click to edit/add: Vital Signs - 24 hr 04/03/24 03:37 Temperature 97.3 F L Pulse Rate [Left P ulse Oximeter] 86 Respiratory Rate 16 Blood Pressure [Ri ght Upper Arm] 125/76 Pulse Oximetry 97 Oxygen Delivery Me thod Room Air Course Course ED Course: Patient seen examined, reviewed most recent hospital admission from March 2024 which was for right total knee replacement, it appears uncomplicated, patient does use a walker, met discharge goals was discharged. Not currently on anticoagulation, is taking baby aspirin. Patient presents today with increased bruising, swelling, and pain and leg. Patient noted increased pain this evening, noticed increased bruising. No new injury. Denies chest pain or shortness of breath. On exam here, patient's vital is stable, she has bruising of the medial thigh and lower leg. No joint effusion, no pain with passive movement, I do not suspect septic joint at this time. There is an area of mild redness and warmth just medial to the dressing. Suspect patient may have a hematoma that ruptured or some blood that has not come the surface. However with increased swelling and pain, ultrasound is ordered to evaluate for DVT. Will also order CBC to evaluate for anemia. Reevaluation(s) Time of Reevaluation #1: 04:38 Reevaluation #1: Labs ordered and independently interpreted by me with hemoglobin 11.2 which is down from 12.1 postoperatively, normal white blood cell count. Time of Reevaluation #2: 05:26 Reevaluation #2: Discussed ultrasound with johan, DVT in the calf veins. Patient has no chest pain, shortness of breath, nose tachycardia hypoxia, no significant lightheaded or syncope to suggest pulmonary embolism. Patient will be started on Xarelto and follow up with primary care. Vital Signs Vital signs: Initial Vital Signs Temperature 97.3 F L 04/03/24 03:37 Temperature Source Temporal Artery Scan 04/03/24 03:37 Pulse Rate 86 04/03/24 03:37 Pulse Rhythm Regular 04/03/24 03:37 Respiratory Rate 16 04/03/24 03:37 Blood Pressure 125/76 04/03/24 03:37 Blood Pressure Mean 92 04/03/24 03:37 Blood Pressure Position Sitting 04/03/24 03:37 Pulse Oximetry 97 04/03/24 03:37 Oxygen Delivery Method Room Air 04/03/24 03:37 Vital Signs Temperature 97.3 F L 04/03/24 03:37 Pulse Rate 86 04/03/24 03:37 Respiratory Rate 16 04/03/24 03:37 Blood Pressure 125/76 04/03/24 03:37 Pulse Oximetry 97 04/03/24 03:37 Oxygen Delivery Method Room Air 04/03/24 03:37 Temperature 97.3 F L 04/03/24 03:37 Pulse Rate 86 04/03/24 03:37 Respiratory Rate 16 04/03/24 03:37 Blood Pressure 125/76 04/03/24 03:37 Pulse Oximetry 97 04/03/24 03:37 Oxygen Delivery Method Room Air 04/03/24 03:37 Medical Decision Making Lab Data Labs: Lab Results 04/03/24 Range/Units 04:15 WBC 7.98 (4.50-11.00) K/uL RBC 3.72 L (4.00-5.20) m/uL Hgb 11.2 L (12.0-16.0) gm/dL Hct 34.1 (33.0-51.0) % MCV 92 (80-100) fL MCH 30 (26-34) pg MCHC 33 (32-36) gm/dL RDW Coeff of Rosa 13.1 (11.5-15.5) % Plt Count 220 (140-440) K/uL Neut % (Auto) 62.8 (42.0-72.0) % Lymph % (Auto) 25.1 (20-44) % [place] % (Auto) 9.6 (0.0-11.0) % Eos % (Auto) 1.9 (0.0-7.0) % Baso % (Auto) 0.3 (0.0-3.0) % Neut # (Auto) 5.02 (1.7-7.0) K/uL Lymph # (Auto) 2.00 (0.90-2.90) K/uL [place] # (Auto) 0.80 (0.00-0.90) K/UL Eos # (Auto) 0.15 (0.00-0.50) K/uL Baso # (Auto) 0.02 (0.00-0.30) K/uL Abs Immat Gran (auto) 0.02 (0.00-0.30) K/uL Imm/Tot Granulo (auto) 0.3 % Sodium 134 L (135-149) mmol/L Potassium 3.4 L (3.6-5.1) mmol/L Chloride 102 (96-114) mmol/L Carbon Dioxide 24 (20-32) mmol/L Anion Gap 8 (7-15) mEq/L BUN 13 (7-30) mg/dL Creatinine 0.7 (0.5-1.5) mg/dL Estimated Creat Clear 49.24 Estimated GFR 89 ml/min Glucose 110 (60-115) mg/dL Calcium 8.6 (8.4-10.6) mg/dL Discharge Plan Discharge Clinical Impression: DVT of lower extremity (deep venous thrombosis), Status post total right knee replacement Patient Disposition: Home, Self-Care Condition: Stable Instructions: Deep Vein Thrombosis (ED), Blood Thinners (ED) Additional Instructions: Start anticoagulant therapy as prescribed Follow-up with your regular doctor this week Activity Level: Activity as Tolerated Discharge Diet: Regular Prescriptions: New Xarelto DVT-PE Treat 30d Start 15 mg (42)- 20 mg (9) tablets,dose pack See Rx Instructions .ROUTE .COMPLEX Qty: 51 0RF Rx Instructions: take one-15 mg tablet twice daily for 21 days, then one-20 mg tablet once daily; must take with meal/food No Action losartan 25 mg tablet 25 mg PO DAILY levothyroxine 100 mcg tablet 100 mcg PO DAILY atorvastatin 40 mg tablet 40 mg PO HS pantoprazole 20 mg tablet,delayed release (DR/EC) 20 mg PO DAILY Dulera 200-5 mcg/actuation HFA aerosol inhaler 2 puff inhalation BID Patient Comments: albuterol sulfate 90 mcg/actuation HFA aerosol inhaler 2 inh inhalation Q4H PRN metoprolol succinate 25 mg tablet extended release 24 hr 25 mg PO DAILY aspirin 81 mg capsule 81 mg PO DAILY Hold Instructions: Resume on 04/28/24. cholecalciferol (vitamin D3) 25 mcg (1,000 unit) capsule 50 mcg PO DAILY vitamin B complex [B Complex-Vitamin B12] Tablet 1 tab PO DAILY lorazepam 0.5 mg Tablet 0.5 - 1 mg PO Q6H PRN (Reason: Anxiety) Qty: 30 0RF meclizine 12.5 mg tablet 12.5 mg PO TID PRN (Reason: nausea/vomiting) sennosides [Senna Lax] 8.6 mg Tablet 17.2 mg PO BID PRN (Reason: constipation) Qty: 100 0RF aspirin [Aspirin Childrens] 81 mg tablet,chewable 81 mg PO BID 30 Days Qty: 60 0RF acetaminophen 500 mg capsule 500 - 1,000 mg PO Q6H MDD 4000mg per day PRN (Reason: pain) Qty: 100 0RF oxycodone 5 mg Tablet 2.5 - 5 mg PO Q4-6H MDD 6 tabs per day PRN (Reason: Pain) Qty: 42 0RF Rx Instructions: Minimize. Discontinue as soon as possible escitalopram oxalate 10 mg tablet 10 mg PO DAILY fluticasone propionate [Flonase Allergy Relief] 50 mcg/actuation spray,suspension 1 spray intranasal DAILY PRN Rx Instructions: administer into each nostril Follow Up/Referrals: Niall Long MD [Primary Care Provider] - Stand Alone Forms: [employer] Info Instructions
--- NOTE | 2024-04-03 04:00 | US_ITS ---
Patient: SANA HERNANDEZ Facility:?[facility] Patient ID:?[id number] Site Patient ID:?[id number]. Site :?[id number] Study:?US-Extremity Right LEV RT-04/03/2024 6:01:10 AM Ordering Physician:Bianka Montero Final Report: INDICATION: Leg pain and swelling. TECHNIQUE: Ultrasound venous duplex lower right extremity. Compression venous exam was performed using cox-scale, color Doppler, and spectral Doppler analysis. COMPARISON: None. FINDINGS: Deep veins: Sonographic imaging demonstrates the right common femoral, deep femoral, superficial femoral, and the contralateral right common femoral veins to be fully compressible with normal color Doppler blood flow. Superficial veins: Greater saphenous vein is fully compressible. There is thrombus within the popliteal, posterior tibial and peroneal veins with noncompressibility. No flow is identified on augmentation. IMPRESSION: Deep venous thrombosis in the popliteal, posterior tibial and peroneal veins. Mild subcutaneous edema of the right lower extremity. Dictated by Issac Lamas MD @ 04/03/2024 6:07:14 AM Signed by:?Issac Lamas MD @04/03/2024 6:07:14 AM (Electronic Signature)
[2024-04-03 04:34] LABS: Basophils Absolute Auto 0.02 K/uL (0.00-0.30); Basophils Percent Auto 0.3 % (0.0-3.0); Eosinophils Absolute Auto 0.15 K/uL (0.00-0.50); Eosinophils Percent Auto 1.9 % (0.0-7.0); Hematocrit 34.1 % (33.0-51.0); Hemoglobin* 11.2 gm/dL (12.0-16.0); Immature Granulocytes Abs Auto 0.02 K/uL (0.00-0.30); Immature Granulocytes Pct Auto 0.3 %; Lymphocytes Percent Auto 25.1 % (20-44); Mean Corpuscular HGB Conc 33 gm/dL (32-36); Mean Corpuscular Hemoglobin 30 pg (26-34); Mean Corpuscular Volume 92 fL (80-100); Monocytes Percent Auto 9.6 % (0.0-11.0); Neutrophils Absolute Auto 5.02 K/uL (1.7-7.0); Neutrophils Percent Auto 62.8 % (42.0-72.0); Platelet Count* 220 K/uL (140-440); RDW Coefficient of Variation % 13.1 % (11.5-15.5); Red Blood Count 3.72 m/uL (4.00-5.20); White Blood Count* 7.98 K/uL (4.50-11.00)
[2024-04-03 04:36] LABS: Slide Review Reflex No
--- OUTSIDE RECORDS SUMMARY | 2024-04-03 04:44 | XMS_ITS | Clinical Summary ---
Author Organization [employer] [facility] Address [place], [place] [address] Care Team Providers Care Ceramic Engineering Professor Name Role Phone Votel, Niall Solis MD [...] per actuation) nasal solution (FLONASE) Inhale 1 [place] into affected nostril(s) once daily if needed for Rhinitis. Active escitalopram oxalate (LEXAPRO) 10 mg tablet Take 10 mg by mouth once daily. 02/11/2023 Active cholecalciferol, Vitamin D3, 2,000 unit tabletIndications:[facility] Take 1 Tablet (2,000 [...] atorvastatin (LIPITOR) 40 mg tabletIndications:At herosclerosis [place] coronary artery of [place] heart with angina pectoris (HC) Take 1 [...] once daily. 90 Tablet 3 02/29/2024 Active ondansetron (ZOFRAN ODT) 4 mg disintegrating tabletIndications:Na usea and vomiting, unspecified vomiting type Place 1 Tablet (4 mg) on the tongue every 8 hours if needed for Nausea/Vomiting . 30 Tablet 02/04/2024 Discontinue d(*Patient states no longer taking) Active Problems Problem Noted Date Diagnosed Date Myocardial infarction 01/29/2023 NSTEMI (non-ST elevated myocardial infarction) 0 01/14/2023 Takotsubo cardiomyopathy 01/14/2023 HTN (hypertension) 01/14/2023 Onychomycosis 01/14/2023 Asthma 01/14/2023 GERD (gastroesophageal reflux disease) Nonischemic cardiomyopathy 07/18/2020 Assessment & Plan (11/18/2022 1:47 PM CDT): Sress Cardiomyopathy and this has resolved. Atherosclerosis of [place] co ronary artery of [place] heart with angina pectoris 07/18/2020 Encounters Date Type Department Care Team Description 03/28/2024 Orders Only [facility] Scanner 1 scan: (1-Ord) [place], KNEE RT 2V, 03/28/2024 03/14/2024 10:50 AM CDT Office Visit [facility] [address] [place] [address] Niall Long MD Preoperative Exam (03/28/24, Dr. Santos, [place] , rt knee) 03/14/2024 Travel 03/01/2024 Orders Only [facility] Scanner 1 scan: (1-Ord) [facility], INCISION WAS MADE FOLLOWING THE MOHS APPROACH THROUGH THE SKIN, 03/01/2024 02/29/2024 11:30 AM CDT Office Visit [facility] [id number] [place] [address] [address] [place] [address] Adrianne Ma MD Follow Up (ANNUAL GEN CARD FOLLOW UP PT DX:Takotsubo cardiomyopathy /Pt states feeling well today, no current cardiac symptoms at this time. Would like to discuss if she can d/c the aspirin. ) 02/29/2024 Travel 02/04/2024 1:25 PM CDT Office Visit [facility] [address] [place] [address] Maggi Ozuna, CITY SURVEYOR Lightheaded 02/04/2024 Travel from Last 3 Months [...] Procedure Name Priority Date/Time Associated Diagnosis Comments SCAN-RADIOLOGY REPORT 03/28/2024 12:00 AM CDT CBC WITH AUTO DIFFERENTIAL Routine 03/14/2024 12:05 PM CDT BASIC METABOLIC PANEL Routine 03/14/2024 12:05 PM CDT HTN (hypertension) SCAN-OPERATIVE/PROCED URE REPORT 03/01/2024 12:00 AM CDT XR DXA BONE DENSITY 2 SITES AXIAL Routine 07/25/2020 10:35 AM CLIMATE CHANGE RISK ASSESSOR Menopause from Last 3 Months or Most Recently Relevant to Health Maintenance Results * SCAN-RADIOLOGY REPORT (03/28/2024 12:00 AM CDT) Anatomical Region Laterality Modality Other Scanner OTHER * CBC WITH AUTO DIFFERENTIAL (03/14/2024 12:05 [...] 12:05 PM CDT Niall Long MD HEMATOLOGY [email or web address] [facility] [address] [place] [address], [facility] [address] [place] [address] * BASIC METABOLIC PANEL (03/14/2024 12:05 PM CDT) [facility] GLUCOSE 94 65 - 99 mg/dL [facility] Comment: ? Fasting reference interval UREA NITROGEN (BUN) 18 7 - 25 mg/dL [facility] CREATININE 0.86 0.60 - 1.00 mg/dL [facility] EGFR 70 > OR = [...] DIOXIDE 27 20 - 32 mmol/L [facility] ELECTROLYTE BALANCE 8 7 - 17 mmol/L (calc) [facility] CALCIUM 9.5 8.6 - 10.4 mg/dL [facility] Blood BLOOD SPECIMEN / Unknown 03/14/2024 12:05 PM CDT 03/14/2024 12:05 PM CDT Niall Long MD CHEMISTRY [email or web address] [facility] [address] [place] [address], [facility] [address] [place] [address] * SCAN-OPERATIVE/PROCEDURE REPORT (03/01/2024 12:00 AM CDT) Scanner OTHER * XR DXA BONE DENSITY 2 SITES AXIAL (07/25/2020 10:35 AM CLIMATE CHANGE RISK ASSESSOR) Anatomical Region Laterality Modality Spine, HIPS, HIPL, HIPR Other Impressions 07/31/2020 8:57 AM CLIMATE CHANGE RISK ASSESSOR Normal bone density. RECOMMENDATIONS: - The National [...] Janie Bryant PA-C Narrative 07/31/2020 8:57 AM CLIMATE CHANGE RISK ASSESSOR XR DXA Bone Mineral Density (BMD) EXAM LOCATION: [facility] [address] [facility] [address] PATIENT NAME: Carissa Bradley DATE OF : [...] two scanners are made by the same film and video graphics designer. PROCEDURE: Dual-energy x-ray absorptiometry performed with routine [...] Code Status Discussion: Reviewed Preferences Care Teams Ceramic Engineering Professor Relationship Specialty Start Date End Date Niall Long MD [address] [place] [address] PCP - General Family Practice 04/01/21
[2024-04-03 04:47] LABS: Chloride* 102 mmol/L (96-114); Potassium* 3.4 mmol/L (3.6-5.1); Sodium* 134 mmol/L (135-149)
[2024-04-03 04:50] LABS: Anion Gap 8 mEq/L (7-15); Blood Urea Nitrogen* 13 mg/dL (7-30); Calcium* 8.6 mg/dL (8.4-10.6); Carbon Dioxide* 24 mmol/L (20-32); Creatinine* 0.7 mg/dL (0.5-1.5); Est. Creatinine Clearance* 49.24; Estimated Glomerular Filt Rate 89 ml/min; Glucose* 110 mg/dL (60-115)
[2024-04-03 06:00] VITALS: BP 182/78; PULSE 64; RESP 16; TEMP 36.7; O2SAT 98
[2024-04-03] MEDS: RIVAROXABAN 10 MG TABLET 15 MG PO (06:08)
== END 2024-04-03 06:18 | disposition home or self-care (01) ==
PROVIDERS: Emergency Provider Family Medicine; PCP Family Medicine
DX: I82.5Z1 Chronic embolism and thrombosis of unspecified deep veins of right distal lower extremity (principal); Z96.651 Presence of right artificial knee joint
CPT/HCPCS: 36415; 80048; 85025; 93971; 99284; A9270

== ENCOUNTER 2024-04-24 13:41 | Emergency (ER) | payer MEDICARE, SELFPAY ==
[2024-04-24 13:49] VITALS: BP 132/56; PULSE 57; RESP 18; TEMP 36.4; O2SAT 97; BMI 26.7
--- NOTE | 2024-04-24 16:02 | CRLHL7_ITS ---
For Patients: As a result of the Century Cures Act, medical imaging exams and procedure reports are released immediately into your electronic medical record. You may view this report before your referring provider. If you have questions, please contact your health care provider. INDICATION: Arm Pain, swelling, redness, warmth, pain, on Xarelto TECHNIQUE: Ultrasound venous duplex right upper extremity. Real-time cox-scale (B mode 2D), color Doppler, and spectral Doppler imaging were performed with compression and augmentation. COMPARISON: None FINDINGS: Deep vein: The visualized right internal jugular, subclavian, brachial, and axillary veins are fully compressible, demonstrate normal color flow, and normal response to mechanical augmentation. The Duplex Doppler waveforms are normal in appearance. Superficial vein: The visualized cephalic and basilic veins are unremarkable. Soft tissue: No masses or cysts are identified. No adenopathy is seen. IMPRESSION: 1. No sonographic evidence of acute deep venous thrombosis seen. Dictated by: Hector Bean MD @ 04/24/2024 18:34:49 (Electronically Signed)
--- NOTE | 2024-04-24 16:03 | ED.GENADULT ---
HPI - General Adult General Chief complaint: Extremity Pain/Injury, Lower Stated complaint: Possible infection R leg Time Seen by Provider: 04/24/24 15:49 History of Present Illness HPI narrative: 79-year-old female comes in with pain, warmth, swelling, and some redness on the medial aspect of her right knee. She did have a total knee done about a month ago and secondarily developed a deep venous thrombus. She is currently taking Xarelto. She does not have any chest pain or shortness of breath. She comes in because of a couple days of these symptoms on the medial aspect of her right knee. She does not report any fevers. Related Data Home Medications ?Medication ?Instructions ?Recorded ?Confirmed albuterol sulfate 90 mcg/actuation 2 inh inhalation Q4H PRN 05/15/22 04/05/24 aerosol inhaler atorvastatin 40 mg tablet 40 mg PO HS 05/15/22 04/05/24 levothyroxine 100 mcg tablet 100 mcg PO DAILY 05/15/22 04/05/24 mometasone-formoterol HFA 200 2 puff inhalation BID 05/15/22 04/05/24 mcg-5 mcg/actuation aerosol inhaler (Dulera) pantoprazole 20 mg tablet,delayed 20 mg PO DAILY 05/15/22 04/05/24 release aspirin 81 mg capsule 81 mg PO DAILY 01/17/23 04/05/24 metoprolol succinate 25 mg 25 mg PO DAILY 01/17/23 04/05/24 tablet,extended release 24 hr cholecalciferol (vitamin D3) 25 50 mcg PO DAILY 01/18/23 04/05/24 mcg (1,000 unit) capsule vitamin B complex (B 1 tab PO DAILY 01/18/23 04/05/24 Complex-Vitamin B12 tablet) escitalopram oxalate 10 mg tablet 10 mg PO DAILY 03/23/23 04/05/24 fluticasone propionate 50 1 spray intranasal DAILY PRN 03/23/23 04/05/24 mcg/actuation nasal spray,suspension (Flonase Allergy Relief) losartan 25 mg tablet 25 mg PO DAILY 12/20/23 04/05/24 meclizine 12.5 mg tablet 12.5 mg PO TID PRN nausea/vomiting 03/27/24 04/05/24 Previous Rx's ?Medication ?Instructions ?Recorded lorazepam 0.5 mg tablet 0.5 - 1 mg (1 - 2 x 0.5 mg) PO Q6H 01/18/23 PRN Anxiety #30 tabs acetaminophen 500 mg capsule 500 - 1,000 mg (1 - 2 x 500 mg) PO 03/28/24 Q6H PRN pain #100 caps sennosides 8.6 mg tablet (Senna 17.2 mg (2 x 8.6 mg) PO BID PRN 03/28/24 Lax) constipation #100 tabs rivaroxaban 15 mg (42)-20 mg (9) See Rx Instructions PO .COMPLEX 04/03/24 tablets in a starter pack (Xarelto #51 ea DVT-PE Treatment 30-Day Starter) oxycodone 5 mg tablet 2.5 - 5 mg (0.5 - 1 x 5 mg) PO 04/05/24 Q4-6H PRN Pain #42 tabs cephalexin 500 mg capsule 500 mg PO TID 7 days #21 caps 04/24/24 Allergies Allergy/AdvReac Type Severity Reaction Status Date / Time doxycycline Allergy Diarrhea Verified 04/05/24 09:03 Penicillins Allergy Anaphylaxis Verified 04/05/24 09:03 Sulfa (Sulfonamide Allergy Verified 04/05/24 09:03 Antibiotics) sulfamethoxazole (From Allergy Rash Verified 04/05/24 09:03 Bactrim) trimethoprim (From Bactrim) Allergy Rash Verified 04/05/24 09:03 RIAN Inhibitors AdvReac Cough Verified 04/05/24 09:03 Review of Systems Status of ROS: Reports: 10 or more systems reviewed and unremarkable except as noted in History and below Narrative: Constitutional: No fevers, no weight gain or loss. Eyes: No discharge. No vision changes. HENT: No congestion, no sore throat, no ear pain. Cardiovascular: No chest pain, no palpitations. Respiratory: No shortness of breath, no wheezes, no cough. Gastrointestinal: No abdominal pain, no vomiting, no diarrhea. Genitourinary: No dysuria, no hematuria. Musculoskeletal: Increased pain, redness, swelling, and warmth on the medial aspect of the right knee. Skin: No rashes, no pruritis. Neurological: No dizziness, weakness, sensory change, speech change. Endo/Heme/Allergies: No bruising or bleeding. No polydipsia. Pysch: no suicidality, no anxiety, no insomnia. All other systems reviewed and are negative. [facility] Medical History (Updated 04/24/24 @ 17:37 by Burt Lee MD) Takotsubo syndrome (~01/14/23) ?I51.81 - Takotsubo syndrome (ICD-10) Uterine endometriosis ?N80.00 - Endometriosis of the uterus, unspecified (ICD-10) Onychomycosis ?B35.1 - Tinea unguium (ICD-10) Non-ST elevated myocardial infarction (non-STEMI) (~01/14/23) ?I21.4 - Non-ST elevation (NSTEMI) myocardial infarction (ICD-10) Hypothyroidism ?E03.9 - Hypothyroidism, unspecified (ICD-10) GERD (gastroesophageal reflux disease) ?K21.9 - Gastro-esophageal reflux disease without esophagitis (ICD-10) Asthma ?J45.909 - Unspecified asthma, uncomplicated (ICD-10) Hyperlipidemia ?E78.5 - Hyperlipidemia, unspecified (ICD-10) Hypertension ?I10 - Essential (primary) hypertension (ICD-10) Surgical History (Updated 04/03/24 @ 05:28 by Winston Lua MD) 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) Sister Alzheimer's dementia Breast cancer Aunt Breast cancer Family/Other Breast cancer Mother Cardiovascular disease Osteoarthritis Father COPD (chronic obstructive pulmonary disease) Osteoarthritis Brother Osteoarthritis Social History (Reviewed 12/20/23 @ 10:20 by Soni Riggins ~ [facility], [facility]) Narrative: . Lives in a house with her . Denies tobacco, EtOH, recreational drug use. What is your current living situation?: I presently have a place to live Problems where you live: no known problems Problems where you live details: NA In the past 12 months, utilities in danger of being shut off: no In the past 12 mos, have been you worried that your food would run out before you had money to buy more?: never true In the past 12 mos, the food you bought just didn't last and you didn't have money to buy more?: never true Highest level of school completed/degree received: Bachelor's degree Smoking Status: Never smoker Do you use any of these nicotine containing products: None Second hand tobacco smoke exposure: No How often do you have a drink containing alcohol: never How often do you have six or more drinks on one occasion: Never AUDIT-C Alcohol total score: 0 Non-prescribed substance use: denies use Caffeine: Yes How often does anyone, including family, friends and others, physically hurt you: never How often does anyone, including family, friends and others, insult or talk down to you: never How often does anyone, including family, friends and others, threaten you with harm: never How often does anyone, including family, friends and others, scream or curse at you: never Are you using contraception or practicing any form of control: No service: No Exam Narrative: Exam Narrative: Constitutional: Well-developed, well-nourished, no acute distress. HEENT: Normocephalic, atraumatic. Neck: Normal range of motion. Nontender. Supple. Heart: Regular. No murmurs. Normal rate. Intact distal pulses. Lungs: Clear to auscultation. No chest discomfort. No wheezes, rhonchi, or rales. Abdomen: Normal bowel sounds. Nontender. No rebound tenderness. Genitalia: Deferred. Back: No midline tenderness. Normal range of motion. Extremities: Right knee has a surgical scar from a total knee replacement. The surgical wound looks normal without any sign of infection or drainage. The medial aspect of this same knee has increased warmth, redness, swelling, and erythema more typical of a cellulitis. Skin: Intact. No rash. Warm. No erythema or pallor. Neurologic: No altered sensation. No weakness. Alert and oriented. Psychiatric: No suicidality. No anxiety or depression. No insomnia. Nursing notes and vitals signs are reviewed. Const: Vital Signs, click to edit/add: Vital Signs - 24 hr 04/24/24 13:49 Temperature 97.5 F L Pulse Rate [Pulse Oximeter] 57 L Respiratory Rate 18 Blood Pressure [Ri ght Upper Arm] 132/56 L Pulse Oximetry 97 Oxygen Delivery Me thod Room Air Course Vital Signs Vital signs: Initial Vital Signs Temperature 97.5 F L 04/24/24 13:49 Temperature Source Temporal Artery Scan 04/24/24 13:49 Pulse Rate 57 L 04/24/24 13:49 Respiratory Rate 18 04/24/24 13:49 Blood Pressure 132/56 L 04/24/24 13:49 Blood Pressure Mean 81 04/24/24 13:49 Pulse Oximetry 97 04/24/24 13:49 Oxygen Delivery Method Room Air 04/24/24 13:49 Vital Signs Temperature 97.5 F L 04/24/24 13:49 Pulse Rate 57 L 04/24/24 13:49 Respiratory Rate 18 04/24/24 13:49 Blood Pressure 132/56 L 04/24/24 13:49 Pulse Oximetry 97 04/24/24 13:49 Oxygen Delivery Method Room Air 04/24/24 13:49 Temperature 97.5 F L 04/24/24 13:49 Pulse Rate 57 L 04/24/24 13:49 Respiratory Rate 18 04/24/24 13:49 Blood Pressure 132/56 L 04/24/24 13:49 Pulse Oximetry 97 04/24/24 13:49 Oxygen Delivery Method Room Air 04/24/24 13:49 Medical Decision Making MDM Narrative Medical decision making narrative: This patient comes in with report of redness and warmth and discomfort on the medial aspect of her right knee. This is the same knee that underwent a total knee replacement about a month ago. She is currently taking Xarelto because there was a blood clot that developed afterwards. An ultrasound is obtained today and shows no evidence of deep venous thrombosis. Her symptoms are likely due to a cellulitis. This does not appear to involve the surgical wound and is not involving the joint as she has normal range of motion status post surgery. She is okay to be discharged home. I did provide prescription for Keflex. Discharge Plan Discharge Clinical Impression: Cellulitis Additional Instructions: Take medication as prescribed. Follow up with MD or return if worsening symptoms occur. Prescriptions: New cephalexin 500 mg capsule 500 mg PO TID 7 Days Qty: 21 0RF No Action losartan 25 mg tablet 25 mg PO DAILY oxycodone 5 mg tablet 2.5 - 5 mg PO Q4-6H MDD 6 tabs per day PRN (Reason: Pain) Qty: 42 0RF Rx Instructions: Minimize. Discontinue as soon as possible levothyroxine 100 mcg tablet 100 mcg PO DAILY atorvastatin 40 mg tablet 40 mg PO HS pantoprazole 20 mg tablet,delayed release (DR/EC) 20 mg PO DAILY Dulera 200-5 mcg/actuation HFA aerosol inhaler 2 puff inhalation BID Patient Comments: albuterol sulfate 90 mcg/actuation HFA aerosol inhaler 2 inh inhalation Q4H PRN metoprolol succinate 25 mg tablet extended release 24 hr 25 mg PO DAILY aspirin 81 mg capsule 81 mg PO DAILY cholecalciferol (vitamin D3) 25 mcg (1,000 unit) capsule 50 mcg PO DAILY vitamin B complex [B Complex-Vitamin B12] Tablet 1 tab PO DAILY lorazepam 0.5 mg Tablet 0.5 - 1 mg PO Q6H PRN (Reason: Anxiety) Qty: 30 0RF meclizine 12.5 mg tablet 12.5 mg PO TID PRN (Reason: nausea/vomiting) sennosides [Senna Lax] 8.6 mg Tablet 17.2 mg PO BID PRN (Reason: constipation) Qty: 100 0RF acetaminophen 500 mg capsule 500 - 1,000 mg PO Q6H MDD 4000mg per day PRN (Reason: pain) Qty: 100 0RF escitalopram oxalate 10 mg tablet 10 mg PO DAILY fluticasone propionate [Flonase Allergy Relief] 50 mcg/actuation spray,suspension 1 spray intranasal DAILY PRN Rx Instructions: administer into each nostril Xarelto DVT-PE Treat 30d Start 15 mg (42)- 20 mg (9) tablets,dose pack See Rx Instructions .ROUTE .COMPLEX Qty: 51 0RF Rx Instructions: take one-15 mg tablet twice daily for 21 days, then one-20 mg tablet once daily; must take with meal/food Follow Up/Referrals: Niall Long MD [Primary Care Provider] - Stand Alone Forms: [employer] Info Instructions
--- OUTSIDE RECORDS SUMMARY | 2024-04-24 16:08 | XMS_ITS | Clinical Summary ---
Author Organization [employer] [facility] Address [place], [place] [address] Care Team Providers Care Valve Setter Name Role Phone Votel, Niall Solis MD [...] per actuation) nasal solution (FLONASE) Inhale 1 [place] into affected nostril(s) once daily if needed for Rhinitis. Active escitalopram oxalate (LEXAPRO) 10 mg tablet Take 10 mg by mouth once daily. 02/11/2023 Active cholecalciferol, Vitamin D3, 2,000 unit tabletIndications:[facility] entative health care Take 1 Tablet (2,000 units) by mouth once daily. 0 03/08/2023 Active albuterol HFA (ProAir HFA) 90 mcg/actuation inhalerIndications:Mil d persistent asthma without complication Inhale 1-2 puffs by mouth every 4 hours if needed for Shortness of Breath 1st choice or Wheezing 2nd choice 1 Each 09/11/2023 Active pantoprazole (PROTONIX) 20 mg tabletIndications:Emergency Planning And Response Manager garima GERD Take 1 Tablet (20 mg) by mouth once daily. 90 Tablet 3 11/16/2023 Active mometasone-formoterol (DULERA) 200-5 mcg/actuation inhalerIndications:Mod erate persistent asthma, unspecified whether complicated Inhale 2 Puffs by mouth two times daily. 39 g 3 11/16/2023 Active levothyroxine (SYNTHROID) 100 mcg tabletIndications:Hypo thyroidism, unspecified type Take 1 Tablet (100 mcg) by mouth once daily. 90 Tablet 3 11/16/2023 Active meclizine (ANTIVERT) 12.5 mg tabletIndications:Naus ea and vomiting, unspecified vomiting type,Dizziness Take 1 Tablet (12.5 mg) by mouth 3 times daily if needed for Nausea/Vomiting (take 12.5 mg - 25 mg). 30 Tablet 02/04/2024 Active ascorbic acid, vitamin C, (Vitamin C) 1,000 mg tablet Take 1,000 mg by mouth once daily. Active atorvastatin (LIPITOR) 40 mg tabletIndications:Athe rosclerosis of [place] coronary artery of [place] heart with angina pectoris (HC) Take 1 Tablet (40 mg) by mouth at bedtime. 90 Tablet 3 02/29/2024 Active losartan (COZAAR) 25 mg tabletIndications:Tako tsubo cardiomyopathy Take 1 Tablet (25 mg) by mouth once daily. 90 Tablet 3 02/29/2024 Active metoprolol succinate (Toprol XL) 25 mg Sustained-Release tabletIndications:HTN (hypertension) Take 1 Tablet (25 mg) by mouth once daily. 90 Tablet 3 02/29/2024 Active oxyCODONE (ROXICODONE) 5 mg immediate release tablet 04/11/2024 Active Xarelto 15 mg tab tablet TAKE ONE TABLET BY MOUTH TWICE DAILY FOR 21 DAYS then increase to 20mg prescription.* 04/03/2024 Active rivaroxaban (XARELTO) 20 mg tabletIndications:deep venous thrombosis Take one tablet daily to complete 12 weeks of treatment for deep vein thrombosis. 30 Tablet 2 04/18/2024 Active Active Problems Problem Noted Date Diagnosed Date Myocardial infarction 01/29/2023 NSTEMI (non-ST elevated myocardial infarction) 0 01/14/2023 Takotsubo cardiomyopathy 01/14/2023 HTN (hypertension) 01/14/2023 Onychomycosis 01/14/2023 Asthma 01/14/2023 GERD (gastroesophageal reflux disease) Nonischemic cardiomyopathy 07/18/2020 Assessment & Plan (11/18/2022 1:47 PM CDT): Sress Cardiomyopathy and this has resolved. Atherosclerosis of [place] co ronary artery of [place] heart with angina pectoris 07/18/2020 Encounters Date Type Department Care Team Description 04/24/2024 Nurse Triage [facility] [place] [address] [place] [address] Niall Long MD Leg Swelling 04/12/2024 1:15 PM CDT Office Visit [facility] [place] [address] [place] [address] Niall Long MD ER Follow up (04/03/24, [place] rt knee pain, swollen, DVT, surgery 03/28/24); Immunization/Injection 04/12/2024 Travel 04/03/2024 Orders Only [facility] Scanner 1 scan: (1-Ord) [facility]OUS LE RT, 04/03/2024 03/28/2024 Orders Only [facility] Scanner 1 scan: (1-Ord) [place], KNEE RT 2V, 03/28/2024 03/14/2024 10:50 AM CDT Office Visit [facility] [place] [address] [place] [address] Niall Long MD Preoperative Exam (03/28/24, Dr. Santos, ld , rt knee) 03/14/2024 Travel 03/01/2024 Orders Only [facility] Scanner 1 scan: (1-Ord) [facility], INCISION WAS MADE FOLLOWING THE MOHS APPROACH THROUGH THE SKIN, 03/01/2024 02/29/2024 11:30 AM CDT Office Visit [address] [place] [address] de Briana Berna, Clerio Balta, MD Follow Up (ANNUAL GEN CARD FOLLOW UP PT DX:Takotsubo cardiomyopathy /Pt states feeling well today, no current cardiac symptoms at this time. Would like to discuss if she can d/c the aspirin. ) 02/29/2024 Travel 02/04/2024 1:25 PM CDT Office Visit [facility] [address] [place] [address] Maggi Ozuna, BELT LOOP MAKER Lightheaded 02/04/2024 Travel from Last 3 Months [...] AIIV4 (Age 65+ Years) Preserv Free 03/01/2023,04/09/2021 Influenza, Inactivated IIV3 (Age 65+ Years) Preserv Free 04/12/2024 Pneumococcal Poly,23-Valent (Pneumovax) 07/13/2013,04/20/2005 Pneumococcal conj 13-Valent [...] 0 11/18/2022 Social Connections Answer Date Recorded Do you often feel lonely or isolated from those around you? 0 02/04/2024 Financial Resource Strain Answer Date R ecorded Difficulty of Paying Living Expenses 3 02/04/2024 Difficulty of Paying Living Expenses Not on file 02/04/2024 Food Insecurity Answer Date Recorded Do you worry your food will run out before you are able to buy more? 1 02/04/2024 Transportation Needs Answer Date Record ed Does lack of transportation keep you from medica l appointments? 1 02/04/2024 Does lack of transportation keep you from work, meetings or getting things that you need? 1 02/04/2024 Housing Stability Answer Date Recorded What is your housing situation today? 1 02/04/2024 Sex and Gender Information Value Date Recorded Sex Assigned at Not on file Gender Identity Not on file Sexual Orientation Not on file Obstetrics History Last Filed Vital Signs Vital Sign Reading Time Taken Comments Blood Pressure 101/66 04/12/2024 1:17 PM CDT Pulse 64 04/12/2024 1:17 PM CDT Temperature 37 ??C (98.6 ??F) 04/12/2024 1:17 PM CDT Respiratory Rate 19 02/04/2024 1:28 PM CDT Oxygen Saturation 96% 04/12/2024 1:17 PM CDT Inhaled Oxygen Concentration - - Weight 85.1 kg (187 lb 11.2 oz) 04/12/2024 1:17 PM CDT Height 172.7 cm (5' 8) 04/12/2024 1:17 PM CDT Body Mass Index 28.54 04/12/2024 1:17 PM CDT Plan of Treatment Health Maintenance Due [...] series ( season) 2024 05/20/2021, 08/27/2020, 07/30/2020 BMI (ht and wt on same day) for age 18+ 04/12/2025 04/12/2024, 03/14/2024, 02/29/2024, Additional history exists Tdap Completed 07/13/2013 Pneumococcal series for age 65+ Completed 05/02/2015, 07/13/2013, 04/20/2005 DEXA/DXA scan for age 65+ Completed 07/25/2020 Influenza for age 65+ Completed 04/12/2024 , 03/01/2023, 04/27/2022, Additional history exists Procedures Procedure Name Priority Date/Time Associated Diagnosis Comments SCAN-ULTRASOUND REPORT 04/03/2024 12:00 AM CDT SCAN-RADIOLOGY REPORT 03/28/2024 12:00 AM CDT CBC WITH AUTO DIFFERENTIAL Routine 03/14/2024 12:05 PM CDT BASIC METABOLIC PANEL Routine 03/14/2024 12:05 PM CDT HTN (hypertension) SCAN-OPERATIVE/PROCED URE REPORT 03/01/2024 12:00 AM CDT XR DXA BONE DENSITY 2 SITES AXIAL Routine 07/25/2020 10:35 AM PENETRATION TESTER Menopause from Last 3 Months or Most Recently Relevant to Health Maintenance Results * SCAN-ULTRASOUND REPORT (04/03/2024 12:00 AM CDT) Anatomical Region Laterality Modality Other Scanner OTHER * SCAN-RADIOLOGY REPORT (03/28/2024 12:00 AM CDT) [...] 12:05 PM CDT Niall Long MD HEMATOLOGY [facility] [address] [place] [address], [facility] [address] [place] [address] * BASIC METABOLIC PANEL (03/14/2024 12:05 PM CDT) Pathologist [facility] GLUCOSE 94 65 - 99 mg/dL [facility] Comment: ? Fasting reference interval UREA NITROGEN (BUN) 18 7 - 25 mg/dL [facility] CREATININE 0.86 0.60 - 1.00 mg/dL [facility] EGFR 70 > OR = [...] 98 - 110 mmol/L [facility] CARBON DIOXIDE 27 20 - 32 mmol/L [facility] ELECTROLYTE BALANCE 8 7 - 17 mmol/L (calc) [facility] CALCIUM 9.5 8.6 - 10.4 mg/dL [facility] Blood BLOOD SPECIMEN / Unknown 03/14/2024 12:05 PM CDT 03/14/2024 12:05 PM CDT Niall Long MD CHEMISTRY [facility] [address] [place] [address], [facility] [address] [place] [address] * SCAN-OPERATIVE/PROCEDURE REPORT (03/01/2024 12:00 AM CDT) Scanner OTHER * XR DXA BONE DENSITY 2 SITES AXIAL (07/25/2020 10:35 AM PENETRATION TESTER) Anatomical Region Laterality Modality Spine, HIPS, HIPL, HIPR Other Impressions 07/31/2020 8:57 AM PENETRATION TESTER Normal bone density. RECOMMENDATIONS: - The National [...] Janie Bryant PA-C Narrative 07/31/2020 8:57 AM PENETRATION TESTER XR DXA Bone Mineral Density (BMD) EXAM LOCATION: [address] [address] PATIENT NAME: Carissa Bradley DATE OF : [...] two scanners are made by the same chief operator hydroformer. PROCEDURE: Dual-energy x-ray absorptiometry performed with routine [...] Code Status Discussion: Reviewed Preferences Care Teams Valve Setter Relationship Specialty Start Date End Date Votel, Niall Solis MD [address] [place] [address] PCP - General Family Practice 04/01/21
[2024-04-24 17:46] VITALS: BP 132/56; PULSE 57; RESP 18; TEMP 36.4
== END 2024-04-24 17:47 | disposition home or self-care (01) ==
PROVIDERS: Emergency Provider Emergency Medicine Emergency Medical Services; PCP Family Medicine
DX: L03.115 Cellulitis of right lower limb (principal); M79.661 Pain in right lower leg
CPT/HCPCS: 93971; 99283; 99284

== ENCOUNTER 2024-05-26 08:15 | Outpatient (RCR) | payer MEDICARE, SELFPAY ==
--- NOTE | 2024-03-21 11:56 | PT.OPEX ---
PT [place] Outpatient Eval PT [facility] Outpatient Eval Start: 03/21/24 06:43 Freq: Status: Active Protocol: Document 03/21/24 11:35 HLA (Rec: 03/21/24 11:46 HLA [id number]) E-signed By Yanci Huang, PT, DPT Physical Therapy Outpatient Evaluation Insurance Information Insurance Name Medicare B,[employer] Medical Diagnosis R TKA Treating Diagnosis weakness R knee, knee pain, difficulty ambulating, weakness Referring MD Santos Subjective Preferred Name Hemalatha Subjective Pt reports pain, crepitus R knee, difficulty ambulating, stairs step to pattern. Feels ready to have her knee replaced. 1st joint. Pain Comments pain R knee, sensitive with end range ext and flex Date of Last Physician Visit 03/14/24 Date of Surgery (If applicable) 03/28/24 Current Work Status Retired Precautions Weight Bearing Status Full Weight Bearing Therapy Limitations/Systems Review Not Limited Objective Range of Motion R knee 0-120 degrees flex, pain with end range ext, otherwise WNL UES/LES Strength strength 4/5 R knee, 4/5 hips, L knee 4+/5 otherwise WNL Swelling no edema present today Palpation pain palpation joint line Balance & Gait antalgic R LE, some arm spread , amb up to 1 mile at home, step to on stairs, held railing. Does tend to move somewhat sideways on stairs. Balance functional Posture slightly rounded thoracic spine, slightly fwd head Sensation/Reflexes sensation intact feet and hands. Functional Test Performed & Score LEFS 33/80 Assessment Assessment/Impression 78 year old female is undergoing her first joint replacement, R TKA, on with Dr. Santos at [facility]. Pt is ind at baseline in ADLS, amb no device, drives. Lives with spouse in 2 story home, 2 step entry (no railing). She owns a 4ww and std walker but hasn' t used them. Pt presents with some hip and quad weakness, R > L. Knee ROM 0-120 R knee. She transfers mod ind, some difficulty rising to stand off of low surfaces and uses lift chair. Pt amb with antalgic gt, does appear safe, no concerns other than mild arm spread. Pt was instructed in TKA ex, transfers, gt with walker, stairs, fall prevention today, post TKA PT in hospital and OP PT progression. I did recommend a toilet safety frame and shower chair with grab bar as she has some difficulty rising to stand. Overall, pt should do well in PT after surgery, will return for OP PT to progress ROM, strength, transfers, gt and stairs, goal to return to ind amb no device community distances. Primary Functional Limitations Crepitus, pain R knee. Plan of Care Physical Therapy Goals 1. Within this session: Pt will verbalize understanding of pre-op/post-op safety, mobility and exercises with home program issued and pt returning for ongoing therapy after TKA replacement. Within 10-12 weeks: 1. Pt will have knee AROM 0- 120 degrees for transfers, ADLs, and stairs independence. 2. Pt will amb 20 min with se cane or no device as indicated, safely and independently for community and household ambulation. 3. Pt will be independent in home ex program for long term care administrator pain management and to promote independence and to decrease fall risk. 4. Pt will ascend/descend 13 stairs with railing independently for community mobility. 5. Pt to have improvement LEFS score of 20% by end of episode of care. Treatment Plan/Direct Interventions Gait Training,Ice/Cold/ Vasopneumatic,Joint Mobilization,Manual Therapy, Neuromuscular Re-ed,Orthotics/ Braces,Self-Care/Home Management,Therapeutic Activities,Therapeutic Exercises Patient Will Be Discharged From Therapy Completion of LTG(s),Skills Plateau,Independent w/HEP, Independently Progressing Evaluation Billing Untimed Code Treatment Minutes 13 PT Eval No Charge No Complexity Low Certification Information Initial Certification Date 03/21/24 Ending Certification Date 06/19/24 Provider Signature Required Yes Provider Signature Shows Agreement With POC & Medical Necessity Physician NPI Number Write NPI# Here Physician Comment/Change : Physician Signature & Date Requested Please Sign/Date Here
== END 2024-09-23 23:59 | disposition home or self-care (01) ==
PROVIDERS: PCP Family Medicine; Visit Provider Orthopaedic Surgery
DX: M17.11 Unilateral primary osteoarthritis, right knee (principal); Z96.651 Presence of right artificial knee joint; Z51.89 Encounter for other specified aftercare
CPT/HCPCS: 97110; 97112; 97116; 97140; 97161; 97164; 97530

== ENCOUNTER 2024-06-23 03:39 | Emergency (ER) | payer MEDICARE, SELFPAY ==
--- OUTSIDE RECORDS SUMMARY | 2024-06-23 03:41 | XMS_ITS | Continuity of Care Document ---
Author Name [facility] User [email or web address] Address Unknown Organization Unknown Address Unknown Procedures FILTER APPLIED:Only known Procedures with Onset Date within the last 5 years Procedure Date Procedure Provider Additional Inform ation Status X-RAY EXAM OF LOWER LEG (63525) Completed X-RAY EXAM OF KNEE 3 (01119) Completed EMERGENCY DEPT VISIT LOW MDM (56243) Completed ANESTH LENS SURGERY (79569) Completed ANES PT EXTEME AGE<1 YR >70 (22413) Completed XCAPSL CTRC RMVL INSJ IO LENS PROSTH W/O ECP (96866) Completed ANES PT EXTEME AGE<1 YR >70 (80488) Completed ANESTH LENS SURGERY (36571) Completed XCAPSL CTRC RMVL INSJ IO LENS PROSTH W/O ECP (54001) Completed Encounters FILTER APPLIED:Only known Encounters with Admission Date within the last 5 years Encounter Location Admission Discharge Billing Code Headliner Installer Galina kebede Outpatient [facility] Out[facility] Emergency Genesis Mendoza
--- OUTSIDE RECORDS SUMMARY | 2024-06-23 03:42 | XMS_ITS | Encounter Summary ---
Author Organization [facility] Address [address] [place] [address] Care Team Providers Care Director Digital Name Role Phone Danni Ceja MD Primary Care Provider [phone] Phoebe Fernandez MD Unavailable Juan Camejo MD Unavailable [phone] Juan C Patel DO Unavailable Danni Ceja MD Unavailable [phone] Danni Ceja MD Unavailable [phone] Encounter Details Date Type Department Care Team (Late st Contact Info) Description 09/25/2014 Records - [facility] CONVERSION Scan, Non-Provider Social History Tobacco Use Types Packs/Day Years Used Date Smoking Tobacco: Never Assessed Comments Unknown Sex and Gender Information Value Date Recorded Sex Assigned at Not on file 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 Gender Identity Not on file Sexual Orientation Not on file documented as of this encounter Plan of Treatment Not on file documented as of this encounter Visit Diagnoses Not on filedocumented in this encounter Care Teams Director Digital Relationship Specialty Start Date End Date Danni Ceja MD PCP - General Internal Medicine 11/09/18 Phoebe Fernandez MD [address] [facility] [address] [place] [address] Assigned Heart and Vascular Provider 04/05/20 05/18/20 Juan Camejo MD [address] [facility] [address] [place] [address] Assigned Heart and Vascular Provider 12/27/20 01/25/21 Juan C Patel DO [address] [facility] [address] [place] [address] Assigned PCP 11/27/20 06/05/22 Danni Ceja MD [address] [facility] [address] [place] [address] Assigned PCP 06/06/22 07/24/22 Danni Ceja MD [address] [facility] [address] [place] [address] Assigned PCP 07/25/22 10/04/22 documented as of this encounter
--- OUTSIDE RECORDS SUMMARY | 2024-06-23 03:42 | XMS_ITS | Encounter Summary ---
Author Organization [place] Address [address] [facility] 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 Social History Tobacco Use Types Packs/Day Years Used Date Smoking Tobacco: Never Assessed Comments Unknown Sex and Gender Information Value Date Recorded Sex Assigned at Not on file Legal Sex Female 4:52 AM IN HOME NANNY Gender Identity Not on file Sexual Orientation Not on file documented as of this encounter Progress Notes * Cameron Biggs - 09/25/2014 12:40 PM CDT VNUS Radiofrequency Ablation Pre-Procedure: Admit [x]Consent for Radio Frequency Ablation of the []Right Saphenous Vein and/or branches [x]Left Saphenous Vein and/or branches Vitals [x]Vital signs per routine Nursing Orders [x]Vein Mapping of []R extremity [x]L extremity [x]Sterile Prep to extremity [x]Obtain Tumescent Solution 500mL (NS 1000mL, 1% Lidocaine w Epi 56mL, 8.4% Sodium Bicarbonate 5.6mL) Medications []Diazepam (Valium) 5mg PO, May Repeat x 1 for anxiety, relaxtion. Post-Procedure: Admission []Post Procedure care - call physician for status update []Admit to inpatient - Please document reason for admission in chart Interventions require inpatient services High risk of deterioration due to comorbidities High risk of deterioration due to nature of admitting diagnosis Location: Vitals [x]Vital signs per routine Nursing Orders [x]Thigh High Compression Stocking 20-30mm or 30-40mm to []R extremity [x]L extremity [x]Check insertion site for bleeding or hematoma. If bleeding or hematoma occurs, apply pressure and notify MD Discharge [x]Discharge home if no complications arise. [x]Give post radiofrequency ablation discharge instructions to patient. [x]Follow up venous ultrasound 72-96 hours after procedure. [x]Follow up appointment with MD at 2 weeks. 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 Symptomatic varicose veins. 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 Symptomatic varicose veins. PROCEDURE: Radiofrequency ablation of the Left Greater Saphenous Vein. SURGEON: Cameron Biggs ANESTHESIA: Local, local 1% lidocaine 10 mL and 0.1% lidocaine 6 mL. REPLACEMENTS: none COMPLICATIONS: none FINDINGS: A vein that is initially closed. INDICATIONS: We discussed doing a closure procedure. The risks of anesthesia, infection bleeding, clotting, DVTs and not closing we discussed and she wishes to proceed. DESCRIPTION OF PROCEDURE: Consent was obtained. she was taken to the operating room and placed in the supine position. she leg was prepped and draped in a sterile manner. Lidocaine 1% was used as a local anesthetic infused into the area of access. We then used Seldinger Technique and ultrasound guidance to gain access to the vein with a needle and a wire. Over the wire a 7-Sudanese introducer was placed. Through this introducer a 7-Sudanese VNUS Closure Fast-Cath was passed up to the Saphenofemoraljunction and pulled distal 2.5cm. Upon completion of this we then used ultrasound guidance to tumesce the vein using 0.1% lidocaine causing the vein to collapse around itself but also for local anesthetic effect. Upon completion of this we then at this time point placed the patient in the Trendelenburg position and the generator was set at a maximum power of 40 short, temperature 120 degrees Celsius and each 7cm segment was treated for 20 seconds. Upon completion the introducer and the catheterwere removed. The patient's leg was cleaned up and placed in a stocking. He was transferred to homein the care of a family member. Cameron Biggs MD [facility] Surgery Dept. * Archie Rodriguez I - 09/25/2014 12:13 PM CDT PREPROCEDURE: Patient arrived at 12:00 to undergo left GSV radiofrequency ablation. VSS (see vital signs section). Pt's id confirmed, allergies, site and consent verified. Procedure and discharge instructions werereviewed and given to the patient. All questions were answered. Pt was alert and oriented. Pt's skin and sensory are intact. Musculoskeletal is intact and no problems, Psychosocial pt is calm. Pain rated at a 0 at start of procedure. Pt verbalized understanding and level of comfort was good. Intra-Procedure: Sterile prep was done with chorhexidine.. Patient in supine position with a pillow. Patient took 5mg po Valium. 500ml of Tumescent (per formula) used during procedure. Start time: 1245. End time: 1315 POST PROCEDURE: VSS (note vitals signs) Procedure was done using aseptic technique, Pain was 0 Skin WNL Dressing applied to incision and thigh high stocking applied. Family notified of pts status. Pt ambulatory and discharged in stable condition in care of her . Discharge instructions sent with patient. 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 Symptomatic varicose veins. 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 Symptomatic varicose veins. PROCEDURE: Radiofrequency ablation of the Left Greater Saphenous Vein. SURGEON: Cameron Biggs ANESTHESIA: Local, local 1% lidocaine 10 mL and 0.1% lidocaine 6 mL. REPLACEMENTS: none Drains: none Specimen: none EBL < 5 ml COMPLICATIONS: none FINDINGS: A vein that is initially closed. INDICATIONS: We discussed doing a closure procedure. The risks of anesthesia, infection bleeding, clotting, DVTs and not closing we discussed and she wishes to proceed. DESCRIPTION OF PROCEDURE: Consent was obtained. she was taken to the operating room and placed in the supine position. she leg was prepped and draped in a sterile manner. Lidocaine 1% was used as a local anesthetic infused into the area of access. We then used Seldinger Technique and ultrasound guidance to gain access to the vein with a needle and a wire. Over the wire a 7-Sudanese introducer was placed. Through this introducer a 7-Sudanese VNUS Closure Fast-Cath was passed up to the Saphenofemoral junction and pulled distal 2.5cm. Upon completion of this we then used ultrasound guidance to tumesce the vein using 0.1% lidocaine causing the vein to collapse around itself but also for local anesthetic effect. Upon completion of this we then at this time point placed the patient in the Trendelenburg position and the generator was set at a maximum power of 40 short, temperature 120 degrees Celsius and each 7cm segment was treated for 20 seconds. Upon completion the introducer and the catheter were removed. The patient's leg was cleaned up and placed in a stocking. He was transferred to home in the care of a family member. Cameron Biggs MD [facility] Surgery Dept. Procedure Note Kalyan Cameron L - 11/16/2020 PREOPERATIVE DIAGNOSIS: Insufficiency reflux of the Left Greater SaphenousVein. Symptomatic varicose veins. POSTOPERATIVE DIAGNOSIS: Insufficiency reflux of the Left GreaterSaphenous Vein. Symptomatic varicose veins. PROCEDURE: Radiofrequency ablation of the Left Greater Saphenous Vein. SURGEON: Cameron Biggs ANESTHESIA: Local, local 1% lidocaine 10 mL and 0.1% lidocaine 6 mL. REPLACEMENTS: none Drains: none Specimen: none EBL < 5 ml COMPLICATIONS: none FINDINGS: A vein that is initially closed. INDICATIONS: We discussed doing a closure procedure. The risks ofanesthesia, infection bleeding, clotting, DVTs and not closing wediscussed and she wishes to proceed. DESCRIPTION OF PROCEDURE: Consent was obtained. she was taken to theoperating room and placed in the supine position. she leg was prepped anddraped in a sterile manner. Lidocaine 1% was used as a local anestheticinfused into the area of access. We then used Seldinger Technique and ultrasound guidance to gain access tothe vein with a needle and a wire. Over the wire a 7-Sudanese introducerwas placed. Through this introducer a 7-Sudanese VNUS Closure Fast-Cath waspassed up to the Saphenofemoral junction and pulled distal 2.5cm. Upon completion of this we then usedultrasound guidance to tumesce the vein using 0.1% lidocaine causing thevein to collapse around itself but also for local anesthetic effect.Upon completion of this we then at this time point placed the patient in the Trendelenburg position and thegenerator was set at a maximum power of 40 short, temperature 120 degreesCelsius and each 7cm segment was treated for 20 seconds. Upon completionthe introducer and the catheter were removed. The patient's leg was cleaned up and placed in a stocking.He was transferred to home in the care of a family member. Cameron Biggs MD [facility] Surgery Dept. 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 [address] [place] [address] Assigned Heart and Vascular Provider 12/27/20 01/25/21 Juan C Patel DO [address] [facility] [address] [place] [address] Assigned PCP 11/27/20 06/05/22 Danni Ceja MD [address] [place], [place] [id number] Assigned PCP 06/06/22 07/24/22 Danni Ceja MD [address] [place] [address] Assigned PCP 07/25/22 10/04/22 documented as of this encounter
--- OUTSIDE RECORDS SUMMARY | 2024-06-23 03:42 | XMS_ITS | Clinical Summary ---
Author Organization [place] Address [address] [place] [address] Care Team Providers Care Club Manager Name Role Phone Danni Ceja MD Primary Care Provider [phone] Allergies Active Allergy Reactions Criticality Noted Date Comments Penicillins Anaphylaxis,Shortness Of Breath High Medications calcium carbonate (TUMS) 500 MG chewable tablet Take 1 tablet by mouth Active naproxen sodium (ANAPROX) 220 MG tablet Take 440 mg by mouth Active albuterol (PROVENTIL HFA) 108 (90 Base) MCG/ACT inhaler Inhale 2 puffs into the lungs 10/17/2015 Active budesonide (PULMICORT FLEXHALER) 180 MCG/ACT inhaler Inhale 1 puff into the lungs 10/17/2015 Active fluticasone (FLONASE) 50 MCG/ACT nasal spray 1 spray Active levothyroxine (SYNTHROID/LEVO THROID) 100 MCG tablet TAKE 1 TABLET BY MOUTH EVERY DAY. 11/19/2015 Active simvastatin (ZOCOR) 10 MG tablet TAKE 1 TABLET BY MOUTH EVERY DAY IN THE EVENING 10/23/2015 Active triamterene-HCT Z (DYAZIDE) 37.5-25 MG capsule TAKE ONCE CAPSULE BY MOUTH DAILY 09/29/2015 Active meclizine (ANTIVERT) 12.5 MG tablet 1 08/29/2018 Active Active Problems No known active problems Resolved Problems Problem Noted Date Diagnosed Date Resolved Date Ischemic cardiomyopathy 04/01/201903/15 Acute non-ST elevation myoca rdial infarction (NSTEMI) 03/31/2019 05/31/2019 Muscle weakness (generalized) 01/31/2008 03/06/2008 Immunizations Name Administration Dates Next Due Flu, Unspecified 02/23/2011 Influenza (High Dose) Trival ent,PF (Fluzone) 03/22/2019,03/17/2018,03/19/2017,2015,04/08/2015,02/27/2014 Influenza (prior to 2023) 05/02/2008,05/31/2007 Influenza Vaccine, 6+MO IM (QUADRIVALENT W/PRESERVATIVES) 04/26/2013,03/15/2012 Pneumo Conj 13-V (2010&after) 05/02/2015 Pneumococcal 23 valent 07/13/2013,04/20/2005 TD,PF 7+ (Tenivac) 04/20/2005 TDAP (Adacel,Boostrix) 07/13/2013 Td,adult,historic,unspecified 08/16/2002 Zoster recombinant adjuvante d (SHINGRIX) 12/29/2018 Zoster vaccine, live 09/22/2011 Family History Medical History Relation Comments Coronary Stenting Brother 7 stents in to kelly; had been a smoker through college Other - See Comments Brother thrombocyto sis Chronic Obstructive Pulmonar y Disease Father he had care for years at [facility] Pneumonia Father fatal Breast Cancer Maternal Aunt Sudden Maternal Aunt in her slee p, no autopsy Uterine Cancer Maternal Cousin Prostate Cancer Maternal Grandfather Heart Disease Mother fatal, at [facility] in the 1970s, no angiogram or heart surgery Breast Cancer Sister ICD - Implantable Cardiovert er Defibrillator No family hx of Pacemaker No family hx of Relation Status Comments Brother Alive Father (Age 93) Maternal Aunt (Age 75) Maternal Cousin (Age 74) Maternal Grandfather Mother (Age 69) Sister Alive Social History Tobacco Use Types Packs/Day Years Used Date Smoking Tobacco: Never Smokeless Tobacco: Never Alcohol Use Standard Drinks/Week Comments Yes 0 (1 standard drink = 0.6 oz pur e alcohol) Alcoholic Drinks/day: rare AUDIT-C Answer Date Recorded Frequency of Alcohol Consumption Never 11/12/2018 Average Number of Drinks Not on file 019 Frequency of Binge Drinking Not on file 06/2018 PHQ-2 Answer Date Recorded PHQ-2 Score 1 07/18/2019 Adolescent Education Answer Date Record ed Getting School Help Needed Not on file 03/06 Comments Unknown Sex and Gender Information Value Date Recorded Sex Assigned at Not on file Legal Sex Female 4:52 AM COUNTY PROGRAM TECHNICIAN Gender Identity Not on file Sexual Orientation Not on file Last Filed Vital Signs Vital Sign Reading Time Taken Comments Blood Pressure 130/74 08/07/2019 2:17 PM COUNTY PROGRAM TECHNICIAN Pulse 64 08/07/2019 2:17 PM COUNTY PROGRAM TECHNICIAN Temperature 36.7 C (98.1 F) 07/18/2019 11:13 AM COUNTY PROGRAM TECHNICIAN Respiratory Rate 16 08/07/2019 2:17 PM COUNTY PROGRAM TECHNICIAN Oxygen Saturation 96% 07/12/2019 8:43 AM COUNTY PROGRAM TECHNICIAN Inhaled Oxygen Concentration - - Weight 82 kg (180 lb 11.2 oz) 08/07/2019 2:17 PM COUNTY PROGRAM TECHNICIAN Height 172.7 cm (5' 8) 08/07/2019 2:17 PM COUNTY PROGRAM TECHNICIAN Body Mass Index 27.48 08/07/2019 2:17 PM COUNTY PROGRAM TECHNICIAN Plan of Treatment Not on file Insurance [facility] FEDERAL EMPLOYEE PROGRAM [facility] [employer] PRO[employer] [facility] [employer] PRO[employer] Care Teams Club Manager Relationship Specialty Start Date End Date Danni Ceja MD PCP - General Internal Medicine 11/09/18
--- OUTSIDE RECORDS SUMMARY | 2024-06-23 03:42 | XMS_ITS | Encounter Summary ---
Author Organization [place] Address [address] [facility] [place] [address] Care Team Providers Care Maintenance Worker Swimming Pool Name Role Phone Danni Ceja MD Primary Care Provider [phone] Phoebe Fernandez MD Unavailable [phone] Juan Camejo MD Unavailable [phone] Juan C Patel DO Unavailable Danni Ceja MD Unavailable [phone] Danni Ceja MD Unavailable [phone] Encounter Details Date Type Department Care Team (Late st Contact Info) Description 11/29/2018 [facility] Medical Advice [facility] [address] [phone] Winston Evangelista LPN Social History Tobacco Use Types Packs/Day Years Used Date Smoking Tobacco: Never Smokeless Tobacco: Never Alcohol Use Standard Drinks/Week Comments Never 0 (1 standard drink = 0.6 oz pur e alcohol) AUDIT-C Answer Date Recorded Frequency of Alcohol Consumption Never 11/12/2018 Average Number of Drinks Not on file 019 Frequency of Binge Drinking Not on file 06/2018 Comments Unknown Sex and Gender Information Value Date Recorded Sex Assigned at Not on file Legal Sex Female 4: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 [address] [place] [address] Assigned Heart and Vascular Provider 12/27/20 01/25/21 Juan C Patel DO [address] [facility] [address] [place] [address] Assigned PCP 11/27/20 06/05/22 Danni Ceja MD [address] [place] [address] Assigned PCP 06/06/22 07/24/22 Danni Ceja MD [address] [place] [address] Assigned PCP 07/25/22 10/04/22 documented as of this encounter
--- OUTSIDE RECORDS SUMMARY | 2024-06-23 03:42 | XMS_ITS | Referral Summary ---
Author Organization [place] Address [address] [facility] [place] [address] Care Team Providers Care Attending Anesthesiologist Name Role Phone Danni Ceja MD Primary Care Provider [phone] Allergies Active Allergy Reactions Criticality Noted Date [...] d (SHINGRIX) 12/29/2018 Zoster vaccine, live 09/22/2011 Social History Tobacco Use Types Packs/Day Years [...] on file Legal Sex Female 4:52 AM FUR CLEANER Gender Identity Not on file Sexual Orientation Not on file Last Filed Vital Signs Vital Sign Reading Time Taken Comments Blood Pressure 130/74 08/07/2019 2:17 PM FUR CLEANER Pulse 64 08/07/2019 2:17 PM FUR CLEANER Temperature 36.7 C (98.1 F) 07/18/2019 11:13 AM FUR CLEANER Respiratory Rate 16 08/07/2019 2:17 PM FUR CLEANER Oxygen Saturation 96% 07/12/2019 8:43 AM FUR CLEANER Inhaled Oxygen Concentration - - Weight 82 kg (180 lb 11.2 oz) 08/07/2019 2:17 PM FUR CLEANER Height 172.7 cm (5' 8) 08/07/2019 2:17 PM FUR CLEANER Body Mass Index 27.48 08/07/2019 2:17 PM FUR CLEANER Plan of Treatment Not on file Insurance [facility] FEDERAL EMPLOYEE PROGRAM [facility] [employer] PRO[employer] [facility] [employer] PRO[employer] Care Teams Attending Anesthesiologist Relationship Specialty Start Date End Date Danni Ceja MD PCP - General Internal Medicine 11/09/18
--- OUTSIDE RECORDS SUMMARY | 2024-06-23 03:42 | XMS_ITS | Encounter Summary ---
Author Organization [place] Address [address] [facility] [address] Care Team Providers Care Land Surveying Survey Worker Name Role Phone Danni Ceja MD Primary Care Provider Phoebe Fernandez MD Unavailable Juan Camejo MD Unavailable [phone] Juan C Patel DO Unavailable Danni Ceja MD Unavailable [phone] Danni Ceja MD Unavailable [phone] Encounter Details Date Type Department Care Team (Late st Contact Info) Description 04/24/2014 Records - [facility] [place] [address] [facility] [address] [place] [phone] Sherif Jones MD [address] [facility] [address] [place], [place] [id number] Social History Tobacco Use Types Packs/Day Years Used Date Smoking Tobacco: Never Assessed Comments Unknown Sex and Gender Information Value Date Recorded Sex Assigned at Not on file Legal Sex Female 4:52 AM 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 Was seen back on 01/17/2014 and was worked up with an ultrasound showing insufficiency of left greater saphenous vein. She has worn her socks now. She wore thigh socks for this whole time period and has had continued progression of the disease and symptoms. Achiness and heaviness are her major complaints now and with ultrasound showing incompetency/insufficiency of that left greater saphenous vein she is a good candidate for closure. We spent the whole 20 minutes today discussing the procedure of VNUS closure, the risks of anesthesia, infection, bleeding, clotting, DVTs, the process of the procedure discussed and information was given today. We will get this approved through her insurance and get it going as soon as possible. SHERIF JONES MD pls D 04/24/2014 13:30:53 T 04/24/2014 22:45:56 R 04/24/2014 22:45:56 [id number] cc:SHERIF GROSS MD SHELL OPERATOR documented in this encounter Plan of Treatment Not on file documented as of this encounter Visit Diagnoses Not on filedocumented in this encounter Care Teams Land Surveying Survey Worker Relationship Specialty Start Date End Date Danni Ceja MD PCP - General Internal Medicine 11/09/18 Phoebe Fernandez MD [address] [facility] [address] [place], [place] [address] Assigned Heart and Vascular Provider 04/05/20 05/18/20 Juan Camejo MD [address] [facility] [address] [place] [address] Assigned Heart and Vascular Provider 12/27/20 01/25/21 Juan C Patel DO [address] [facility] [address] [place] [address] Assigned PCP 11/27/20 06/05/22 Danni Ceja MD [address] [address] Assigned PCP 06/06/22 07/24/22 Danni Ceja MD [address] [address] Assigned PCP 07/25/22 10/04/22 documented as of this encounter
--- OUTSIDE RECORDS SUMMARY | 2024-06-23 03:42 | XMS_ITS | Encounter Summary ---
Author Organization [facility] Address [address] [place] [address] Care Team Providers Care Book Repairer Name Role Phone Danni Ceja MD Primary Care Provider Phoebe Fernandez MD Unavailable [phone] Juan Camejo MD Unavailable [phone] Juan C Patel DO Unavailable Danni Ceja MD Unavailable Danni Ceja MD Unavailable [phone] Encounter Details Date Type Department Care Team (Late st Contact Info) Description 01/17/2014 Records - [facility] [place] [address] [place] [id number] Sherif Jones MD [address] [facility] [address] [place], [place] [id number] Social History Tobacco Use Types Packs/Day Years Used Date Smoking Tobacco: Never Assessed Comments Unknown Sex and Gender Information Value Date Recorded Sex Assigned at Not on file 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 She has a significant amount of spider veins of both legs, a few varicose veins that have progressed over time and she comes in to seek kind of what her options may be and see what kind of things she can look into. She has not worn socks on a regular basis at all for some time, maybe wore some in the past but has not of lately. She has otherwise been in her normal state of health, and as mentioned, Dr. Gross is her primary physician. She has allergies to penicillin. Her current medications are levothyroxine, simvastatin, triamterene, Pulmicort and albuterol. She has a medical history of her uterus removed and oophorectomy done, high blood pressure, osteoarthritis, asthma, high cholesterol. REVIEW OF SYSTEMS: Positive for leg pain and swelling. Twelve system review otherwise negative. FAMILY HISTORY: Breast cancer, high blood pressure and strokes. SOCIAL HISTORY: She lives with her . She has 1 daughter. She does not smoke or drink alcohol. 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 She works about 20 hours a week. On examination today, temp is 98.5, pulse 60, respirations 12, blood pressure 118/60, height 69.5 inches, weight is 98 pounds. She is in no apparent distress. She is pleasant. Her pupils are equal and reactive. Mucous membranes are moist. Neck is supple. Chest is clear to auscultation. Cardiovascular: Regular rate and rhythm. Abdomen is soft and nondistended. Femoral pulse, popliteal and distal pulses are intact. She has varicose veins really on the upper thigh on the right side. There are spider veins in both upper and lower legs. No open ulcers or sores are noted here today. On examination today, temp is 98.5, pulse 60, respirations 12, blood pressure 118/60, height 69.5 inches, weight is 98 pounds. She is in no apparent distress. She is pleasant. Her pupils are equal and reactive. Mucous membranes are moist. Neck is supple. Chest is clear to auscultation. Cardiovascular: Regular rate and rhythm. Abdomen is soft and nondistended. Femoral pulse, popliteal and distal pulses are intact. She has varicose veins really on the upper thigh on the right side. There are spider veins in both upper and lower legs. No open ulcers or sores are noted here today. STUDIES: I reviewed calcium ___ ___ ___ study today. Bilateral deep systems are intact. Her right greater saphenous vein is competent throughout, also her left is incompetent at the junction measuring 5 mm down into the knee. No DVTs noted. No incompetent perforators. ASSESSMENT AND PLAN: Patient has symptomatic vein disease and issues. I am going to start her off with conservative therapy, exercise, elevation and stockings. See her back in 3 months for a followup visit. Scripts and informational literature was given out today. Also, she is a candidate for closure. We gave her some background information and some literature about this also and she will looks things over. Will see her back in 3 months and see how she is doing. Discussed and answered questions today. January 18, 2014 Yesy Gross MD [address] [place] [address] Gross, Today I had the pleasure to see Ms. Carissa Bradley, a nice woman with symptomatic leg problems and vein issues. Our plan will be followup in 3 months for a followup visit after starting conservative therapy with the stocking use for the 3 month time period. ___ ___ ___?? 252 started here 2 weeks ago and I think that is a big help. She is a candidate for closure on the left side if she continues to have issues after her conservative trial. Thanks again for your consultation. Sincerely, SHERIF JONES MD mmn D 01/17/2014 12:48:51 T 01/18/2014 23:39:06 R 01/18/2014 23:39:06 [id number] cc:SHERIF GROSS MD documented in this encounter Plan of Treatment Not on file documented as of this encounter Visit Diagnoses Not on filedocumented in this encounter Care Teams Book Repairer Relationship Specialty Start Date End Date Danni Ceja MD PCP - General Internal Medicine 11/09/18 Phoebe Fernandez MD [address] [facility] [address] [place] [address] Assigned Heart and Vascular Provider 04/05/20 05/18/20 Juan Camejo MD [address] [facility] [address] [place] [address] Assigned Heart and Vascular Provider 12/27/20 01/25/21 Juan C Patel DO [address] [facility] [address] [place] [address] Assigned PCP 11/27/20 06/05/22 Danni Ceja MD [address] [place], [place] [id number] Assigned PCP 06/06/22 07/24/22 Danni Ceja MD [address] [place] [address] Assigned PCP 07/25/22 10/04/22 documented as of this encounter
--- OUTSIDE RECORDS SUMMARY | 2024-06-23 03:42 | XMS_ITS | Clinical Summary ---
Author Organization [facility] Address [place], [place] [address] Care Team Providers Care Event Set Up Specialist Name Role Phone Votel, Niall Solis MD Primary Care Provider + Allergies Active Allergy Reactions Criticality Noted Date Comments Murray Inhibitors Cough Low 07/12/2019 Dry cough The cough caused her to stop lisinopril Sulfamethoxazole-Trimethop rim Rash Medium 12/13/2019 Doxycycline Diarrhea Medium 03/29/2019 Penicillins Anaphylaxis High 12/01/2015 Sulfa (Sulfonamide Antibiotics) *Unknown 11/14/2020 Medications aspirin (ECOTRIN) 81 mg enteric coated tablet Take 1 Tablet (81 mg) by mouth once daily with a meal. 0 1 Active b complex vitamins (VITAMIN B COMPLEX) capsule Take 1 Capsule by mouth once daily. 0 1 Active fluticasone (50 mcg per actuation) nasal solution (FLONASE) Inhale 1 [place] into affected nostril(s) once daily if needed for Rhinitis. Active escitalopram oxalate (LEXAPRO) 10 mg tablet Take 10 mg by mouth once daily. 3 Active cholecalciferol, Vitamin D3, 2,000 unit tabletIndications: Preventative health care Take 1 Tablet (2,000 units) by mouth once daily. 0 3 Active albuterol HFA (ProAir HFA) 90 mcg/actuation inhalerIndications :Mild persistent asthma without complication Inhale 1-2 puffs by mouth every 4 hours if needed for Shortness of Breath 1st choice or Wheezing 2nd choice 1 Each 4 Active pantoprazole (PROTONIX) 20 mg tabletIndications: Chronic GERD Take 1 Tablet (20 mg) by mouth once daily. 90 Tablet 3 4 Active mometasone-formote rol (DULERA) 200-5 mcg/actuation inhalerIndications :Moderate persistent asthma, unspecified whether complicated Inhale 2 Puffs by mouth two times daily. 39 g 3 4 Active levothyroxine (SYNTHROID) 100 mcg tabletIndications: Hypothyroidism, unspecified type Take 1 Tablet (100 mcg) by mouth once daily. 90 Tablet 3 4 Active meclizine (ANTIVERT) 12.5 mg tabletIndications: Nausea and vomiting, unspecified vomiting type,Dizziness Take 1 Tablet (12.5 mg) by mouth 3 times daily if needed for Nausea/Vomiti ng (take 12.5 mg - 25 mg). 30 Tablet 4 Active ascorbic acid, vitamin C, (Vitamin C) 1,000 mg tablet Take 1,000 mg by mouth once daily. Active atorvastatin (LIPITOR) 40 mg tabletIndications: Atherosclerosis of [place] coronary artery of [place] heart with angina pectoris (HC) Take 1 Tablet (40 mg) by mouth at bedtime. 90 Tablet 3 4 Active losartan (COZAAR) 25 mg tabletIndications: Takotsubo cardiomyopathy Take 1 Tablet (25 mg) by mouth once daily. 90 Tablet 3 4 Active metoprolol succinate (Toprol XL) 25 mg Sustained-Release tabletIndications: HTN (hypertension) Take 1 Tablet (25 mg) by mouth once daily. 90 Tablet 3 4 Active oxyCODONE (ROXICODONE) 5 mg immediate release tablet 4 Active Xarelto 15 mg tab tablet TAKE ONE TABLET BY MOUTH TWICE DAILY FOR 21 DAYS then increase to 20mg prescription. * 4 Active rivaroxaban (XARELTO) 20 mg tabletIndications: deep venous thrombosis Take one tablet daily to complete 12 weeks of treatment for deep vein thrombosis. 30 Tablet 2 4 Active Active Problems Problem Noted Date Diagnosed Date Myocardial infarction 01/29/2023 NSTEMI (non-ST elevated myocardial infarction) 0 01/14/2023 Takotsubo cardiomyopathy 01/14/2023 HTN (hypertension) 01/14/2023 Onychomycosis 01/14/2023 Asthma 01/14/2023 GERD (gastroesophageal reflux disease) Nonischemic cardiomyopathy 07/18/2020 Assessment & Plan (11/18/2022 1:47 PM CDT): Sress Cardiomyopathy and this has resolved. Atherosclerosis of [place] co ronary artery of [place] heart with angina pectoris 07/18/2020 Encounters Date Type Department Care Team Description 04/24/2024 Orders Only [facility] Scanner 1 scan: (1-Ord) [facility], 04/24/2024 04/24/2024 Nurse Triage [facility] [address] [place] [address] Niall Long MD Leg Swelling 04/12/2024 1:15 PM CDT Office Visit [facility] [address] [place] [address] Niall Long MD ER Follow up (04/03/24, [place] knee pain, swollen, DVT, surgery 03/28/24); Immunization/Injectio n 04/12/2024 Travel 04/03/2024 Orders Only [facility] Scanner 1 scan: (1-Ord) [facility], 04/03/2024 03/28/2024 Orders Only [facility] Scanner 1 scan: (1-Ord) [place], KN[place] RT 2V, 03/28/2024 from Last 3 Months Immunizations Name Administration [...] drink = 0.6 oz pur e alcohol) [facility] Utilities Answer Date Recorded Do you have trouble paying f or utilities (for example, heat, electricity, water, phone)? Yes 02/04/2024 PHQ-2 Answer Date Recorded PHQ-2 TOTAL SCORE [...] is your housing situation today? 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 Gender Identity Not on file Sexual Orientation Not on file Obstetrics History Last Filed Vital Signs Vital Sign Reading Time Taken Comments Blood Pressure 101/66 04/12/2024 1:17 PM CDT Pulse 64 04/12/2024 1:17 PM CDT Temperature 37 C (98.6 F) 04/12/2024 1:17 PM CDT Respiratory Rate 19 02/04/2024 1:28 PM CDT Oxygen Saturation 96% 04/12/2024 1:17 PM CDT Inhaled Oxygen Concentration - - Weight 85.1 kg (187 lb 11.2 oz) 04/12/2024 1:17 PM CDT Height 172.7 cm (5' 8) 04/12/2024 1:17 PM CDT Body Mass Index 28.54 04/12/2024 1:17 PM CDT Plan of Treatment Upcoming Encounters Date Type Department Care Team (Late st Contact Info) Description 06/29/2024 11:40 AM TRANSPORT MANAGER Office Visit [facility] [address] [phone] Mason Chavez, DPM [address] [phone] Health Maintenance Due Date Last Done Comments [...] Tdap Completed 07/13/2013 Pneumococcal series for age 50+ Completed 05/02/2015, 07/13/2013, 04/20/2005 DEXA/DXA scan for age 65+ Completed 07/25/2020 Influenza for age 65+ Completed 04/12/2024 , 03/01/2023, 04/27/2022, Additional history exists Procedures Procedure Name Priority Date/Time Associated Diagnosis Comments SCAN-ULTRASOUND REPORT 04/24/2024 12:00 AM TRANSPORT MANAGER SCAN-ULTRASOUND REPORT 04/03/2024 12:00 AM CDT SCAN-RADIOLOGY REPORT 03/28/2024 12:00 AM CDT XR DXA BONE DENSITY 2 SITES AXIAL Routine 07/25/2020 10:35 AM TRANSPORT MANAGER Menopause from Last 3 Months or Most Recently Relevant to Health Maintenance Results * SCAN-ULTRASOUND REPORT (04/24/2024 12:00 AM TRANSPORT MANAGER) Only the most recent of2 resultswithin the time period is included. Anatomical Region Laterality Modality Other us Scanner OTHER Final Result * SCAN-RADIOLOGY REPORT (03/28/2024 12:00 AM CDT) Anatomical Region Laterality Modality Other us Scanner OTHER Final Result * XR DXA BONE DENSITY 2 SITES AXIAL (07/25/2020 10:35 AM TRANSPORT MANAGER) Anatomical Region Laterality Modality Spine, HIPS, HIPL, HIPR Other Impressions 07/31/2020 8:57 AM TRANSPORT MANAGER Normal bone density. RECOMMENDATIONS: - The National [...] Janie Bryant PA-C Narrative 07/31/2020 8:57 AM TRANSPORT MANAGER XR DXA Bone Mineral Density (BMD) EXAM LOCATION: [address] [address] PATIENT NAME: Carissa Hernandez DATE OF : 1945 EXAM DATE: 07/25/2020 REQUESTING PROVIDER: Niall Long MD GENDER AT : female HEIGHT: 5' 8.31 (07/18/2020) WEIGHT: 189 lb 12.8 oz (07/18/2020) MENOPAUSAL STATUS: Postmenopausal [...] two scanners are made by the same envelope sealer. PROCEDURE: Dual-energy x-ray absorptiometry performed with routine [...] -0.4 Z-Score: 0.7 Comparison to baseline scan: None Comparison to most recent scan: None RESULT FEMORAL NECK Bilateral Total Femoral Neck BMD: 1.015 g/cm2 T-Score: -0.2 Z-Score: 1.3 Comparison to baseline scan: None Comparison to most recent scan: None RESULT TOTAL HIP Bilateral Total Hip BMD: 1.002 g/cm2 T-Score: 0.0 Z-Score: 1.2 Comparison to baseline scan: None Comparison to most recent scan: None WHO criteria: Normal: T-score at or above -1 SD Osteopenia: T-score between -1.1 and -2.4 SD Osteoporosis: T-score at or below -2.5 SD FRAX RISK CALCULATION: N/A given normal BMD Niall Long MD DEXA Final Re sult from Last 3 Months or Most Recently Relevant to Health Maintenance Insurance MEDICARE PART A HB ONLY [employer] MEDICARE ADVANTAGE MEDICARE PART B HB ONLY [facility] FED EMP Advance Directives * Full Code (Latest Code Status on File) Date Activated Date Inactivated Comments 01/14/2023 6:47 PM 01/15/2023 8:00 PM Question Answer Comments Code Status Discussion: Reviewed Preferences Care Teams Event Set Up Specialist Relationship Specialty Start Date End Date Votel, Niall Solis MD [address] [place] [address] PCP - General Family Practice 04/01/21
[2024-06-23 03:45] VITALS: BP 117/65; PULSE 75; RESP 18; TEMP 36.7; O2SAT 99; BMI 29.1
--- NOTE | 2024-06-23 03:54 | ED.FEMALEGU ---
HPI - Female Genitourinary General Time Seen by Provider: 03:54 Date Seen: 06/23/24 Chief complaint: Urogenital Problems, Female Stated complaint: possible UTI Time Seen by Provider: 06/23/24 03:54 Source: patient, RN notes reviewed and old records reviewed Mode of arrival: ambulatory Limitations: no limitations History of Present Illness HPI Narrative: 79-year-old female who comes in with urinary frequency and pain with urination for 2 days. Denies flank pain, nausea, vomiting, diarrhea, or fever. Does have some low back pain. Does have a history of urinary tract infections. Related Data Home Medications ?Medication ?Instructions ?Recorded ?Confirmed albuterol sulfate 90 mcg/actuation 2 inh inhalation Q4H PRN 05/15/22 05/17/24 aerosol inhaler atorvastatin 40 mg tablet 40 mg PO HS 05/15/22 05/17/24 levothyroxine 100 mcg tablet 100 mcg PO DAILY 05/15/22 05/17/24 mometasone-formoterol HFA 200 2 puff inhalation BID 05/15/22 05/17/24 mcg-5 mcg/actuation aerosol inhaler (Dulera) pantoprazole 20 mg tablet,delayed 20 mg PO DAILY 05/15/22 05/17/24 release metoprolol succinate 25 mg 25 mg PO DAILY 01/17/23 05/17/24 tablet,extended release 24 hr cholecalciferol (vitamin D3) 25 50 mcg PO DAILY 01/18/23 05/17/24 mcg (1,000 unit) capsule vitamin B complex (B 1 tab PO DAILY 01/18/23 05/17/24 Complex-Vitamin B12 tablet) escitalopram oxalate 10 mg tablet 10 mg PO DAILY 03/23/23 05/17/24 fluticasone propionate 50 1 spray intranasal DAILY PRN 03/23/23 05/17/24 mcg/actuation nasal spray,suspension (Flonase Allergy Relief) losartan 25 mg tablet 25 mg PO DAILY 12/20/23 05/17/24 meclizine 12.5 mg tablet 12.5 mg PO TID PRN nausea/vomiting 03/27/24 05/17/24 Previous Rx's ?Medication ?Instructions ?Recorded acetaminophen 500 mg capsule 500 - 1,000 mg (1 - 2 x 500 mg) PO 03/28/24 Q6H PRN pain #100 caps sennosides 8.6 mg tablet (Senna 17.2 mg (2 x 8.6 mg) PO BID PRN 03/28/24 Lax) constipation #100 tabs rivaroxaban 15 mg (42)-20 mg (9) See Rx Instructions PO .COMPLEX 04/03/24 tablets in a starter pack (Xarelto #51 ea DVT-PE Treatment 30-Day Starter) oxycodone 5 mg tablet 2.5 - 5 mg (0.5 - 1 x 5 mg) PO 04/05/24 Q4-6H PRN Pain #42 tabs cefdinir 300 mg capsule 300 mg PO BID 10 days #20 caps 06/23/24 phenazopyridine 200 mg tablet 200 mg PO TID 6 doses #6 tabs 06/23/24 (Pyridium) Allergies Allergy/AdvReac Type Severity Reaction Status Date / Time doxycycline Allergy Diarrhea Verified 06/23/24 03:46 Penicillins Allergy Anaphylaxis Verified 06/23/24 03:46 Sulfa (Sulfonamide Allergy Verified 06/23/24 03:46 Antibiotics) sulfamethoxazole (From Allergy Rash Verified 06/23/24 03:46 Bactrim) trimethoprim (From Bactrim) Allergy Rash Verified 06/23/24 03:46 RIAN Inhibitors AdvReac Cough Verified 06/23/24 03:46 PFSH [facility] Medical History (Updated 06/23/24 @ 04:11 by Winston Lua MD) Takotsubo syndrome (~01/14/23) ?I51.81 - Takotsubo syndrome (ICD-10) Uterine endometriosis ?N80.00 - Endometriosis of the uterus, unspecified (ICD-10) Onychomycosis ?B35.1 - Tinea unguium (ICD-10) Non-ST elevated myocardial infarction (non-STEMI) (~01/14/23) ?I21.4 - Non-ST elevation (NSTEMI) myocardial infarction (ICD-10) Hypothyroidism ?E03.9 - Hypothyroidism, unspecified (ICD-10) GERD (gastroesophageal reflux disease) ?K21.9 - Gastro-esophageal reflux disease without esophagitis (ICD-10) Asthma ?J45.909 - Unspecified asthma, uncomplicated (ICD-10) Hyperlipidemia ?E78.5 - Hyperlipidemia, unspecified (ICD-10) Hypertension ?I10 - Essential (primary) hypertension (ICD-10) Surgical History 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/24) ?Z96.651 - Presence of right artificial knee joint (ICD-10) History of cataract extraction ?Z98.49 - Cataract extraction status, unspecified eye (ICD-10) Hx of colonoscopy ?Z98.890 - Other specified postprocedural states (ICD-10) Family History (Updated 12/20/23 @ 10:21 by Soni Riggins ~ [facility], [facility]) Sister Alzheimer's dementia Breast cancer Aunt Breast cancer Family/Other Breast cancer Mother Cardiovascular disease Osteoarthritis Father COPD (chronic obstructive pulmonary disease) Osteoarthritis Brother Osteoarthritis Social History (Reviewed 12/20/23 @ 10:20 by Soni Riggins ~ [facility], [facility]) Narrative: . Lives in a house with her . Denies tobacco, EtOH, recreational drug use. What is your current living situation?: I presently have a place to live Problems where you live: no known problems Problems where you live details: NA In the past 12 months, utilities in danger of being shut off: no In past 12 months, lack of transportation kept you from medical appts, meetings, work, or getting things needed for daily living: no In the past 12 mos, have been you worried that your food would run out before you had money to buy more?: never true In the past 12 mos, the food you bought just didn't last and you didn't have money to buy more?: never true Highest level of school completed/degree received: Bachelor's degree Smoking Status: Never smoker Do you use any of these nicotine containing products: None Second hand tobacco smoke exposure: No How often do you have a drink containing alcohol: never How often do you have six or more drinks on one occasion: Never AUDIT-C Alcohol total score: 0 Non-prescribed substance use: denies use Caffeine: Yes How often does anyone, including family, friends and others, physically hurt you: never How often does anyone, including family, friends and others, insult or talk down to you: never How often does anyone, including family, friends and others, threaten you with harm: never How often does anyone, including family, friends and others, scream or curse at you: never Are you using contraception or practicing any form of control: No service: No Exam Narrative: Exam Narrative: General: Well-developed and well-nourished, no acute distress Head: Atraumatic and normocephalic Eyes: Pupils are equal reactive, extraocular motions intact, conjunctiva clear ENT: External nose and ears are normal, posterior pharynx without erythema or exudate Neck: No midline cervical tenderness, full spontaneous range of motion the neck, trachea midline, no adenopathy Heart: Regular rate and rhythm no murmurs or thrills Lungs: Clear to auscultation bilaterally without wheezes or crackles Abdomen: Soft, suprapubic tenderness, nondistended with active bowel sounds Musculoskeletal: No tenderness, deformity, or edema Neurologic: Awake, alert, and oriented x3, no gross focal neurologic deficits, cranial nerves intact as tested Psych: Mood and affect are appropriate Skin: No rashes Const: Vital Signs, click to edit/add: Vital Signs - 24 hr 06/23/24 03:45 Temperature 98.0 F Pulse Rate [Right Pulse Oximeter] 75 Respiratory Rate 18 Blood Pressure [Ri ght Upper Arm] 117/65 Pulse Oximetry 99 Oxygen Delivery Me thod Room Air Course Course ED Course: Reviewed most recent primary care office visit from March 2020 for which was follow up of knee replacement at that time, patient was doing well, is on postoperative Xarelto. Patient presents today with urinary frequency, dysuria, and some low back pain. No systemic signs of infection. On exam here patient's vital is stable, has some suprapubic tenderness. Urinalysis is not a clean catch but does have white cells, some red cells, and bacteria. Given symptoms and urinalysis, patient will be started on antibiotics. Reviewed prior culture from September 2023 which showed pansensitive Citrobacter koseri, patient will be started on Omnicef. Vital Signs Vital signs: Initial Vital Signs Temperature 98.0 F 06/23/24 03:45 Temperature Source Temporal Artery Scan 06/23/24 03:45 Pulse Rate 75 06/23/24 03:45 Respiratory Rate 18 06/23/24 03:45 Blood Pressure 117/65 06/23/24 03:45 Blood Pressure Mean 82 06/23/24 03:45 Blood Pressure Position Sitting 06/23/24 03:45 Pulse Oximetry 99 06/23/24 03:45 Oxygen Delivery Method Room Air 06/23/24 03:45 Vital Signs Temperature 98.0 F 06/23/24 03:45 Pulse Rate 75 06/23/24 03:45 Respiratory Rate 18 06/23/24 03:45 Blood Pressure 117/65 06/23/24 03:45 Pulse Oximetry 99 06/23/24 03:45 Oxygen Delivery Method Room Air 06/23/24 03:45 Temperature 98.0 F 06/23/24 03:45 Pulse Rate 75 06/23/24 03:45 Respiratory Rate 18 06/23/24 03:45 Blood Pressure 117/65 06/23/24 03:45 Pulse Oximetry 99 06/23/24 03:45 Oxygen Delivery Method Room Air 06/23/24 03:45 MDM - Female Genitourinary Lab Data Labs: Lab Results 06/23/24 Range/Units 03:47 Urine Color Yellow (Yellow) Urine Appearance Cloudy A (Clear) Urine pH 6.5 (5.0-8.5) Ur Specific [place] 1.025 (1.000-1.030) Urine Protein 3+ A (Negative) Urine Glucose (UA) Negative (Negative) Urine Ketones Negative (Negative) Urine Blood 3+ A (Negative) Urine Nitrite Negative (Negative) Urine Bilirubin Negative (Negative) Urine Urobilinogen 0.2 (0.2-1.0) Ur Leukocyte Esterase 2+ A (Negative) Urine RBC 25-50 A (0-2) Urine WBC 50-100 A (0-5) Ur Squamous Epith Cells Moderate A (None-Few) Urine Bacteria Moderate A (None) Discharge Plan Discharge Clinical Impression: Acute UTI Patient Disposition: Home, Self-Care Condition: Stable Instructions: Urinary Tract Infection in Women (DC) Additional Instructions: Take antibiotics as prescribed starting today Activity Level: No Restrictions Discharge Diet: Regular Prescriptions: New cefdinir 300 mg capsule 300 mg PO BID 10 Days Qty: 20 0RF phenazopyridine [Pyridium] 200 mg tablet 200 mg PO TID Qty: 6 0RF No Action losartan 25 mg tablet 25 mg PO DAILY oxycodone 5 mg tablet 2.5 - 5 mg PO Q4-6H MDD 6 tabs per day PRN (Reason: Pain) Qty: 42 0RF Rx Instructions: Minimize. Discontinue as soon as possible levothyroxine 100 mcg tablet 100 mcg PO DAILY atorvastatin 40 mg tablet 40 mg PO HS pantoprazole 20 mg tablet,delayed release (DR/EC) 20 mg PO DAILY Dulera 200-5 mcg/actuation HFA aerosol inhaler 2 puff inhalation BID Patient Comments: albuterol sulfate 90 mcg/actuation HFA aerosol inhaler 2 inh inhalation Q4H PRN metoprolol succinate 25 mg tablet extended release 24 hr 25 mg PO DAILY cholecalciferol (vitamin D3) 25 mcg (1,000 unit) capsule 50 mcg PO DAILY vitamin B complex [B Complex-Vitamin B12] Tablet 1 tab PO DAILY meclizine 12.5 mg tablet 12.5 mg PO TID PRN (Reason: nausea/vomiting) sennosides [Senna Lax] 8.6 mg Tablet 17.2 mg PO BID PRN (Reason: constipation) Qty: 100 0RF acetaminophen 500 mg capsule 500 - 1,000 mg PO Q6H MDD 4000mg per day PRN (Reason: pain) Qty: 100 0RF escitalopram oxalate 10 mg tablet 10 mg PO DAILY fluticasone propionate [Flonase Allergy Relief] 50 mcg/actuation spray,suspension 1 spray intranasal DAILY PRN Rx Instructions: administer into each nostril Xarelto DVT-PE Treat 30d Start 15 mg (42)- 20 mg (9) tablets,dose pack See Rx Instructions .ROUTE .COMPLEX Qty: 51 0RF Rx Instructions: take one-15 mg tablet twice daily for 21 days, then one-20 mg tablet once daily; must take with meal/food Follow Up/Referrals: Niall Long MD [Primary Care Provider] - Stand Alone Forms: [facility] Info Instructions
[2024-06-23 04:01] LABS: Appearance Urine Cloudy (Clear); Bilirubin Urine Negative (Negative); Blood Urine 3+ (Negative); Color Urine Yellow (Yellow); Glucose Urine Negative (Negative); Ketones Urine Negative (Negative); Leukocyte Esterase Urine 2+ (Negative); Nitrite Urine Negative (Negative); Protein Urine 3+ (Negative); Specific Gravity Urine 1.025 (1.000-1.030); Urobilinogen Urine 0.2 (0.2-1.0); pH Urine 6.5 (5.0-8.5)
[2024-06-23 04:02] LABS: RBC Urine 25-50 (0-2); WBC Urine 50-100 (0-5)
[2024-06-23 04:03] LABS: Bacteria Urine Moderate; Squamous Epithelial Cell Urine Moderate (None-Few)
[2024-06-23] MEDS: cephALEXin 500 MG CAPSULE PO (04:09)
--- OUTSIDE RECORDS SUMMARY | 2024-06-23 04:19 | XMS_ITS | Encounter Summary ---
Author Organization [place] Address [address] [facility]. [address] Care Team Providers Care Career Professional Name Role Phone Danni Ceja MD Primary Care Provider Phoebe Fernandez MD Unavailable [phone] Juan Camejo MD Unavailable Juan C Patel DO Unavailable Danni Ceja MD Unavailable Danni Ceja MD Unavailable [phone] Encounter Details Date Type Department Care Team (Late st Contact Info) Description 01/17/2014 Records - [facility] [place] [address] [facility] [address] [place] [phone] Sherif Jones MD [address] [facility] [address] [place], [place] [id number] Social History Tobacco Use Types Packs/Day Years Used Date Smoking Tobacco: Never Assessed Comments Unknown Sex and Gender Information Value Date Recorded Sex Assigned at Not on file Legal 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 January 18, 2014 Yesy Gross MD [address] [place] [address] Gross, Today I had the [...] 12:48:51 T 01/18/2014 23:39:06 R 01/18/2014 23:39:06 [id number] cc:SHERIF GROSS MD documented in this encounter Plan of Treatment Not on file documented as of this encounter Visit Diagnoses Not on filedocumented in this encounter Care Teams Career Professional Relationship Specialty Start Date End Date Danni Ceja MD PCP - General Internal Medicine 11/09/18 Phoebe Fernandez MD [address] [facility] [address] [place] [address] Assigned Heart and Vascular Provider 04/05/20 05/18/20 Juan Camejo MD [address] [facility] [address] [place] [address] Assigned Heart and Vascular Provider 12/27/20 01/25/21 Juan C Patel DO [address] [facility] [address] [place] [address] Assigned PCP 11/27/20 06/05/22 Danni Ceja MD [address] [place], [place] [id number] Assigned PCP 06/06/22 07/24/22 Danni Ceja MD [address] [place] [address] Assigned PCP 07/25/22 10/04/22 documented as of this encounter
--- OUTSIDE RECORDS SUMMARY | 2024-06-23 04:19 | XMS_ITS | Encounter Summary ---
Author Organization [place] Address [address] [facility] [place] [address] Care Team Providers Care Cocoa Bean Roaster Name Role Phone Danni Ceja MD Primary Care Provider Phoebe Fernandez MD Unavailable [phone] Juan Camejo MD Unavailable Juan C Patel DO Unavailable Danni Ceja MD Unavailable [phone] Danni Ceja MD Unavailable [phone] Encounter Details Date Type Department Care Team (Late st Contact Info) Description 04/24/2014 Records - [facility] [place] [address] [facility] [address] [place] [phone] Sherif Jones MD [address] [facility] [address] [place], [place] [id number] Social History Tobacco Use Types Packs/Day Years Used Date Smoking Tobacco: Never Assessed Comments Unknown Sex and Gender Information Value Date Recorded Sex Assigned at Not on file 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 Gender Identity Not on file Sexual [...] 13:30:53 T 04/24/2014 22:45:56 R 04/24/2014 22:45:56 [id number] cc:SHERIF GROSS MD ICULUM DEVELOPMENT MANAGER documented in this encounter Plan of Treatment Not on file documented as of this encounter Visit Diagnoses Not on filedocumented in this encounter Care Teams Cocoa Bean Roaster Relationship Specialty Start Date End Date Danni Ceja MD PCP - General Internal Medicine 11/09/18 Phoebe Fernandez MD [address] [facility] [address] [place], [place] [address] Assigned Heart and Vascular Provider 04/05/20 05/18/20 Juan Camejo MD [address] [facility] [address] [place] [address] Assigned Heart and Vascular Provider 12/27/20 01/25/21 Juan C Patel DO [address] [facility] [address] [place] [address] Assigned PCP 11/27/20 06/05/22 Danni Ceja MD [address] [address] Assigned PCP 06/06/22 07/24/22 Danni Ceja MD [address] [address] Assigned PCP 07/25/22 10/04/22 documented as of this encounter
--- OUTSIDE RECORDS SUMMARY | 2024-06-23 04:19 | XMS_ITS | Clinical Summary ---
Author Organization [place] Address [address] [facility] [place] [address] Care Team Providers Care Senior Radiation Protection Technician Name Role Phone Danni Ceja MD Primary Care Provider [phone] Allergies Active Allergy Reactions Criticality Noted Date [...] Father he had care for [facility] at [facility] Pneumonia Father fatal Breast Cancer Maternal Aunt Sudden Maternal Aunt in her slee p, no autopsy Uterine Cancer Maternal Cousin Prostate Cancer Maternal Grandfather Heart Disease Mother fatal, at [facility] in the 1970s, no angiogram or [...] on file Legal Sex Female 4:52 AM SHOEBLACK Gender Identity Not on file Sexual Orientation Not on file Last Filed Vital Signs Vital Sign Reading Time Taken Comments Blood Pressure 130/74 08/07/2019 2:17 PM SHOEBLACK Pulse 64 08/07/2019 2:17 PM SHOEBLACK Temperature 36.7 C (98.1 F) 07/18/2019 11:13 AM SHOEBLACK Respiratory Rate 16 08/07/2019 2:17 PM SHOEBLACK Oxygen Saturation 96% 07/12/2019 8:43 AM SHOEBLACK Inhaled Oxygen Concentration - - Weight 82 kg (180 lb 11.2 oz) 08/07/2019 2:17 PM SHOEBLACK Height 172.7 cm (5' 8) 08/07/2019 2:17 PM SHOEBLACK Body Mass Index 27.48 08/07/2019 2:17 PM SHOEBLACK Plan of Treatment Not on file Insurance [facility] [employer] PRO[employer] [facility] [employer] [facility] [employer] Care Teams Senior Radiation Protection Technician Relationship Specialty Start Date End Date Danni Ceja MD PCP - General Internal Medicine 11/09/18
--- OUTSIDE RECORDS SUMMARY | 2024-06-23 04:19 | XMS_ITS | Encounter Summary ---
Author Organization [place] Address [address] [facility] [place] [address] Care Team Providers Care Electrical Sign Servicer Name Role Phone Danni Ceja MD Primary Care Provider [phone] Phoebe Fernandez MD Unavailable [phone] Juan Camejo MD Unavailable [phone] Juan C Patel DO Unavailable Danni Ceja MD Unavailable [phone] Danni Ceja MD Unavailable [phone] Encounter Details Date Type Department Care Team (Late st Contact Info) Description 11/29/2018 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 Gender Identity Not on file Sexual Orientation Not on file documented as of this encounter Plan of Treatment Not on file documented as of this encounter Visit Diagnoses Not on filedocumented in this encounter Care Teams Electrical Sign Servicer Relationship Specialty Start Date End Date Danni Ceja MD PCP - General Internal Medicine 11/09/18 Phoebe Fernandez MD [address] [facility] [address] [place] [address] Assigned Heart and Vascular Provider 04/05/20 05/18/20 Juan Camejo MD [address] [facility] [address] [place] [address] Assigned Heart and Vascular Provider 12/27/20 01/25/21 Juan C Patel DO [address] [facility] [address] [place] [address] Assigned PCP 11/27/20 06/05/22 Danni Ceja MD [address] [place] [address] Assigned PCP 06/06/22 07/24/22 Danni Ceja MD [address] [place] [address] Assigned PCP 07/25/22 10/04/22 documented as of this encounter
--- OUTSIDE RECORDS SUMMARY | 2024-06-23 04:19 | XMS_ITS | Referral Summary ---
Author Organization [place] Address [address] [facility] [place] [address] Care Team Providers Care Print Controller Name Role Phone Danni Ceja MD Primary Care Provider [phone] Allergies Active Allergy Reactions Criticality Noted Date [...] on file Legal Sex Female 4:52 AM EMERGENCY ROOM TECH Gender Identity Not on file Sexual Orientation Not on file Last Filed Vital Signs Vital Sign Reading Time Taken Comments Blood Pressure 130/74 08/07/2019 2:17 PM EMERGENCY ROOM TECH Pulse 64 08/07/2019 2:17 PM EMERGENCY ROOM TECH Temperature 36.7 C (98.1 F) 07/18/2019 11:13 AM EMERGENCY ROOM TECH Respiratory Rate 16 08/07/2019 2:17 PM EMERGENCY ROOM TECH Oxygen Saturation 96% 07/12/2019 8:43 AM EMERGENCY ROOM TECH Inhaled Oxygen Concentration - - Weight 82 kg (180 lb 11.2 oz) 08/07/2019 2:17 PM EMERGENCY ROOM TECH Height 172.7 cm (5' 8) 08/07/2019 2:17 PM EMERGENCY ROOM TECH Body Mass Index 27.48 08/07/2019 2:17 PM EMERGENCY ROOM TECH Plan of Treatment Not on file Insurance [facility] FED[employer] EM[employer]EE PROGRAM [facility] [employer] [facility] [employer] Care Teams Print Controller Relationship Specialty Start Date End Date Danni Ceja MD PCP - General Internal Medicine 11/09/18
--- OUTSIDE RECORDS SUMMARY | 2024-06-23 04:19 | XMS_ITS | Clinical Summary ---
Author Organization [facility] Address [place], [place] [address] Care Team Providers Care Stores Clerk Name Role Phone Votel, Niall Solis MD [...] per actuation) nasal solution (FLONASE) Inhale 1 Leon into affected nostril(s) once daily if needed [...] atorvastatin (LIPITOR) 40 mg tabletIndications: Atherosclerosis of [place] coronary artery of [place] heart with angina pectoris (HC) Take 1 [...] Cardiomyopathy and this has resolved. Atherosclerosis of [place] co ronary artery of [place] heart with angina pectoris 07/18/2020 Encounters Date Type Department Care Team Description 04/24/2024 Orders Only [facility] Scanner 1 scan: (1-Ord) [facility], 04/24/2024 04/24/2024 Nurse Triage [facility] [address] [place] [address] Niall Long MD Leg Swelling 04/12/2024 1:15 PM CDT Office Visit [facility] [address] [place] [address] Niall Long MD ER Follow up (04/03/24, [place] knee pain, swollen, DVT, surgery 03/28/24); Immunization/Injectio n 04/12/2024 Travel 04/03/2024 Orders Only [facility] Scanner 1 scan: (1-Ord) [facility], 04/03/2024 03/28/2024 Orders Only [facility] Scanner 1 scan: (1-Ord) [place], KNEE RT 2V, 03/28/2024 from Last 3 [...] drink = 0.6 oz pur e alcohol) [facility] Utilities Answer Date Recorded Do you [...] on file Legal Sex Female 6:47 AM BUILDING ARCHITECTURAL DESIGNER Gender Identity Not on file Sexual Orientation [...] st Contact Info) Description 06/29/2024 11:40 AM BUILDING ARCHITECTURAL DESIGNER Office Visit [facility] [address] [id number] Mason Chavez, DPM [address] [id number] Health Maintenance Due Date Last Done Comments [...] Diagnosis Comments SCAN-ULTRASOUND REPORT 04/24/2024 12:00 AM BUILDING ARCHITECTURAL DESIGNER SCAN-ULTRASOUND REPORT 04/03/2024 12:00 AM CDT SCAN-RADIOLOGY REPORT 03/28/2024 12:00 AM CDT XR DXA BONE DENSITY 2 SITES AXIAL Routine 07/25/2020 10:35 AM BUILDING ARCHITECTURAL DESIGNER Menopause from Last 3 Months or Most Recently Relevant to Health Maintenance Results * SCAN-ULTRASOUND REPORT (04/24/2024 12:00 AM BUILDING ARCHITECTURAL DESIGNER) Only the most recent of2 resultswithin the time period is included. Anatomical Region Laterality Modality Other us Scanner OTHER Final Result * SCAN-RADIOLOGY REPORT (03/28/2024 12:00 AM CDT) Anatomical Region Laterality Modality Other us Scanner OTHER Final Result * XR DXA BONE DENSITY 2 SITES AXIAL (07/25/2020 10:35 AM BUILDING ARCHITECTURAL DESIGNER) Anatomical Region Laterality Modality Spine, HIPS, HIPL, HIPR Other Impressions 07/31/2020 8:57 AM BUILDING ARCHITECTURAL DESIGNER Normal bone density. RECOMMENDATIONS: - The National [...] Janie Bryant PA-C Narrative 07/31/2020 8:57 AM BUILDING ARCHITECTURAL DESIGNER XR DXA Bone Mineral Density (BMD) EXAM LOCATION: [address] [address] PATIENT NAME: Carissa Hernandez DATE OF : [...] two scanners are made by the same laundry operator wash room. PROCEDURE: Dual-energy x-ray absorptiometry performed with routine [...] Code Status Discussion: Reviewed Preferences Care Teams Stores Clerk Relationship Specialty Start Date End Date Votel, Niall Solis MD [address] [place] [address] PCP - General Family Practice 04/01/21
--- OUTSIDE RECORDS SUMMARY | 2024-06-23 04:19 | XMS_ITS | Continuity of Care Document ---
Author Name Nw[facility]IN User [email or web address] llowed Address Unknown Organization Unknown Address Unknown Procedures FILTER APPLIED:Only known Procedures with Onset Date within the last 5 years Procedure Date Procedure Provider Additional Inform ation Status X-RAY EXAM OF LOWER LEG (63972) Completed X-RAY EXAM OF KNEE 3 (77574) Completed EMERGENCY DEPT VISIT LOW MDM (33159) Completed ANESTH LENS SURGERY (90271) Completed ANES PT EXTEME AGE<1 YR >70 (27875) Completed XCAPSL CTRC RMVL INSJ IO LENS PROSTH W/O ECP (79987) Completed ANES PT EXTEME AGE<1 YR >70 (07835) Completed ANESTH LENS SURGERY (79006) Completed XCAPSL CTRC RMVL INSJ IO LENS PROSTH W/O ECP (61695) Completed Encounters FILTER APPLIED:Only known Encounters with Admission Date within the last 5 years Encounter Location Admission Discharge Billing Code Supervisor [employer] Galina kebede [facility] Genesis Mendoza
--- OUTSIDE RECORDS SUMMARY | 2024-06-23 04:19 | XMS_ITS | Encounter Summary ---
Author Organization [place] Address [address] [place] [address] Care Team Providers Care Snow Groomer Name Role Phone Danni Ceja MD Primary Care Provider Phoebe Fernandez MD Unavailable [phone] Juan Camejo MD Unavailable Juan C Patel DO Unavailable [phone] Danni Ceja MD Unavailable [phone] Danni Ceja MD Unavailable [phone] Encounter Details Date Type Department Care Team (Late st Contact Info) Description 09/25/2014 Records - [facility] HE CONVERSION Scan, Non-Provider Social History Tobacco Use Types Packs/Day Years Used Date Smoking Tobacco: Never Assessed Comments Unknown Sex and Gender Information Value Date Recorded Sex Assigned at Not on file Legal Sex Female 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 Gender Identity Not on file Sexual Orientation Not on file documented as of this encounter Plan of Treatment Not on file documented as of this encounter Visit Diagnoses Not on filedocumented in this encounter Care Teams Snow Groomer Relationship Specialty Start Date End Date Danni Ceja MD PCP - General Internal Medicine 11/09/18 Phoebe Fernandez MD [address] [facility] [address] [place] [address] Assigned Heart and Vascular Provider 04/05/20 05/18/20 Juan aCmejo MD [address] [facility] [address] [place] [address] Assigned Heart and Vascular Provider 12/27/20 01/25/21 Juan C Patel DO [address] [facility] [address] [place] [address] Assigned PCP 11/27/20 06/05/22 Danni Ceja MD [address] [facility] [address] [place] [address] Assigned PCP 06/06/22 07/24/22 Danni Ceja MD [address] [facility] [address] [place] [address] Assigned PCP 07/25/22 10/04/22 documented as of this encounter
--- OUTSIDE RECORDS SUMMARY | 2024-06-23 04:19 | XMS_ITS | Encounter Summary ---
Author Organization [place] Address [address] [facility] 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 Over the wire a 7-Malian introducer was placed. Through this introducer a 7-Malian VNUS Closure Fast-Cath was passed up to [...] of a family member. Cameron Biggs MD [facility] Surgery Dept. * Archie Rodriguez I - [...] and a wire. Over the wire a 7-Malian introducer was placed. Through this introducer a 7-Malian VNUS Closure Fast-Cath was passed up to [...] of a family member. Cameron Biggs MD [facility] Surgery Dept. Procedure Note Kalyan Cameron L [...] and a wire. Over the wire a 7-Malian introducerwas placed. Through this introducer a 7-Malian VNUS Closure Fast-Cath waspassed up to the [...] of a family member. Cameron Biggs MD [facility] Surgery Dept. 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 documented in this encounter Care Teams Weight Loss Counselor Relationship Specialty Start Date End Date Danni Ceja MD PCP - General Internal Medicine 11/09/18 Phoebe Fernandez MD [address] [facility] [address] [place] [address] Assigned Heart and Vascular Provider 04/05/20 05/18/20 Juan Camejo MD [address] [facility] [address] [place] [address] Assigned Heart and Vascular Provider 12/27/20 01/25/21 Juan C Patel DO [address] [facility] [address] [place] [address] Assigned PCP 11/27/20 06/05/22 Danni Ceja MD [address] [place], [place] [id number] Assigned PCP 06/06/22 07/24/22 Danni Ceja MD [address] [place] [address] Assigned PCP 07/25/22 10/04/22 documented as of this encounter
== END 2024-06-23 04:24 | disposition home or self-care (01) ==
LOC: ED 04:17
PROVIDERS: Emergency Provider Family Medicine; PCP Family Medicine
DX: N39.0 Urinary tract infection, site not specified (principal)
CPT/HCPCS: 81001; 87086; 99283; 99284; A9270

== ENCOUNTER 2025-06-10 15:00 | Emergency (ER) | payer MEDICARE, SELFPAY ==
--- OUTSIDE RECORDS SUMMARY | 2015-10-31 09:00 | XMS_ITS | Continuity of Care Document ---
Author Organization [facility] Address [address] [address] [place] [address] Phone Care Team Providers Care Reclamation Engineer Name Role Phone Unavailable Unavailable Unavailable Allergies, Adverse Reactions, Alerts Substance Reaction Status Criticality PENICILLIN G POTASSIUM throat closes, anaphylaxis Acti ve No Information Medications Medication Instructions Dosage Effective Dates (start - stop) Status Comments simvastatin 10 mg tablet take 1 tablet b y oral route every day in the evening 10 MG - Active omeprazole 40 mg capsule,delayed release take 1 capsule by ORAL route every day before a meal 40 MG - Active triamterene 37.5 mg-hydrochlorothiazide 25 mg tablet take 1 Tablet by oral route every day 1 Tablet - Active gabapentin 300 mg capsule take 1 Capsule by ORAL route 3 times every day 300 MG - Active Aleve 220 mg capsule take 2 Capsule by Oral route 2 times every day 2 Capsule - Active PreviDent 5000 Booster Plus 1.1 % dental paste - Active Pulmicort Flexhaler 180 mcg/actuation breath activated inhale 2 puff by inhalation route every day 360 MCG - Active ProAir RespiClick 90 mcg/actuation breath activated inhale 2 puff by inhalation route every 4 - 6 hours as needed 180 MCG - Active Synthroid 100 mcg Tab Take 1 tablet by mouth daily - Active MiralaxBisacodylMagCit Colon Prep Use as directed - No Longer Active MiralaxBisacodylMagCit Colon Prep Use as directed - No Longer Active Prempro 0.625 mg-2.5 mg Tab Take 1 table t by mouth daily - No Longer Active Advair Diskus 250 mcg-50 mcg/dose for Inhalation 1 puff every night - No Longer Active Procedures Procedure Date Colonoscopy Flex; W/bx 1/mx Level Iv-surg Path Gross/micro 16 Advance Directives Directive Yes / No Effective Date File Name No Information Encounters Encounter Description Practice Location Reason(s) For Visit Diagnoses Date Provider Providers Copied on Encounter [facility], [address] [address], [place], [id number], [place] tel:[phone] [facility] [place] Diverticulosi s of large intestine without hemorrhageHem orrhoids, internalEncou nter for screening for malignant neoplasm of colonDisease of intestine, unspecifiedOt her hemorrhoidsDv rtclos of lg int w/o perforation or abscess w/o bleeding 6 No Information [facility], [address] [address], [place], [id number], [place] tel:[phone] [place] [facility] No Information 6 Link MD Xiong. [address] [facility], [facility] [address], [place], [id number], [place]. tel:[phone] [facility], [address] [address], [place], [id number], [place] tel:[phone] [facility] No Information 5 Link MD Xiong. [address] [facility], [facility] [address], [place], [place], [id number], [place]. tel:[phone] Referring Provider: Referral Self, USE FOR SELF REFERRALS. [facility], [address] [address], [place], [id number], [place] tel:[phone] [facility] No Information 5 No Information Referring Provider: Sarah Louis MD, [address] [facility] [place], [address]. tel:[phone] Family History Family Member Type Diagnosis Age At Onset Brother Problem (finding) Alive and well Sister Problem (finding) Alive and well Mother Problem (finding) Daughter Problem (finding) Alive and well Sister Problem (finding) Thyroid disorder Father Problem (finding) Payers Payer name Insurance type Covered alliance party ID Authoriza tion(s) No Information Social History Type Description Quantity Date Captured Comments Alcohol Use Details Unknown Caffeine Use Details Unknown Tobacco Use Status No Information Smoking Status Never smoker Sex Female Vital Signs Date / Time: Height Weight BMI Pulse Rate Blood Pressure Temperature Respiratory Rate Body Surface Area Head Circumference Head Circ. Percentile Wt./Khoa. Percentile BMI percentile Pulse Ox Inhaled Ox 2:35 PM 69.00 in 81.180 kg (179.00 lbs) 26.4 0 kg/m eter (2) 79 /min 129/86 mm[Hg] 0.00 F 16 /min 95 % Chief Complaint And Reason For Visit No Information Reason For Referral Reason For Referral No Information History Of Present Illness Encounter Date Complaint History Of Prese nt Illness No Information Functional Status Date Functional Assessmen t No Information Instructions Date Instruction Additional Infor mation Hemorrhoids Related to Diver ticulosis of large intestine without hemorrhage High Fiber Diet Related to Diver ticulosis of large intestine without hemorrhage Diverticulosis/Diverticulitis Re lated to Diverticulosis of large intestine without hemorrhage Assessments Type Assessment Date assessment Diverticulosis of large intestin e without hemorrhage assessment Hemorrhoids, internal 6 Patient Care Teams Name Effective Dates (start - stop) Status Members No Information
--- OUTSIDE RECORDS SUMMARY | 2015-10-31 09:00 | XMS_ITS | Continuity of Care Document ---
Author Organization [facility] Address [address] [address] [place] [address] Phone Care Team Providers Care Children'S Librarian Name Role Phone Unavailable Unavailable Unavailable Allergies, [...] Diagnoses Date Provider Providers Copied on Encounter [facility], [address] [address], [place], [id number], [place] tel:[phone] [facility] [place] Diverticulosi s of large intestine without hemorrhageHem orrhoids, internalEncou nter for screening for malignant neoplasm of colonDisease of intestine, unspecifiedOt her hemorrhoidsDv rtclos of lg int w/o perforation or abscess w/o bleeding 6 No Information [facility], [address] [address], [place], [id number], [place] tel:[phone] [place] [facility] No Information 6 Link MD Xiong. [address] [facility], [facility] [address], [place], [id number], [place]. tel:[phone] [facility], [address] [address], [place], [id number], [place] tel:[phone] [facility] No Information 5 Link MD Xiong. [address] [facility], [facility] [address], [place], [place], [id number], [place]. tel:[phone] Referring Provider: Referral Self, USE FOR SELF REFERRALS. [facility], [address] [address], [place], [id number], [place] tel:[phone] [facility] No Information 5 No Information Referring Provider: Sarah Louis MD, [address] [facility] [place], [address]. tel:[phone] Family History Family Member Type Diagnosis Age At Onset Brother Problem (finding) Alive and well Sister Problem (finding) Alive and well Mother Problem (finding) Daughter Problem (finding) Alive and well Sister Problem (finding) Thyroid disorder Father Problem (finding) Payers Payer name Insurance type Covered constitution party ID Authoriza tion(s) No Information Social [...]
--- OUTSIDE RECORDS SUMMARY | 2025-06-10 15:02 | XMS_ITS | Clinical Summary ---
Author Organization [employer] [facility] [employer] Address [address] [place] [id number] Care Team Providers Care Beauty Culturist Name Role Phone Votel, Niall Solis MD Primary Care Provider + Allergies Active AllergyReactionsCriticalityNoted DateCommentsAce InhibitorsCoughLow 07/12/2019 Dry cough The cough caused her to stop lisinopril Sulfamethoxazole-JwjhmuvpfuqcKrrfJkrkux80/01/2020DoxycyclineDiarrheaMedium 03/29/20199567MzusbvowilwNodssmetaeuKhbc79/19/2016Sulfa (Sulfonamide Antibiotics) *Lpqjhwp7511/14/20205074VicidynmbergOsvfIavo47/11/2023 Medications MedicationSigDispense QuantityRefillsLast FilledStart DateEnd DateStatus b complex vitamins (VITAMIN B COMPLEX) capsule Take 1 Capsule by mouth once daily.ctive fluticasone (50 mcg per actuation) nasal solution (FLONASE) Inhale 1 [place] into affected nostril(s) once daily if needed for Rhinitis.Active cholecalciferol, Vitamin D3, 2,000 unit tablet Indications:Preventative health careTake 1 Tablet (2,000 units) by mouth once daily.ctive meclizine (ANTIVERT) 12.5 mg tablet Indications:Nausea and vomiting, unspecified vomiting type,DizzinessTake 1 Tablet (12.5 mg) by mouth 3 times daily if needed for Nausea/Vomiting (take 12.5 mg - 25 mg). 30 Tablet 02/04/2024ctive benzonatate 100 mg capsule Indications:Subacute coughTake 1 Capsule (100 mg) by mouth 3 times daily if needed for Cough. 30 Capsule 5Active pantoprazole 20 mg tablet Indications:Chronic GERDTake 1 Tablet (20 mg) by mouth once daily. 90 Tablet 5Active mometasone-formoterol 200-5 mcg/actuation inhaler Indications:Moderate persistent asthma, unspecified whether complicated (HC) Inhale 2 Puffs by mouth two times daily. 39 g 5Active metoprolol succinate (Toprol XL) 25 mg Sustained-Release tablet Indications:HTN (hypertension)Take 1 Tablet (25 mg) by mouth once daily. 90 Tablet 5Active losartan 25 mg tablet Indications:Takotsubo cardiomyopathyTake 1 Tablet (25 mg) by mouth once daily. 90 Tablet 5Active levothyroxine 100 mcg tablet Indications:Hypothyroidism, unspecified typeTake 1 Tablet (100 mcg) by mouth once daily. 90 Tablet 5Active atorvastatin 40 mg tablet Indications: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Take 1 Tablet (40 mg) by mouth at bedtime. 90 Tablet 5Active escitalopram oxalate (LEXAPRO) 10 mg tablet Indications:Anxiety and depressionTake 1 Tablet (10 mg) by mouth once daily. 90 Tablet 5Active phenazopyridine (PYRIDIUM) 200 mg tablet Take 1 Tablet by mouth every 8 hours.5Active aspirin 81 mg tablet Take 81 mg by mouth once daily with a meal.Active albuterol HFA (PRO-AIR; VENTOLIN; PROVENTIL) 90 mcg/actuation inhaler Indications:Mild persistent asthma without complication (HC)Inhale 1-2 puffs by mouth every 4 hours if needed for Shortness of Breath 1st choice or Wheezing 2nd choice 8.5 g 5Active albuterol HFA (ProAir HFA) 90 mcg/actuation inhaler Indications:Mild persistent asthma without complication (HC)Inhale 1-2 puffs by mouth every 4 hours if needed for Shortness of Breath 1st choice or Wheezing 2nd choice 1 Each Discontinued Active Problems ProblemNoted DateDiagnosed DateMyocardial ddpddaoknd05/18/2023NSTEMI (non-ST elevated myocardial infarction)01/14/2023Takotsubo jsxtbivmtiynss71/03/2023HTN (hypertension)01/14/20232513Vjgrvizynmrap43/03/6592Jwypra29/03/2023ERD (gastroesophageal reflux disease)01/14/2023Nonischemic fzzemtydzdwbfh85/04/2021 Assessment & Plan (11/18/2022 1:47 PM CDT): Sress Cardiomyopathy and this has resolved. 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 07/18/2020 Encounters DateTypeDepartmentCare BphmLxegbhmaqyv12/11/2025Refill [facility] [address] [place] [address] Niall Long MD Refill Request (Albuterol Hfa)05/16/2025 4:10 PM CSTOffice Visit [facility] [address] [place] [address] Niall Long MD Referral (Vascular -varicose veins); Immunization/Dlsbzqwow46/03/2025Travel 04/23/2025Nurse Triage [facility] [address] [place] [address] Niall Long MD Leg Pain/problemfrom Last 3 Months Immunizations ImmunizationAdministration DatesNext DueAmb Influenza, Inactivated AIIV4 (Age 65+ Years) Preserv Free03/19/2020COVID-19 vaccine (Moderna 100mcg/0.5mL) SANYA MIRANDA 05/20/2021,08/27/2020,07/30/2020Influenza Virus, Gymbcrwktbv24/13/2013, 03/15/2012,02/23/2011Influenza, High-dose Vrxfulkhuso42/09/2019,03/17/2018, 03/19/2017,02/27/2016,04/08/2015,02/27/2014Influenza, High-dose Quadrivalent Uredccfivwh94/14/2022Influenza, IIV3 (Age 6-35 mos)05/02/2008,05/31/2007 Influenza, IIV3 (Age >=3 years)04/26/2013,03/15/2012,02/23/2011Influenza, Inactivated AIIV4 (Age 65+ Years) Preserv Free03/01/2023,04/09/2021Influenza, Inactivated IIV3 (Age 65+ Years) Preserv Free05/16/2025,04/12/2024neumococcal Poly,23-Valent (Pneumovax)07/13/2013,04/20/2005Pneumococcal conj 13-Valent (Prevnar 13)05/02/2015TD, SKDGZWDVYUJ10/05/2003Td (Age >=7 Years)04/20/2005, 08/16/2002Td, Preservative Free (age >= 7 Years)04/20/2005Tdap07/13/2013Zoster (Shingrix-RZV, recombinant)12/29/2018Zoster (Zostavax-ZVL, live)09/22/2011 Family History Medical HistoryRelationNameCommentsCancer-breastMaternal AuntHeart DiseaseMother Cancer-breastOtherMaternal 1st Cousin l2Fogozolua's diseaseSisterDianne Empdae-ydmbmlMghwdvIjbamsZmlqfv-glxadxrCx Family HistoryRelationNameStatus CommentsBrotherMichaelAliveFatherMaternal AuntMotherOtherSisterDianneAlive Social History Tobacco UseTypesPacks/DayYears UsedDateSmoking Tobacco: NeverPassive Smoke Exposure: NeverSmokeless Tobacco: Never Tobacco Cessation:Counseling Given: Yes Alcohol UseStandard Drinks/WeekCommentsYes0 (1 standard drink = 0.6 oz pure alcohol)less than a drink per monthPHQ-2AnswerDate RecordedPHQ-2 TOTAL SCORE0 10/24/2024Social ConnectionsAnswerDate RecordedDo you often feel lonely or isolated from those around you?Financial Resource StrainAnswerDate RecordedDifficulty of Paying Living Nkarhoby749/03/2025Difficulty of Paying Living ExpensesNot on file05/16/2025Food InsecurityAnswerDate RecordedDo you worry your food will run out before you are able to buy more? Transportation NeedsAnswerDate RecordedDoes lack of transportation keep you from medical appointments?Does lack of transportation keep you from work, meetings or getting things that you need?Housing StabilityAnswerDate RecordedWhat is your housing situation today?UtilitiesAnswerDate RecordedDo you have trouble paying for utilities (for example, heat, electricity, water, phone)?CommentsNoSex and Gender InformationValueDate RecordedSex Assigned at BirthNot on fileLegal SexFemale 06/27/2012 6:47 AM CSTGender IdentityNot on fileSexual OrientationNot on file Last Filed Vital Signs Vital SignReadingTime TakenCommentsBlood Ribpiwop895/7505/16/2025 4:13 PM STRUCTURAL BIOLOGIST Tqwvr239505/16/2025 4:13 PM MRGEoqjoiuweeq77.6 ??C (97.8 ??F)12/14/2024 1:45 PM CDTRespiratory Ypul519102/04/2024 1:28 PM CDTOxygen Drjeajokom09%05/16/2025 4:13 PM CSTInhaled Oxygen Concentration--Shxike74.6 kg (191 lb)05/16/2025 4:13 PM STRUCTURAL BIOLOGIST Imzdas094.3 cm (5' 9)02/27/2025 11:13 AM CDTBody Mass Index28.21002/27/2025 11:13 AM CDT Plan of Treatment DateTypeDepartmentCare Team (Latest Contact Info)Zcrawkpmnwv99/22/2026 11:30 AM CSTAppointment [facility] [address] [place] [address] 07/05/2025 1:00 PM CSTOffice Visit [facility] [address] [place] [phone] Health MaintenanceDue DateLast DoneCommentsHepatitis C screening for age 18-79 1964Zoster (shingles) series for age 50+ (3 of 3), 09/22/2011RSV vaccine for adults or (1 - 1-dose 75+ series)2021 Tetanus bybtyuy55/30/35111807/13/2013, 04/20/2005, 04/20/2005, Additional history existsCOVID-19 vaccine series ( season), 08/27/2020, 07/30/2020epression screening for age 12+/, 11/20/2022, 11/18/2022, Additional history existsMedicare Wellness for age 65+ /, 11/18/2022, 09/09/2021, Additional history existsBMI (ht and wt on same day) for age 18+/, 10/24/2024, 04/12/2024, Additional history existsPneumococcal series for age 50+Pggzhvoii00/19/2015, 07/13/2013, 04/20/2005DEXA/DXA scan for age 65+Ggtrgsurw34/11/2021Influenza OomxsmcHxbhiyyer62/03/2025, 04/12/2024, 03/01/2023, Additional history exists Hepatitis B series for 19+Aged OutNo longer eligible based on patient's age to complete this topic Procedures Procedure NamePriorityDate/TimeAssociated DiagnosisCommentsXR DXA BONE DENSITY 2 SITES RBZZOFqlsvzr77/11/2021 10:35 AM STRUCTURAL BIOLOGIST Menopause from Last 3 Months or Most Recently Relevant to Health Maintenance Results * XR DXA BONE DENSITY 2 SITES AXIAL (07/25/2020 10:35 AM STRUCTURAL BIOLOGIST)Anatomical Region LateralityModalitySpine, HIPS, HIPL, HIPROtherSpecimen (Source)Anatomical Location / LateralityCollection Method / VolumeCollection TimeReceived Time Impressions 07/31/2020 8:57 AM STRUCTURAL BIOLOGIST Normal bone density. RECOMMENDATIONS: - The National [...] Janie Bryant PA-C Narrative 07/31/2020 8:57 AM STRUCTURAL BIOLOGIST XR DXA Bone Mineral Density (BMD) EXAM LOCATION: [facility] [address] [facility] [address] PATIENT NAME: Carissa Hernandez DATE OF : [...] two scanners are made by the same bottle selector. PROCEDURE: Dual-energy x-ray absorptiometry performed with routine [...] FRAX RISK CALCULATION: N/A given normal BMD Authorizing ProviderResult TypeResult StatusWicleo Long MDDEXAFinal Result from Last 3 Months or Most Recently Relevant to Health Maintenance Insurance Advance Directives * Full Code (Latest Code Status on File) Date ActivatedDate InactivatedComments01/14/2023 6:47 PM01/15/2023 8:00 PMQuestion AnswerCommentsCode Status Discussion:* Reviewed Preferences Care Teams Team MemberRelationshipSpecialtyStart DateEnd Date Votel, Niall Solis MD [address] [place] [address] PCP - GeneralFamily Qfnxtcwk17/19/21
--- OUTSIDE RECORDS SUMMARY | 2025-06-10 15:02 | XMS_ITS | Clinical Summary ---
Author Organization [place] Address [address] [facility] [place] [address] Care Team Providers Care Water Sponger Name Role Phone Danni Ceja MD Primary Care Provider [phone] Allergies Active AllergyReactionsCriticalityNoted DateCommentsPenicillinsAnaphylaxis, Shortness Of BerciaQlsb21/28/2012 Medications MedicationSigDispense QuantityRefillsLast FilledStart DateEnd DateStatus calcium carbonate (TUMS) 500 MG chewable tablet Take 1 tablet by mouthActive naproxen sodium (ANAPROX) 220 MG tablet Take 440 mg by mouthActive albuterol (PROVENTIL HFA) 108 (90 Base) MCG/ACT inhaler Inhale 2 puffs into the lungs10/17/2015Active budesonide (PULMICORT FLEXHALER) 180 MCG/ACT inhaler Inhale 1 puff into the lungs10/17/2015Active fluticasone (FLONASE) 50 MCG/ACT nasal spray 1 sprayActive levothyroxine (SYNTHROID/LEVOTHROID) 100 MCG tablet TAKE 1 TABLET BY MOUTH EVERY DAY.11/19/2015Active simvastatin (ZOCOR) 10 MG tablet TAKE 1 TABLET BY MOUTH EVERY DAY IN THE QCADTZG8810/23/2015Active triamterene-HCTZ (DYAZIDE) 37.5-25 MG capsule TAKE ONCE CAPSULE BY MOUTH DAILY09/29/2015Active meclizine (ANTIVERT) 12.5 MG tablet Active Active Problems No known active problems Resolved Problems ProblemNoted DateDiagnosed DateResolved DateIschemic lcvkusocebtwmb30/19/2019 04/04/2019Acute non-ST elevation myocardial infarction (NSTEMI)03/31/2019 05/31/2019Muscle weakness (generalized) Immunizations ImmunizationAdministration DatesNext DueFlu, Filkkxgihju21/12/2011Influenza (High Dose) Trivalent,PF (Fluzone)03/22/2019,03/17/2018,03/19/2017,02/27/2016, 04/08/2015,02/27/2014Influenza (prior to 2023)05/02/2008,05/31/2007Influenza Vaccine, 6+MO IM (QUADRIVALENT W/PRESERVATIVES)04/26/2013,03/15/2012Pneumo Conj 13-V (2009&after)05/02/2015Pneumococcal 23 kyunup9207/13/2013,04/20/2005TD,PF 7+ (Tenivac)04/20/2005TDAP (Adacel,Boostrix)07/13/2013Td,adult,historic,unspecified 08/16/2002Zoster recombinant adjuvanted (Shingrix)12/29/2018Zoster vaccine, live 09/22/2011 Family History Medical HistoryRelationCommentsCoronary StentingBrother7 stents in total; had been a smoker through collegeOther - See CommentsBrotherthrombocytosisChronic Obstructive Pulmonary DiseaseFatherhe had care for years [facility] PneumoniaFatherfatalBreast CancerMaternal AuntSudden DeathMaternal Auntdied in her sleep, no autopsyUterine CancerMaternal CousinProstate CancerMaternal GrandfatherHeart DiseaseMotherfatal, at [facility] in the 1970[facility], no angiogram or heart surgeryBreast CancerSisterICD - Implantable Cardioverter DefibrillatorNo family hx ofPacemakerNo family hx ofRelationStatusComments BrotherAliveFatherDeceased (Age 93)Maternal AuntDeceased (Age 75)Maternal Cousin (Age 74)Maternal GrandfatherDeceasedMotherDeceased (Age 69)SisterAlive Social History Tobacco UseTypesPacks/DayYears UsedDateSmoking Tobacco: NeverSmokeless Tobacco: NeverAlcohol UseStandard Drinks/WeekCommentsYes0 (1 standard drink = 0.6 oz pure alcohol)Alcoholic Drinks/day: rareAUDIT-CAnswerDate RecordedFrequency of Alcohol AnfbcqeuxayBmjxq00/01/2019Average Number of DrinksNot on file11/12/2018Frequency of Binge DrinkingNot on file11/12/2018PHQ-2AnswerDate RecordedPHQ-2 Score1 07/18/2019Adolescent EducationAnswerDate RecordedGetting School Help NeededNot on file3CommentsUnknownSex and Gender InformationValueDate RecordedSex Assigned at BirthNot on fileLegal UgbZuwaot89/04/2012 4:52 AM MICROPHONE BOOM OPERATOR Gender IdentityNot on fileSexual OrientationNot on file Last Filed Vital Signs Vital SignReadingTime TakenCommentsBlood Sgikbmud254/7402 2:17 PM MICROPHONE BOOM OPERATOR Utpzj434508/07/2019 2:17 PM FBIZovhkivultk28.7 ??C (98.1 ??F)07/18/2019 11:13 AM CSTRespiratory Xtnc952308/07/2019 2:17 PM CSTOxygen Tlkznbewrd63%07/12/2019 8:43 AM CSTInhaled Oxygen Concentration--Tlnfmp01 kg (180 lb 11.2 oz)08/07/2019 2:17 PM JTVIbfiub939.7 cm (5' 8)08/07/2019 2:17 PM CSTBody Mass Index27.48008/07/2019 2:17 PM MICROPHONE BOOM OPERATOR Plan of Treatment Not on file Insurance Care Teams Team MemberRelationshipSpecialtyStart DateEnd Date Danni Ceja MD PCP - GeneralInternal Medicine11/09/18
[2025-06-10 15:06] VITALS: BP 174/79; PULSE 61; RESP 18; TEMP 36.8; O2SAT 96; BMI 28.5
--- NOTE | 2025-06-10 15:12 | CRLHL7_ITS ---
For Patients: As a result of the Century Cures Act, medical imaging exams and procedure reports are released immediately into your electronic medical record. You may view this report before your referring provider. If you have questions, please contact your health care provider. INDICATION: Pain, swelling, history of blood clot in the right leg TECHNIQUE: Ultrasound venous duplex lower left extremity. Compression venous exam was performed using cox-scale, color Doppler, and spectral Doppler analysis. COMPARISON: None. FINDINGS: Sonographic imaging demonstrates the left common femoral, deep femoral, superficial femoral, popliteal, posterior tibial and greater saphenous and the contralateral right common femoral veins to be fully compressible with normal color Doppler blood flow. IMPRESSION: Normal left lower extremity venous ultrasound, no sign of deep venous thrombosis. Dictated by Felton Galdamez MD @ 06/10/2025 5:16:19 PM (Electronically Signed)
--- NOTE | 2025-06-10 16:25 | ED.GENADULT ---
HPI - General Adult General Date Seen: 06/10/25 Chief complaint: Extremity Pain/Injury, Lower Stated complaint: blood clot in leg Time Seen by Provider: 06/10/25 16:24 History of Present Illness HPI narrative: 80 YO F was a history of hypertension, hyperlipidemia, hypothyroidism, asthma, previous right knee replacement and a history of a deep vein thrombosis (she had a right total knee replacement done in March 2024 and was diagnosed with a postoperative DVT. She was treated with Xarelto.), she also had an episode of cellulitis around the right medial knee diagnosed here in the ER on 04/24/2024. She has was having some left knee pain in March so saw orthopedics and had a cortisone injection to her left knee. A couple of days after that she started having some spasms and pain in her left calf. It has been bothering her off and on ever since then. Lately it has also been worse and giving her pain also in the distal thigh in the distal medial quad. Today she noticed that the skin on her distal medial quad was a little bit warm to the touch and appeared pink under lytes. She was worried she might have another DVT so came to the ER today. She is not having any chest pain. No shortness of breath. No swelling or redness in her right leg. No numbness or tingling in her feet. She is not having any fever or chills or body aches or other systemic symptoms of infection. Related Data Home Medications ?Medication ?Instructions ?Recorded ?Confirmed albuterol sulfate 90 mcg/actuation 2 inh inhalation Q4H PRN 05/15/22 03/28/25 aerosol inhaler atorvastatin 40 mg tablet 40 mg PO HS 05/15/22 03/28/25 levothyroxine 100 mcg tablet 100 mcg PO DAILY 05/15/22 03/28/25 mometasone-formoterol HFA 200 2 puff inhalation BID 05/15/22 03/28/25 mcg-5 mcg/actuation aerosol inhaler (Dulera) pantoprazole 20 mg tablet,delayed 20 mg PO DAILY 05/15/22 03/28/25 release metoprolol succinate 25 mg 25 mg PO DAILY 01/17/23 03/28/25 tablet,extended release 24 hr cholecalciferol (vitamin D3) 25 50 mcg PO DAILY 01/18/23 03/28/25 mcg (1,000 unit) capsule vitamin B complex (B 1 tab PO DAILY 01/18/23 03/28/25 Complex-Vitamin B12 tablet) escitalopram oxalate 10 mg tablet 10 mg PO DAILY 03/23/23 03/28/25 fluticasone propionate 50 1 spray intranasal DAILY PRN 03/23/23 03/28/25 mcg/actuation nasal spray,suspension (Flonase Allergy Relief) losartan 25 mg tablet 25 mg PO DAILY 12/20/23 03/28/25 aspirin 81 mg tablet,delayed 81 mg PO QDAY 08/21/24 03/28/25 release (Adult Low Dose Aspirin) Previous Rx's ?Medication ?Instructions ?Recorded acetaminophen 500 mg capsule 500 - 1,000 mg (1 - 2 x 500 mg) PO 03/28/24 Q6H PRN pain #100 caps cephalexin 500 mg capsule 500 mg PO TID #20 caps 06/10/25 Allergies Allergy/AdvReac Type Severity Reaction Status Date / Time doxycycline Allergy Diarrhea Verified 03/28/25 10:09 Penicillins Allergy Anaphylaxis Verified 03/28/25 10:09 Sulfa (Sulfonamide Allergy Verified 03/28/25 10:09 Antibiotics) sulfamethoxazole (From Allergy Rash Verified 03/28/25 10:09 Bactrim) trimethoprim (From Bactrim) Allergy Rash Verified 03/28/25 10:09 RIAN Inhibitors AdvReac Cough Verified 03/28/25 10:09 PFSH PFSH Medical History Takotsubo syndrome (~01/14/23) ?I51.81 - Takotsubo syndrome (ICD-10) Uterine endometriosis ?N80.00 - Endometriosis of the uterus, unspecified (ICD-10) Onychomycosis ?B35.1 - Tinea unguium (ICD-10) Non-ST elevated myocardial infarction (non-STEMI) (~01/14/23) ?I21.4 - Non-ST elevation (NSTEMI) myocardial infarction (ICD-10) Hypothyroidism ?E03.9 - Hypothyroidism, unspecified (ICD-10) GERD (gastroesophageal reflux disease) ?K21.9 - Gastro-esophageal reflux disease without esophagitis (ICD-10) Asthma ?J45.909 - Unspecified asthma, uncomplicated (ICD-10) Hyperlipidemia ?E78.5 - Hyperlipidemia, unspecified (ICD-10) Hypertension ?I10 - Essential (primary) hypertension (ICD-10) Surgical History 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/24) ?Z96.651 - Presence of right artificial knee joint (ICD-10) History of cataract extraction ?Z98.49 - Cataract extraction status, unspecified eye (ICD-10) Hx of colonoscopy ?Z98.890 - Other specified postprocedural states (ICD-10) Family History Sister Alzheimer's dementia Breast cancer Aunt Breast cancer Family/Other Breast cancer Mother Cardiovascular disease Osteoarthritis Father COPD (chronic obstructive pulmonary disease) Osteoarthritis Brother Osteoarthritis Social History (Reviewed 12/20/23 @ 10:20 by Soni Riggins ~ [facility], [facility]) Narrative: . Lives in a house with her . Denies tobacco, EtOH, recreational drug use. What is your current living situation?: I presently have a place to live Problems where you live: no known problems Problems where you live details: NA In the past 12 months, utilities in danger of being shut off: no In past 12 months, lack of transportation kept you from medical appts, meetings, work, or getting things needed for daily living: no In the past 12 mos, have been you worried that your food would run out before you had money to buy more?: never true In the past 12 mos, the food you bought just didn't last and you didn't have money to buy more?: never true Highest level of school completed/degree received: Bachelor's degree Smoking Status: Never smoker Do you use any of these nicotine containing products: None Second hand tobacco smoke exposure: No How often do you have a drink containing alcohol: never How often do you have six or more drinks on one occasion: Never AUDIT-C Alcohol total score: 0 Non-prescribed substance use: denies use Caffeine: Yes How often does anyone, including family, friends and others, physically hurt you: never How often does anyone, including family, friends and others, insult or talk down to you: never How often does anyone, including family, friends and others, threaten you with harm: never How often does anyone, including family, friends and others, scream or curse at you: never Are you using contraception or practicing any form of control: No service: No Exam Narrative: Exam Narrative: Constitutional: Appears well-developed and well-nourished. Alert. Conversant. Non toxic. HENT: Head: Atraumatic. Nose: Nose normal. Mouth/Throat: Oral mucosa is clear . Mucous membranes are moist. Eyes: Conjunctivae normal. EOM normal. Pupils equal, round, and reactive to light. No scleral icterus. Neck: Normal range of motion. Neck supple. No tracheal deviation present. Cardiovascular: Normal rate, regular rhythm. No gallop. No friction rub. No murmur heard. Symmetric PT artery pulses Pulmonary/Chest: Effort normal. No stridor. No respiratory distress. Musculoskeletal: RUE: Normal range of motion. No tenderness. No deformity LUE: Normal range of motion. No tenderness. No deformity RLE: Normal range of motion. No edema. No tenderness. No deformity. Healed total knee replacement incision looks good. LLE: Normal range of motion in her hip. She is able to flex her knee to about 90? but feels like her flexion is limited by stiffness there. Ankle is normal. On inspection she does have very subtle pink discoloration and subtle warmth of the skin on the anterior medial/distal thigh roughly 6 x 8 cm in size. The edges of this are very indistinct. She does have multiple varicosities in that area but none of these appear to be inflamed or nodular or tender. I do not see any redness or warmth of the knee joint or over the patella. There is no redness or warmth over the calf or tafoya. There is no fluctuance. No crepitus. The patient feels as if there is a fullness in her popliteal fossa but I cannot appreciate any palpable fullness or abscess or fluid collection on my exam. Lymph: No ascending lymphangitis Neurological: Alert and oriented to person, place, and time. Normal strength. CN II-VII intact. No sensory deficit. GCS eye subscore is 4. GCS verbal subscore is 5. GCS motor subscore is 6. Normal coordination Skin: Skin is warm and dry. No rash noted. No pallor. Normal capillary refill. Psychiatric: Normal mood. Normal affect. Const: Vital Signs, click to edit/add: Vital Signs - 24 hr 06/10/25 15:06 Temperature 98.2 F Pulse Rate [Pulse Oximeter] 61 Respiratory Rate 18 Blood Pressure [Ri ght Upper Arm] 174/79 H Pulse Oximetry 96 Oxygen Delivery Me thod Room Air Course Vital Signs Vital signs: Initial Vital Signs Temperature 98.2 F 06/10/25 15:06 Temperature Source Temporal Artery Scan 06/10/25 15:06 Pulse Rate 61 06/10/25 15:06 Respiratory Rate 18 06/10/25 15:06 Blood Pressure 174/79 H 06/10/25 15:06 Blood Pressure Mean 110 H 06/10/25 15:06 Pulse Oximetry 96 06/10/25 15:06 Oxygen Delivery Method Room Air 06/10/25 15:06 Vital Signs Temperature 98.2 F 06/10/25 15:06 Pulse Rate 61 06/10/25 15:06 Respiratory Rate 18 06/10/25 15:06 Blood Pressure 174/79 H 06/10/25 15:06 Pulse Oximetry 96 06/10/25 15:06 Oxygen Delivery Method Room Air 06/10/25 15:06 Temperature 98.2 F 06/10/25 15:06 Pulse Rate 61 06/10/25 15:06 Respiratory Rate 18 06/10/25 15:06 Blood Pressure 174/79 H 06/10/25 15:06 Pulse Oximetry 96 06/10/25 15:06 Oxygen Delivery Method Room Air 06/10/25 15:06 Medications Administered Medications: Discontinued Medications Generic Name Dose Route Start Last Admin Trade Name Freq PRN Reason Stop Dose Admin Cephalexin HCl 500 mg 06/10/25 17:32 06/10/25 17:39 Cephalexin 500 Mg Capsule PO 06/10/25 17:33 500 mg ONCE ONE Administration Medical Decision Making [facility] Narrative Medical decision making narrative: 80-year-old female presenting to the ER today her with concerned that she might have a DVT in her left leg. She has a known history of a DVT in her right leg that occurred postop after she had a right total knee replacement last year. She was anticoagulated for several months but is now off that medication. She actually says she has been having pain in her low left calf for a couple of months and lately it has been spreading also to her left distal thigh. What brought her to the ER today was that she noticed a little bit of redness and warmth on the knee anteromedial distal thigh. DVT ultrasound is obtained here in the ER and is fortunately negative for DVT. There is no sonographic evidence for any Briones cyst but she does feel like there is some fullness in the back of her knee. I wonder if she may have a Briones cyst as well and advised close follow-up with orthopedics for further evaluation. Potentially may need an MRI for further characterization. She is not having any back pain or any numbness or weakness down the leg to suggest a lumbar radiculopathy. She does have good distal cap refill and no signs of any acute limb ischemia. She does have very subtle pink discoloration of her skin on the anteromedial distal thigh and subtle warms come with compared to the contralateral side. I think it is possible she could be developing a mild cellulitis there. However this is not a definitive diagnosis. There is no evidence for any abscess or necrotizing infection. She is not having any other symptoms of systemic illness. No signs of sepsis, bacteremia. I think it is reasonable to start her on a short course of Keflex in case there is an early cellulitis. First dose given here in the ER and prescription sent to her pharmacy at [facility] (she declined [facility]). I would recommend close outpatient follow-up with orthopedics. Precautions for return to the ER reviewed. Imaging Data US Venous LLE: Attestation: I have reviewed the pertinent imaging results. Radiologist's impression: IMPRESSION: Normal left lower extremity venous ultrasound, no sign of deep venous thrombosis. Discharge Plan Discharge Clinical Impression: Acute pain of left lower extremity, Cellulitis Patient Disposition: Home, Self-Care Condition: Stable Instructions: Cellulitis (ED), Knee Pain (ED) Additional Instructions: As we discussed, your ultrasound looks good today. There is no sign of blood clots. Based on your workup here in the emergency department today, it is not clear why you been having the pain in your calf for the past couple of months. It is very important for you to follow-up with the [facility] for recheck. Please call [phone] tomorrow morning to arrange an ER follow-up visit for the next 2-4 days. You may need further workup with an MRI of your knee, or other testing as recommended by Orthopedics I do notes that you have some subtle warmth and redness on the skin on the inside of your thigh just above your knee. This could be an area of infection of the skin called cellulitis. Please take the antibiotics for the next 7 days to help treat this. If he noticed worsening redness, spreading redness, or develop other symptoms such as high fever, chills, or body aches, please return to the ER or check with her doctor right away. Prescriptions: New cephalexin 500 mg capsule 500 mg PO TID Qty: 20 0RF No Action losartan 25 mg tablet 25 mg PO DAILY aspirin [Adult Low Dose Aspirin] 81 mg tablet,delayed release (DR/EC) 81 mg PO QDAY levothyroxine 100 mcg tablet 100 mcg PO DAILY atorvastatin 40 mg tablet 40 mg PO HS pantoprazole 20 mg tablet,delayed release (DR/EC) 20 mg PO DAILY Dulera 200-5 mcg/actuation HFA aerosol inhaler 2 puff inhalation BID Patient Comments: albuterol sulfate 90 mcg/actuation HFA aerosol inhaler 2 inh inhalation Q4H PRN metoprolol succinate 25 mg tablet extended release 24 hr 25 mg PO DAILY cholecalciferol (vitamin D3) 25 mcg (1,000 unit) capsule 50 mcg PO DAILY vitamin B complex [B Complex-Vitamin B12] Tablet 1 tab PO DAILY acetaminophen 500 mg capsule 500 - 1,000 mg PO Q6H MDD 4000mg per day PRN (Reason: pain) Qty: 100 0RF escitalopram oxalate 10 mg tablet 10 mg PO DAILY fluticasone propionate [Flonase Allergy Relief] 50 mcg/actuation spray,suspension 1 spray intranasal DAILY PRN Rx Instructions: administer into each nostril Follow Up/Referrals: Niall Long MD [Primary Care Provider, Family Practice] Stand Alone Forms: [employer] Info Instructions
== END 2025-06-10 17:45 | disposition home or self-care (01) ==
LOC: ED 17:36
PROVIDERS: Emergency Provider Emergency Medicine; PCP Family Medicine
DX: M79.662 Pain in left lower leg (principal); L03.116 Cellulitis of left lower limb; Z86.718 Personal history of other venous thrombosis and embolism
CPT/HCPCS: 93971; 99283; 99284; A9270